=== PATIENT | female | born 1955 | race Caucasian/White ===

== ENCOUNTER → 2016-08-06 | Outpatient (REF) | payer OTHER ==
[~2016-08-06] MED LIST: ALEV220C2 PO; AMBI5TAB PO; ASPI1TAB PO; CENTTAB PO; CLON1TAB PO; DOCU10CA PO; ESTR1TAB3 PO; ESTR3TA PO; FISH1000 PO; GABA-283 PO; HYDR-3713 PO; LACT10SO29 PO; LYSI500C PO; MOBI15TA PO; PRIL20CA9 PO; PROBCAP4 PO; SALON PAS TOP; TAPA5TAB PO; TRAM50TA2 PO; VALT500T PO; VITA100041 PO; VITA10006 PO; VITA100072 PO; ZOCO20TA PO; [UNRECOGNIZED DRUG - OTHER] PO; [UNRECOGNIZED DRUG - REMARK] PO; [UNRECOGNIZED DRUG - REMARK] PO
[2016-08-06 11:50] LABS: BASO % 1.1 % (0.0-1.0); EOS # 0.2 K/mm3 (0.0-0.50); EOS % 6.5 % (0.0-3.0); LARGE UNSTAINED CELL # 0.1 K/mm3 (0.0-0.4); LARGE UNSTAINED CELL % 1.5 % (0.0-4.0); LYMPH # 1.1 K/mm3 (1.5-4.5); LYMPH % 29.6 % (24.0-44.0); MEAN CORPUSCULAR HEMOGLOBIN 30.5 pg (27.0-33.0); MEAN CORPUSCULAR HGB CONC 32.8 g/dl (32.0-36.5); MEAN CORPUSCULAR VOLUME 92.8 fl (80.0-96.0); MONO # 0.2 K/mm3 (0.0-0.8); MONO % 6.4 % (0.0-5.0); NEUTROPHILS # 1.9 K/mm3 (1.8-7.7); PLATELET COUNT, AUTOMATED 203 k/mm3 (150-450); WHITE BLOOD COUNT 3.5 K/mm3 (4.0-10.0)
[2016-08-06 11:52] LABS: ALBUMIN 3.4 GM/DL (3.2-5.2); ALBUMIN/GLOBULIN RATIO 1.31 (1.00-1.93); ALKALINE PHOSPHATASE 52 U/L (45-117); ALT/SGPT 23 U/L (12-78); ANION GAP 9 MEQ/L (8-16); AST/SGOT 20 U/L (15-37); BILIRUBIN,TOTAL 0.4 MG/DL (0.2-1.0); BLOOD UREA NITROGEN 14 MG/DL (7-18); CALCIUM LEVEL 8.8 MG/DL (8.5-10.1); CARBON DIOXIDE LEVEL 31 MEQ/L (21-32); CHLORIDE LEVEL 105 MEQ/L (98-107); CHOLESTEROL LEVEL 176 MG/DL (<200); CREATININE FOR GFR 0.84 MG/DL (0.55-1.02); FREE T4 0.67 NG/DL (0.76-1.46); GLOMERULAR FILTRATION RATE > 60.0 (>51); GLUCOSE, FASTING 75 MG/DL (70-105); POTASSIUM SERUM 4.3 MEQ/L (3.5-5.1); SODIUM LEVEL 145 MEQ/L (136-145); TRIGLYCERIDES LEVEL 49 MG/DL (<150)
[2016-08-06 12:06] LABS: VITAMIN B12 LEVEL 1591 PG/ML (247-911)
[2016-08-07 11:04] LABS: PRETREATED FOLATE FOR RBCFOL 10.9 NG/ML
== END ==
LOC: M SFHCPLAZ 07:58
PROVIDERS: ATTEND Family Medicine
DX: D72.819 Decreased white blood cell count, unspecified (principal); E55.9 Vitamin D deficiency, unspecified; E05.20 Thyrotoxicosis with toxic multinodular goiter without thyrotoxic crisis or storm; E53.8 Deficiency of other specified B group vitamins

== ENCOUNTER → 2016-08-30 | Outpatient (CLI) | payer OTHER ==
--- NOTE | 2016-08-31 03:15 | REP ---
Clinical: Contusion. Technique: AP, lateral, bilateral oblique views of the right foot. Findings: Age-related degenerative changes are appreciated. There is no evidence for acute fracture or dislocation. Very subtle non acute fracture at the base of the fifth metatarsal bone cannot be excluded. No subcutaneous emphysema or radiodense foreign body. Impression: No evidence for acute fracture or dislocation. Very subtle nonacute fracture at the base of the fifth metatarsal bone cannot be excluded and should be correlated with physical examination. Signed by Josue Brooks MD 08/31/2016 03:06 A
== END ==
LOC: M RAD 12:29
PROVIDERS: ATTEND Physician Assistant Medical
DX: R10.12 Left upper quadrant pain (principal)

== ENCOUNTER → 2016-10-15 | Outpatient (REF) | payer OTHER ==
[2016-10-15 12:11] LABS: MEAN CORPUSCULAR HEMOGLOBIN 30.2 pg (27.0-33.0); MEAN CORPUSCULAR HGB CONC 32.4 g/dl (32.0-36.5); MEAN CORPUSCULAR VOLUME 93.2 fl (80.0-96.0); RED CELL DISTRIBUTION WIDTH 13.1 % (11.5-14.5); WHITE BLOOD COUNT 3.8 K/mm3 (4.0-10.0)
[2016-10-15 12:42] LABS: ALBUMIN 3.5 GM/DL (3.2-5.2); ALKALINE PHOSPHATASE 53 U/L (45-117); ALT/SGPT 22 U/L (12-78); ANION GAP 5 MEQ/L (8-16); AST/SGOT 21 U/L (15-37); BILIRUBIN,TOTAL 0.5 MG/DL (0.2-1.0); BLOOD UREA NITROGEN 15 MG/DL (7-18); CALCIUM LEVEL 8.8 MG/DL (8.5-10.1); CARBON DIOXIDE LEVEL 33 MEQ/L (21-32); CHLORIDE LEVEL 106 MEQ/L (98-107); CREATININE FOR GFR 0.74 MG/DL (0.55-1.02); GLOMERULAR FILTRATION RATE > 60.0 (>51); GLUCOSE, FASTING 88 MG/DL (70-105); MAGNESIUM LEVEL 2.1 MG/DL (1.8-2.4); POTASSIUM SERUM 3.8 MEQ/L (3.5-5.1); SODIUM LEVEL 144 MEQ/L (136-145)
[2016-10-15 13:10] LABS: BASOPHILS 2 % (0-4); EOSINOPHILS 13 % (0-5)
[2016-10-15 13:11] LABS: ANISOCYTOSIS 1+
== END ==
LOC: M SFHCPLAZ 07:54
PROVIDERS: ATTEND Family Medicine
DX: D72.819 Decreased white blood cell count, unspecified (principal); E05.20 Thyrotoxicosis with toxic multinodular goiter without thyrotoxic crisis or storm; M05.79 Rheumatoid arthritis with rheumatoid factor of multiple sites without organ or systems involvement

== ENCOUNTER → 2016-11-28 | Outpatient (CLI) | payer OTHER ==
[2016-11-28 12:07] LABS: BASO % 0.6 % (0.0-1.0); EOS # 0.2 K/mm3 (0.0-0.50); EOS % 1.8 % (0.0-3.0); LARGE UNSTAINED CELL # 0.1 K/mm3 (0.0-0.4); LARGE UNSTAINED CELL % 1.1 % (0.0-4.0); LYMPH # 0.8 K/mm3 (1.5-4.5); LYMPH % 9.3 % (24.0-44.0); MEAN CORPUSCULAR HEMOGLOBIN 31.2 pg (27.0-33.0); MEAN CORPUSCULAR HGB CONC 33.6 g/dl (32.0-36.5); MEAN CORPUSCULAR VOLUME 92.8 fl (80.0-96.0); MONO # 0.3 K/mm3 (0.0-0.8); MONO % 3.1 % (0.0-5.0); NEUTROPHILS # 6.8 K/mm3 (1.8-7.7); NEUTROPHILS % 84.1 % (36.0-66.0); PLATELET COUNT, AUTOMATED 199 k/mm3 (150-450); RED CELL DISTRIBUTION WIDTH 12.7 % (11.5-14.5); WHITE BLOOD COUNT 8.1 K/mm3 (4.0-10.0)
--- NOTE | 2016-11-29 03:19 | REP ---
Clinical: Left upper quadrant abdominal pain. Technique: Upright view of the chest with supine and upright views of the abdomen and pelvis. Findings: Moderate chronic-appearing scoliosis noted. Frontal upright view of the chest demonstrates no acute cardiopulmonary process or free air below the diaphragm to suspect pneumoperitoneum. Supine and upright views of the abdomen and pelvis demonstrate nonspecific bowel gas pattern without obstruction or perforation. No organomegaly. Right intrarenal calculus cannot be excluded. Phleboliths noted in the pelvis. Impression: Nonspecific bowel gas pattern. Chronic scoliosis. Possible nephrolithiasis. Signed by Jsoue Brooks MD 11/29/2016 03:10 A
== END ==
LOC: M LAB 10:57
PROVIDERS: ATTEND Physician Assistant Medical
DX: R10.12 Left upper quadrant pain (principal)

== ENCOUNTER → 2017-03-12 | Outpatient (REF) | payer OTHER ==
[~2017-03-12] MED LIST changes: +VICO5TAB16 PO; +VITA-182 PO; -VITA100041 PO
[2017-03-12 12:20] LABS: MEAN CORPUSCULAR HGB CONC 32.7 g/dl (32.0-36.5); MEAN CORPUSCULAR VOLUME 91.6 fl (80.0-96.0); RED CELL DISTRIBUTION WIDTH 12.6 % (11.5-14.5); WHITE BLOOD COUNT 5.4 10^3/uL (4.0-10.0)
[2017-03-12 12:53] LABS: ALBUMIN 3.5 GM/DL (3.2-5.2); ALBUMIN/GLOBULIN RATIO 1.06 (1.00-1.93); ALKALINE PHOSPHATASE 64 U/L (45-117); ALT/SGPT 21 U/L (12-78); ANION GAP 6 MEQ/L (8-16); AST/SGOT 15 U/L (15-37); BILIRUBIN,TOTAL 0.4 MG/DL (0.2-1.0); BLOOD UREA NITROGEN 15 MG/DL (7-18); CALCIUM LEVEL 9.7 MG/DL (8.5-10.1); CARBON DIOXIDE LEVEL 30 MEQ/L (21-32); CHLORIDE LEVEL 104 MEQ/L (98-107); CHOLESTEROL LEVEL 216 MG/DL (<200); CREATININE FOR GFR 0.71 MG/DL (0.55-1.02); FREE T4 0.83 NG/DL (0.76-1.46); GLOMERULAR FILTRATION RATE > 60.0 (>51); GLUCOSE, FASTING 89 MG/DL (70-105); POTASSIUM SERUM 4.2 MEQ/L (3.5-5.1); SODIUM LEVEL 140 MEQ/L (136-145); TOTAL PROTEIN 6.8 GM/DL (6.4-8.2); TRIGLYCERIDES LEVEL 86 MG/DL (<150)
[2017-03-12 12:59] LABS: EOSINOPHILS 5 % (0-5)
== END ==
LOC: M SFHCPLAZ 09:59
PROVIDERS: ATTEND Family Medicine
DX: D72.819 Decreased white blood cell count, unspecified (principal); E78.2 Mixed hyperlipidemia; E66.3 Overweight

== ENCOUNTER → 2017-03-19 | Outpatient (REF) | payer OTHER ==
[2017-03-19 17:46] LABS: FREE T4 0.79 NG/DL (0.76-1.46)
[2017-03-20 09:30] LABS: THYROID PEROXIDASE ANTIBODY < 28.0 U/ML (<60.0)
== END ==
LOC: M SFHCPLAZ 11:33
PROVIDERS: ATTEND Family Medicine
DX: L50.9 Urticaria, unspecified (principal)

== ENCOUNTER → 2017-03-22 | Outpatient (CLI) | payer OTHER ==
--- NOTE | 2017-03-22 10:21 | REP ---
Thyroid sonography: History: Toxic multinodular goiter. Comparison study is from April 01, 2015. Findings: Thyroid isthmus remains thickened at 1.3 cm. Right lobe dimensions are 7.7 x 2.1 x 2.7 cm. The left lobe is also enlarged measuring 5.0 x 1.6 x 2.0 cm. The gland is heterogeneously enlarged with multiple nodules. On the right, there are two complex nodules measuring 1.2 x 0.6 x 1.1 cm and 4.6 x 2.0 x 4.3 cm. There is a right isthmic nodule measuring 1.2 cm in greatest diameter and a left isthmic nodule measuring 1.3 cm in greatest diameter. There is calcification in the left isthmus measuring 0.9 cm. A nodule in the left lobe measures 2.5 x 1.9 x 1.4 cm. The study is felt to be essentially unchanged. Impression: Multinodular goiter. Signed by Pedro Black MD 03/22/2017 03:49 P
== END ==
LOC: M RAD 08:39
PROVIDERS: ATTEND Family Medicine
DX: E04.2 Nontoxic multinodular goiter (principal)

== ENCOUNTER 2017-03-31 03:25 | Emergency (ER) | payer OTHER ==
[~2017-03-31] VITALS: Ht 170.2 cm; Wt 85.5 kg
[~2017-03-31 03:25] MED LIST changes: -VICO5TAB16 PO
[2017-03-31] MEDS ORDERED: VICO5TAB16 PO (03:40)
[2017-03-31 06:09] VITALS: BP 147/81
[2017-03-31] MEDS ORDERED: KETOROLAC 60 MG/2 ML VIAL (J1885) IM ONE (06:15)
--- NOTE | 2017-03-31 11:30 | REP ---
Cervical spine series: Five views. History: Pain. Comparison radiographs April 20, 2014. Findings: Lateral views show that the patient is status post ventral discectomy and fusion across the C3 through C6 level. There is discogenic spurring anteriorly at C2-3 and at C6-7 and C7-T1. There is reversal of the normal cervical lordosis. There is mild facet hypertrophy in the mid cervical spine. Vascular calcification is noted in the left carotid. No acute bony abnormality is seen. Impression: Status post ventral discectomy and fusion from C4-C7. Degenerative disc disease C6-7 and C7-T1 as well as mild discogenic spurring at C2-3. Straightening. Signed by Pedro Black MD 03/31/2017 08:06 A
== END 2017-03-31 06:42 | disposition home or self-care (01) ==
LOC: M ED 03:25
DX: G89.29 Other chronic pain (principal); M54.2 Cervicalgia; M54.6 Pain in thoracic spine; R06.02 Shortness of breath; E03.9 Hypothyroidism, unspecified; K21.9 Gastro-esophageal reflux disease without esophagitis; M19.90 Unspecified osteoarthritis, unspecified site; Z98.1 Arthrodesis status; Z79.899 Other long term (current) drug therapy; Z79.82 Long term (current) use of aspirin; Z88.0 Allergy status to penicillin; Z88.1 Allergy status to other antibiotic agents; F17.210 Nicotine dependence, cigarettes, uncomplicated
CPT/HCPCS: 72040; 96372; 99282; J1885

== ENCOUNTER → 2017-04-06 | Outpatient (CLI) | payer OTHER ==
[~2017-04-06] MED LIST changes: +VICO5TAB16 PO
--- NOTE | 2017-04-06 14:00 | REP ---
May a Shantell left shoulder four views: The acromioclavicular joint is widened. This could be postsurgical, post-traumatic or congenital. There is no acute fracture or dislocation. The glenohumeral articulation is unremarkable. No calcifications or foreign bodies. Impression: The acromioclavicular joint is widened. Otherwise, negative left shoulder. Signed by Paresh Zamudio MD 04/06/2017 01:52 P
--- NOTE | 2017-04-06 14:01 | REP ---
Left forearm two views: There is a tiny density in the soft tissues at the midshaft level, possibly a foreign body. There is no fracture or dislocation. Mineralization joint spaces otherwise are unremarkable. Signed by Paresh Zamudio MD 04/06/2017 01:53 P
== END ==
LOC: M RAD 12:25
PROVIDERS: ATTEND Physician Assistant Medical
DX: M79.602 Pain in left arm (principal)

== ENCOUNTER → 2017-04-09 | Outpatient (CLI) | payer OTHER ==
--- NOTE | 2017-04-09 20:23 | REP ---
LEFT ELBOW, COMPLETE: 04/09/2017. Comparison: Left forearm series. Clinical history: Elbow pain. Findings: Four views show no evidence of joint effusion on the lateral projection. I see no avulsion of the triceps insertion nor abnormal soft-tissue swelling about the olecranon. Radial head and capitellum align normally on all projections. There is no supracondylar fracture. Impression: 1. Negative left elbow series. Signed by Derrick Ramires MD 04/09/2017 08:32 P
--- NOTE | 2017-04-09 20:24 | REP ---
LEFT FOREARM SERIES, COMPLETE: 04/09/2017. Clinical history: Elbow and forearm pain. Findings: Two-view show the radius and ulna without fracture or focal lesion. Soft tissue calcification along the dorsal aspect of the forearm likely a phlebolith. Minor degenerative changes at the wrist noted. Impression: 1. No visible fracture. Signed by Derrick Ramires MD 04/09/2017 08:32 P
== END ==
LOC: M RAD 17:39
PROVIDERS: ATTEND Nurse Practitioner Adult Health
DX: M25.522 Pain in left elbow (principal)

== ENCOUNTER → 2017-06-05 | Outpatient (REF) | payer OTHER ==
[2017-06-05 16:03] LABS: FREE T4 0.59 NG/DL (0.76-1.46)
== END ==
LOC: M SFHCPLAZ 13:33
PROVIDERS: ATTEND Physician Assistant Medical
DX: F41.9 Anxiety disorder, unspecified (principal)

== ENCOUNTER 2017-06-18 10:34 | Outpatient (RCR) | payer OTHER | END 2017-07-17 | LOC: M PT 10:34 | DX: Z51.89 Encounter for other specified aftercare (principal); M48.02 Spinal stenosis, cervical region | CPT/HCPCS: 97010 ==

== ENCOUNTER → 2017-06-18 | Outpatient (REF) | payer OTHER ==
[2017-06-18 10:39] LABS: BASO % 0.9 % (0.0-1.0); EOS # 0.2 10^3/uL (0.0-0.50); EOS % 3.7 % (0.0-3.0); HEMATOCRIT 39.6 % (36.0-47.0); HEMOGLOBIN 12.7 g/dl (12.0-16.0); IMMATURE GRANULOCYTE % 0.2 % (0-0); LYMPH # 1.3 10^3/uL (1.5-4.5); LYMPH % 28.7 % (24.0-44.0); MEAN CORPUSCULAR HEMOGLOBIN 28.7 pg (27.0-33.0); MEAN CORPUSCULAR HGB CONC 32.1 g/dl (32.0-36.5); MEAN CORPUSCULAR VOLUME 89.6 fl (80.0-96.0); MONO # 0.4 10^3/uL (0.0-0.8); MONO % 8.3 % (0.0-5.0); NEUTROPHILS # 2.7 10^3/uL (1.8-7.7); NEUTROPHILS % 58.2 % (36.0-66.0); PLATELET COUNT, AUTOMATED 276 10^3/uL (150-450); RED BLOOD COUNT 4.42 10^6/uL (4.00-5.40); RED CELL DISTRIBUTION WIDTH 13.1 % (11.5-14.5); WHITE BLOOD COUNT 4.6 10^3/uL (4.0-10.0)
[2017-06-18 10:44] LABS: AMORPHOUS SEDIMENT MODERATE (NEGATIVE); APPEARANCE, URINE CLOUDY (CLEAR); BACTERIA, URINE AUTO NEGATIVE (NEGATIVE); BILIRUBIN, URINE AUTO 1+ (NEGATIVE); BLOOD, URINE BLOOD NEGATIVE (NEGATIVE); COLOR, URINE YELLOW (YELLOW); GLUCOSE, URINE (UA) AUTO NEGATIVE (NEGATIVE); KETONE, URINE AUTO NEGATIVE (NEGATIVE); LEUKOCYTE ESTERASE, URINE AUTO NEGATIVE (NEGATIVE); NITRITE, URINE AUTO NEGATIVE (NEGATIVE); PROTEIN, URINE AUTO NEGATIVE (NEGATIVE); RBC, URINE AUTO 1 /HPF (0-3); SPECIFIC GRAVITY URINE AUTO 1.016 (1.002-1.035); SQUAMOUS EPITHELIAL CELL UR AU 0 /HPF (0-6); WBC, URINE AUTO 0 /HPF (0-3)
[2017-06-18 10:57] LABS: PTH INTACT 27.8 PG/ML (14.0-72.0); TOTAL 25(OH) VITAMIN D 38.3 NG/ML (30.0-100.0)
[2017-06-18 11:01] LABS: ESTIMATED AVERAGE GLUCOSE 108 MG/DL (60-110); HEMOGLOBIN A1c 5.4 %
[2017-06-18 11:07] LABS: ALBUMIN 3.3 GM/DL (3.2-5.2); ALKALINE PHOSPHATASE 83 U/L (45-117); ALT/SGPT 17 U/L (12-78); ANION GAP 5 MEQ/L (8-16); AST/SGOT 18 U/L (7-37); BILIRUBIN,TOTAL 0.4 MG/DL (0.2-1.0); BLOOD UREA NITROGEN 17 MG/DL (7-18); CALCIUM LEVEL 9.2 MG/DL (8.5-10.1); CARBON DIOXIDE LEVEL 34 MEQ/L (21-32); CHLORIDE LEVEL 103 MEQ/L (98-107); CREATININE FOR GFR 0.62 MG/DL (0.55-1.02); FREE T4 0.56 NG/DL (0.76-1.46); GLOMERULAR FILTRATION RATE > 60.0 (>51); GLUCOSE, FASTING 85 MG/DL (70-105); POTASSIUM SERUM 4.2 MEQ/L (3.5-5.1); SODIUM LEVEL 142 MEQ/L (136-145); TOTAL PROTEIN 6.3 GM/DL (6.4-8.2)
[2017-06-18 11:09] LABS: CREATININE, URINE 86.4 MG/DL; MALB URINE SIEMENS < 5.0 MG/L; MAU/CREAT RATIO 5.7 MCG/MG (0.0-30.0)
== END ==
LOC: M SFHCPLAZ 09:10
DX: N30.00 Acute cystitis without hematuria (principal); D72.819 Decreased white blood cell count, unspecified; E55.9 Vitamin D deficiency, unspecified; E05.20 Thyrotoxicosis with toxic multinodular goiter without thyrotoxic crisis or storm; R73.01 Impaired fasting glucose

== ENCOUNTER → 2017-08-19 | Outpatient (CLI) | payer OTHER | LOC: M WHC 14:12 | DX: Z12.31 Encounter for screening mammogram for malignant neoplasm of breast (principal); Z78.0 Asymptomatic menopausal state | CPT/HCPCS: 77067 ==

== ENCOUNTER → 2017-10-17 | Outpatient (REF) | payer OTHER | LOC: M SFHCWAGY 17:47 | DX: N94.10 Unspecified dyspareunia (principal); N89.8 Other specified noninflammatory disorders of vagina; R30.0 Dysuria | CPT/HCPCS: 87086 ==

== ENCOUNTER → 2017-10-21 | Outpatient (REF) | payer OTHER ==
[2017-10-21 11:49] LABS: BASO % 1.1 % (0.0-1.0); EOS # 0.3 10^3/uL (0.0-0.50); EOS % 8.2 % (0.0-3.0); HEMATOCRIT 41.4 % (36.0-47.0); HEMOGLOBIN 13.4 g/dl (12.0-15.5); IMMATURE GRANULOCYTE % 0.3 % (0-3.0); LYMPH # 1.5 10^3/uL (1.5-4.5); MEAN CORPUSCULAR HEMOGLOBIN 29.3 pg (27.0-33.0); MEAN CORPUSCULAR HGB CONC 32.4 g/dl (32.0-36.5); MEAN CORPUSCULAR VOLUME 90.6 fl (80.0-96.0); MONO # 0.3 10^3/uL (0.0-0.8); MONO % 8.5 % (0.0-5.0); NEUTROPHILS # 1.5 10^3/uL (1.8-7.7); NEUTROPHILS % 40.9 % (36.0-66.0); PLATELET COUNT, AUTOMATED 246 10^3/uL (150-450); RED BLOOD COUNT 4.57 10^6/uL (4.00-5.40); RED CELL DISTRIBUTION WIDTH 14.5 % (11.5-14.5); WHITE BLOOD COUNT 3.5 10^3/uL (4.0-10.0)
[2017-10-21 12:09] LABS: VITAMIN B12 LEVEL 1214 PG/ML (247-911)
[2017-10-21 12:46] LABS: ALBUMIN 3.7 GM/DL (3.2-5.2); ALBUMIN/GLOBULIN RATIO 1.19 (1.00-1.93); ALKALINE PHOSPHATASE 75 U/L (45-117); ALT/SGPT 23 U/L (12-78); ANION GAP 7 MEQ/L (8-16); AST/SGOT 24 U/L (7-37); BILIRUBIN,TOTAL 0.5 MG/DL (0.2-1.0); BLOOD UREA NITROGEN 17 MG/DL (7-18); C REACTIVE PROTEIN QUANTITATIV < 0.30 MG/DL (0.00-0.30); CALCIUM LEVEL 9.4 MG/DL (8.8-10.2); CARBON DIOXIDE LEVEL 30 MEQ/L (21-32); CHLORIDE LEVEL 105 MEQ/L (98-107); CHOLESTEROL LEVEL 229 MG/DL (<200); CHOLESTEROL RISK RATIO 2.662 (<5); CPK CREATINE PHOSPHOKINASE 185 U/L (26-192); CREATININE FOR GFR 1.02 MG/DL (0.55-1.30); FREE T4 0.58 NG/DL (0.76-1.46); GLOMERULAR FILTRATION RATE 58.8 (>45); GLUCOSE, FASTING 83 MG/DL (70-100); HDL CHOLESTEROL 86 MG/DL (>40); LDL CHOLESTEROL 129.4 MG/DL (<100); NON-HDL-C 143 MG/DL; POTASSIUM SERUM 4.3 MEQ/L (3.5-5.1); SODIUM LEVEL 142 MEQ/L (136-145); TOTAL PROTEIN 6.8 GM/DL (6.4-8.2); TRIGLYCERIDES LEVEL 68 MG/DL (<150)
[2017-10-21 12:59] LABS: ESTIMATED AVERAGE GLUCOSE 108 MG/DL (60-110); HEMOGLOBIN A1c 5.4 %
[2017-10-22 14:19] LABS: INSULIN LEVEL 5.2 uIU/mL (2.6-24.9)
== END ==
LOC: M SFHCPLAZ 08:31
DX: E53.8 Deficiency of other specified B group vitamins (principal); E78.2 Mixed hyperlipidemia; R73.01 Impaired fasting glucose
CPT/HCPCS: 82550

== ENCOUNTER → 2017-10-30 | Outpatient (CLI) | payer OTHER | LOC: M SLEEP HO 09:40 | DX: G47.33 Obstructive sleep apnea (adult) (pediatric) (principal) | CPT/HCPCS: G0399 ==

== ENCOUNTER → 2017-11-04 | Outpatient (CLI) | payer OTHER | LOC: M SMT 10:00 | DX: R05 Cough (principal); Z98.1 Arthrodesis status | CPT/HCPCS: 70360 ==

== ENCOUNTER → 2017-11-12 | Outpatient (REF) | payer OTHER | LOC: M SFHCWAGY 11:28 | DX: Z12.4 Encounter for screening for malignant neoplasm of cervix (principal) ==

== ENCOUNTER → 2017-11-18 | Outpatient (CLI) | payer OTHER ==
[~2017-11-18] MED LIST changes: -ALEV220C2 PO; -AMBI5TAB PO; -ASPI1TAB PO; -CENTTAB PO; -CLON1TAB PO; -DOCU10CA PO; -ESTR1TAB3 PO; -ESTR3TA PO; -FISH1000 PO; -GABA-283 PO; -HYDR-3713 PO; +ISOVUE-370 76% 100ML VIAL (Q9967) As Ordered; -LACT10SO29 PO; -LYSI500C PO; -MOBI15TA PO; -PRIL20CA9 PO; -PROBCAP4 PO; -SALON PAS TOP; -TAPA5TAB PO; -TRAM50TA2 PO; -VALT500T PO; -VICO5TAB16 PO; -VITA-182 PO; -VITA10006 PO; -VITA100072 PO; -ZOCO20TA PO; -[UNRECOGNIZED DRUG - OTHER] PO; -[UNRECOGNIZED DRUG - REMARK] PO; -[UNRECOGNIZED DRUG - REMARK] PO
== END ==
LOC: M RAD 16:38
DX: R05 Cough (principal); R91.8 Other nonspecific abnormal finding of lung field; R60.0 Localized edema
CPT/HCPCS: Q9967

== ENCOUNTER → 2017-12-27 | Outpatient (CLI) | payer OTHER ==
[~2017-12-27] MED LIST changes: +E-Z-GAS II EFFERVESCENT PACKET (SODIUM BICARB./CITRIC ACID/SIMETHICONE) As Ordered; +E-Z-HD 98% w/w 340GM SUSP BTL As Ordered; +E-Z-PAQUE 96% w/w SUSP 176GM BTL As Ordered; -ISOVUE-370 76% 100ML VIAL (Q9967) As Ordered
== END ==
LOC: M RAD 07:32
DX: R13.12 Dysphagia, oropharyngeal phase (principal)
CPT/HCPCS: 74220

== ENCOUNTER → 2018-01-22 | Outpatient (CLI) | payer OTHER | LOC: M RAD 09:59 | DX: R05 Cough (principal); E05.20 Thyrotoxicosis with toxic multinodular goiter without thyrotoxic crisis or storm | CPT/HCPCS: 76536 ==

== ENCOUNTER 2018-02-26 14:41 | Emergency (ER) | payer OTHER ==
[2018-02-26] MEDS: NORCO, ANEXSIA 5/325MG TABLET (HYDROcodone/ACETAMINOPHEN) PO (17:22)
== END 2018-02-26 17:35 | disposition home or self-care (01) ==
LOC: M ED 14:41
DX: S60.212A Contusion of left wrist, initial encounter (principal); S46.911A Strain of unspecified muscle, fascia and tendon at shoulder and upper arm level, right arm, initial encounter; W19.XXXA Unspecified fall, initial encounter; Y92.099 Unspecified place in other non-institutional residence as the place of occurrence of the external cause; Y93.9 Activity, unspecified; Y99.9 Unspecified external cause status; R29.6 Repeated falls; Z98.1 Arthrodesis status; E78.00 Pure hypercholesterolemia, unspecified; R51 Headache; F41.9 Anxiety disorder, unspecified; Z87.891 Personal history of nicotine dependence; Z79.82 Long term (current) use of aspirin; Z79.899 Other long term (current) drug therapy; Z88.0 Allergy status to penicillin; Z88.1 Allergy status to other antibiotic agents; Z88.8 Allergy status to other drugs, medicaments and biological substances
CPT/HCPCS: 73030

== ENCOUNTER → 2018-03-04 | Outpatient (REF) | payer OTHER ==
[2018-03-04 11:15] LABS: BASO % 0.7 % (0.0-1.0); EOS # 0.1 10^3/uL (0.0-0.50); EOS % 2.6 % (0.0-3.0); HEMATOCRIT 40.7 % (36.0-47.0); IMMATURE GRANULOCYTE % 0.2 % (0-3.0); LYMPH # 1.1 10^3/uL (1.5-4.5); LYMPH % 27.2 % (24.0-44.0); MEAN CORPUSCULAR HEMOGLOBIN 28.6 pg (27.0-33.0); MEAN CORPUSCULAR HGB CONC 31.9 g/dl (32.0-36.5); MEAN CORPUSCULAR VOLUME 89.6 fl (80.0-96.0); MONO # 0.4 10^3/uL (0.0-0.8); MONO % 8.4 % (0.0-5.0); NEUTROPHILS # 2.6 10^3/uL (1.8-7.7); NEUTROPHILS % 60.9 % (36.0-66.0); PLATELET COUNT, AUTOMATED 240 10^3/uL (150-450); RED BLOOD COUNT 4.54 10^6/uL (4.00-5.40); RED CELL DISTRIBUTION WIDTH 13.2 % (11.5-14.5); WHITE BLOOD COUNT 4.2 10^3/uL (4.0-10.0)
[2018-03-04 11:42] LABS: ALBUMIN 3.5 GM/DL (3.2-5.2); ALBUMIN/GLOBULIN RATIO 1.13 (1.00-1.93); ALKALINE PHOSPHATASE 64 U/L (45-117); ALT/SGPT 22 U/L (12-78); ANION GAP 6 MEQ/L (8-16); AST/SGOT 15 U/L (7-37); BILIRUBIN,TOTAL 0.4 MG/DL (0.2-1.0); BLOOD UREA NITROGEN 15 MG/DL (7-18); C REACTIVE PROTEIN QUANTITATIV < 0.30 MG/DL (0.00-0.30); CALCIUM LEVEL 9.1 MG/DL (8.8-10.2); CARBON DIOXIDE LEVEL 31 MEQ/L (21-32); CHLORIDE LEVEL 105 MEQ/L (98-107); CHOLESTEROL LEVEL 198 MG/DL (<200); CHOLESTEROL RISK RATIO 2.538 (<5); CPK CREATINE PHOSPHOKINASE 92 U/L (26-192); CREATININE FOR GFR 0.72 MG/DL (0.55-1.30); FREE T4 0.76 NG/DL (0.76-1.46); GLOMERULAR FILTRATION RATE > 60.0 (>45); GLUCOSE, FASTING 84 MG/DL (70-100); HDL CHOLESTEROL 78 MG/DL (>40); LDL CHOLESTEROL 105 MG/DL (<100); NON-HDL-C 120 MG/DL; POTASSIUM SERUM 4.1 MEQ/L (3.5-5.1); PTH INTACT 51.3 PG/ML (18.5-88.0); SODIUM LEVEL 142 MEQ/L (136-145); THYROID STIMULATING HORMONE 0.031 uIU/ML (0.358-3.740); TOTAL 25(OH) VITAMIN D 35.5 NG/ML (30.0-100.0); TOTAL PROTEIN 6.6 GM/DL (6.4-8.2); TRIGLYCERIDES LEVEL 76 MG/DL (<150)
== END ==
LOC: M SFHCPLAZ 10:07
DX: D72.819 Decreased white blood cell count, unspecified (principal); E55.9 Vitamin D deficiency, unspecified

== ENCOUNTER 2018-03-18 10:24 | Day surgery (SDC) | payer OTHER ==
[2018-03-18] MEDS: NS 1,000 ML IV (10:47)
[2018-03-18] MEDS ORDERED: fentaNYL 100 MCG/2 ML INJECTION (J3010) As Ordered (11:24)
[2018-03-18] MEDS ORDERED: PROPOFOL 500 MG/50 ML VIAL As Ordered (11:41)
[2018-03-18] MEDS ORDERED: LIDOCAINE 2% INJ 100 MG/5 ML SDV (FOR ANES.) As Ordered (11:41)
== END 2018-03-18 12:18 | disposition home or self-care (01) ==
LOC: M OPP 10:24
DX: R13.19 Other dysphagia (principal); K22.2 Esophageal obstruction; K44.9 Diaphragmatic hernia without obstruction or gangrene; R01.1 Cardiac murmur, unspecified; E05.90 Thyrotoxicosis, unspecified without thyrotoxic crisis or storm; K59.00 Constipation, unspecified; K21.9 Gastro-esophageal reflux disease without esophagitis; R12 Heartburn; E78.5 Hyperlipidemia, unspecified; R63.4 Abnormal weight loss; R63.0 Anorexia; D64.9 Anemia, unspecified; R05 Cough; M06.9 Rheumatoid arthritis, unspecified; M19.90 Unspecified osteoarthritis, unspecified site; M54.89 Other dorsalgia; M54.2 Cervicalgia; M79.7 Fibromyalgia; M81.0 Age-related osteoporosis without current pathological fracture; Z85.820 Personal history of malignant melanoma of skin; R29.6 Repeated falls; F41.9 Anxiety disorder, unspecified; R51 Headache; G89.29 Other chronic pain; H93.19 Tinnitus, unspecified ear; Z78.0 Asymptomatic menopausal state; J45.909 Unspecified asthma, uncomplicated; G47.30 Sleep apnea, unspecified; Z96.653 Presence of artificial knee joint, bilateral; Z88.0 Allergy status to penicillin; Z88.1 Allergy status to other antibiotic agents; Z88.8 Allergy status to other drugs, medicaments and biological substances; Z79.82 Long term (current) use of aspirin; Z79.899 Other long term (current) drug therapy; Z98.1 Arthrodesis status; Z80.8 Family history of malignant neoplasm of other organs or systems; Z87.891 Personal history of nicotine dependence
CPT/HCPCS: 43239

== ENCOUNTER → 2018-03-20 | Outpatient (CLI) | payer OTHER | LOC: M RAD 11:46 | DX: E05.20 Thyrotoxicosis with toxic multinodular goiter without thyrotoxic crisis or storm (principal) | CPT/HCPCS: 76536 ==

== ENCOUNTER 2018-03-25 11:13 | Emergency (ER) | payer OTHER ==
[2018-03-25] MEDS: KETOROLAC 60 MG/2 ML VIAL (J1885) IM (12:26)
== END 2018-03-25 13:45 | disposition home or self-care (01) ==
LOC: M ED 11:13
DX: J20.9 Acute bronchitis, unspecified (principal); R00.0 Tachycardia, unspecified; R94.31 Abnormal electrocardiogram [ECG] [EKG]; G44.209 Tension-type headache, unspecified, not intractable; L03.011 Cellulitis of right finger; M54.9 Dorsalgia, unspecified; Z87.891 Personal history of nicotine dependence; Z79.82 Long term (current) use of aspirin; Z79.899 Other long term (current) drug therapy; Z88.0 Allergy status to penicillin; Z88.1 Allergy status to other antibiotic agents; Z88.8 Allergy status to other drugs, medicaments and biological substances
CPT/HCPCS: J1885

== ENCOUNTER 2018-03-25 22:47 | Emergency (ER) | payer OTHER ==
[2018-03-26] MEDS: predniSONE 20 MG TAB PO (03:15)
[2018-03-26] MEDS: IPRATROPIUM 0.5MG/ALBUTEROL 2.5MG INH SOL UD 3ML (DUONEB)(J7620) NEB ×3 (03:27→03:59)
== END 2018-03-26 05:37 | disposition home or self-care (01) ==
LOC: M ED 22:47
DX: J45.901 Unspecified asthma with (acute) exacerbation (principal); G47.30 Sleep apnea, unspecified; Z79.82 Long term (current) use of aspirin; Z79.891 Long term (current) use of opiate analgesic; Z79.899 Other long term (current) drug therapy; Z88.0 Allergy status to penicillin; Z88.1 Allergy status to other antibiotic agents; Z88.8 Allergy status to other drugs, medicaments and biological substances
CPT/HCPCS: 71046

== ENCOUNTER 2018-03-31 17:30 | Emergency (ER) | payer OTHER ==
[2018-03-31 18:27] LABS: BASO % 0.1 % (0.0-1.0); HEMATOCRIT 40.2 % (36.0-47.0); IMMATURE GRANULOCYTE % 0.9 % (0-3.0); LYMPH # 0.8 10^3/uL (1.5-4.5); LYMPH % 10.2 % (24.0-44.0); MEAN CORPUSCULAR HEMOGLOBIN 28.4 pg (27.0-33.0); MEAN CORPUSCULAR HGB CONC 32.3 g/dl (32.0-36.5); MONO # 0.4 10^3/uL (0.0-0.8); MONO % 4.5 % (0.0-5.0); NEUTROPHILS # 6.6 10^3/uL (1.8-7.7); NEUTROPHILS % 84.3 % (36.0-66.0); PLATELET COUNT, AUTOMATED 351 10^3/uL (150-450); RED BLOOD COUNT 4.57 10^6/uL (4.00-5.40); RED CELL DISTRIBUTION WIDTH 13.3 % (11.5-14.5); WHITE BLOOD COUNT 7.8 10^3/uL (4.0-10.0)
[2018-03-31 18:45] LABS: INR 0.97
[2018-03-31 19:08] LABS: ALBUMIN 3.6 GM/DL (3.2-5.2); ALBUMIN/GLOBULIN RATIO 1.06 (1.00-1.93); ALKALINE PHOSPHATASE 75 U/L (45-117); ALT/SGPT 38 U/L (12-78); ANION GAP 10 MEQ/L (8-16); AST/SGOT 31 U/L (7-37); BILIRUBIN,DIRECT < 0.1 MG/DL (0.0-0.2); BILIRUBIN,TOTAL 0.1 MG/DL (0.2-1.0); BLOOD UREA NITROGEN 13 MG/DL (7-18); CALCIUM LEVEL 8.9 MG/DL (8.8-10.2); CARBON DIOXIDE LEVEL 25 MEQ/L (21-32); CHLORIDE LEVEL 104 MEQ/L (98-107); CPK CREATINE PHOSPHOKINASE 415 U/L (26-192); CREATININE FOR GFR 0.97 MG/DL (0.55-1.30); GLOMERULAR FILTRATION RATE > 60.0 (>45); GLUCOSE, FASTING 125 MG/DL (70-100); NT-PRO BNP 38 PG/ML (<125); POTASSIUM SERUM 4.7 MEQ/L (3.5-5.1); SODIUM LEVEL 139 MEQ/L (136-145); THYROID STIMULATING HORMONE 0.006 uIU/ML (0.358-3.740); THYROXINE (T4) 8.9 UG/DL (4.5-12.0); TROPONIN I < 0.02 NG/ML (< 0.10)
[2018-03-31] MEDS: ALBUTEROL SULFATE 2.5 MG/0.5 ML INH NEB SOLN NEB (19:37)
[2018-03-31] MEDS ORDERED: ISOVUE-370 76% 100ML VIAL (Q9967) As Ordered (19:46)
[2018-03-31 20:10] LABS: ABG BASE EXCESS -0.5 (-2.0-2.0); ABG HCO3 23.1 MEQ/L (22.0-26.0); ABG O2 SATURATION 96.1 % (95.0-99.0); ABG PARTIAL PRESSURE CO2 34.7 mmHg (35.0-45.0); ABG PARTIAL PRESSURE O2 78.6 mmHg (75.0-100.0); ABG TOTAL CO2 24.2 MEQ/L (23.0-31.0); ABG pH (ARTERIAL) 7.441 UNITS (7.350-7.450)
[2018-03-31] MEDS: NS 500 ML IV (21:22)
[2018-03-31] MEDS: IPRATROPIUM 0.5MG/ALBUTEROL 2.5MG INH SOL UD 3ML (DUONEB)(J7620) NEB (21:26)
[2018-03-31] MEDS: KETOROLAC 30 MG/ML VIAL (J1885) IV (23:39)
== END 2018-04-01 01:12 | disposition home or self-care (01) ==
LOC: M ED 04-01 01:12
DX: E86.0 Dehydration (principal); J42 Unspecified chronic bronchitis; E03.9 Hypothyroidism, unspecified; F41.9 Anxiety disorder, unspecified; E78.5 Hyperlipidemia, unspecified; J43.9 Emphysema, unspecified; G47.33 Obstructive sleep apnea (adult) (pediatric); Z79.82 Long term (current) use of aspirin; Z88.0 Allergy status to penicillin; Z88.1 Allergy status to other antibiotic agents; Z87.891 Personal history of nicotine dependence
CPT/HCPCS: Q9967

== ENCOUNTER → 2018-04-03 | Outpatient (REF) | payer OTHER | LOC: M SFHCPLAZ 13:18 | DX: R05 Cough (principal) | CPT/HCPCS: 87205 ==

== ENCOUNTER → 2018-04-11 | Outpatient (CLI) | payer OTHER | LOC: M RAD 06:52 | DX: R05 Cough (principal); Z98.1 Arthrodesis status; J98.11 Atelectasis; E04.2 Nontoxic multinodular goiter; K80.20 Calculus of gallbladder without cholecystitis without obstruction | CPT/HCPCS: 71250 ==

== ENCOUNTER → 2018-04-11 | Outpatient (REF) | payer OTHER | LOC: M SFHCPLAZ 14:03 | DX: B07.9 Viral wart, unspecified (principal) | CPT/HCPCS: 88305 ==

== ENCOUNTER → 2018-04-14 | Outpatient (REF) | payer OTHER | LOC: M SFHCADAM 15:25 | DX: R05 Cough (principal) | CPT/HCPCS: 87205 ==

== ENCOUNTER → 2018-05-26 | Outpatient (CLI) | payer OTHER | LOC: M SLEEP 19:06 | DX: G47.33 Obstructive sleep apnea (adult) (pediatric) (principal); G47.61 Periodic limb movement disorder | CPT/HCPCS: 95811 ==

== ENCOUNTER → 2018-07-11 | Outpatient (REF) | payer OTHER ==
[~2018-07-11] MED LIST changes: +ALBU83IN INH; +ALEV220C2 PO; +AMBI5TAB PO; +ASPI1TAB PO; +BACT800T5 PO; +CENTTAB PO; +CITA20TA4 PO; +CLON1TAB8 PO; +CYCL10TA PO; +CYCL5TAB; +DOCU100C16; +DOCU10CA PO; -E-Z-GAS II EFFERVESCENT PACKET (SODIUM BICARB./CITRIC ACID/SIMETHICONE) As Ordered; -E-Z-HD 98% w/w 340GM SUSP BTL As Ordered; -E-Z-PAQUE 96% w/w SUSP 176GM BTL As Ordered; +ESTR1TAB3 PO; +ESTR3TA PO; +FISH1000 PO; +FISH1200 PO; +GABA-845 PO; +GABA600T4 PO; +HYDR-3713 PO; +LACT10SO29 PO; +LYSI500C PO; +MIRA3350 PO; +MOBI15TA PO; +OMEP40CA2 PO; +OXYC-517 PO; +PRED20TA PO; +PRED5TA PO; +PRIL20CA9 PO; +PROBCAP4 PO; +SALON PAS TOP; +SIMV20TA2 PO; +SLEE25TA PO; +TAPA5TAB PO; +TRAM50TA2 PO; +VALT500T PO; +VICO5TAB16 PO; +VITA-182 PO; +VITA10006 PO; +VITA100072 PO; +VITA2000; +VITA200016 PO; +ZOCO20TA PO; +[UNRECOGNIZED DRUG - OTHER] PO; +[UNRECOGNIZED DRUG - REMARK] PO; +[UNRECOGNIZED DRUG - REMARK] PO
[2018-07-11 11:52] LABS: BASO % 0.6 % (0.0-1.0); EOS # 0.3 10^3/uL (0.0-0.50); EOS % 4.7 % (0.0-3.0); HEMOGLOBIN 12.9 g/dl (12.0-15.5); LYMPH # 1.4 10^3/uL (1.5-4.5); LYMPH % 26.9 % (24.0-44.0); MEAN CORPUSCULAR HEMOGLOBIN 27.2 pg (27.0-33.0); MEAN CORPUSCULAR HGB CONC 31.5 g/dl (32.0-36.5); MEAN CORPUSCULAR VOLUME 86.3 fl (80.0-96.0); MONO # 0.4 10^3/uL (0.0-0.8); MONO % 7.3 % (0.0-5.0); NEUTROPHILS # 3.2 10^3/uL (1.8-7.7); NEUTROPHILS % 60.3 % (36.0-66.0); PLATELET COUNT, AUTOMATED 262 10^3/uL (150-450); RED BLOOD COUNT 4.75 10^6/uL (4.00-5.40); WHITE BLOOD COUNT 5.4 10^3/uL (4.0-10.0)
[2018-07-11 12:10] LABS: HEMOGLOBIN A1c 5.8 %
[2018-07-11 12:51] LABS: ALBUMIN 3.7 GM/DL (3.2-5.2); ALT/SGPT 23 U/L (12-78); BILIRUBIN,TOTAL 0.4 MG/DL (0.2-1.0); BLOOD UREA NITROGEN 16 MG/DL (7-18); CALCIUM LEVEL 9.1 MG/DL (8.8-10.2); CARBON DIOXIDE LEVEL 30 MEQ/L (21-32); CHLORIDE LEVEL 105 MEQ/L (98-107); CREATININE FOR GFR 0.77 MG/DL (0.55-1.30); FREE T4 0.61 NG/DL (0.76-1.46); GLOMERULAR FILTRATION RATE > 60.0 (>45); GLUCOSE, FASTING 76 MG/DL (70-100); SODIUM LEVEL 142 MEQ/L (136-145); THYROID STIMULATING HORMONE 0.771 uIU/ML (0.358-3.740); TOTAL PROTEIN 6.6 GM/DL (6.4-8.2)
[2018-07-14 07:44] LABS: VITAMIN B12 LEVEL 822 PG/ML (232-1245)
== END ==
LOC: M SFHCPLAZ 07:59
PROVIDERS: ATTEND Family Medicine
DX: E53.8 Deficiency of other specified B group vitamins (principal); R73.01 Impaired fasting glucose; E05.20 Thyrotoxicosis with toxic multinodular goiter without thyrotoxic crisis or storm

== ENCOUNTER → 2018-07-28 | Outpatient (CLI) | payer OTHER | LOC: M RAD 15:24 | PROVIDERS: ATTEND Family Medicine | DX: M47.816 Spondylosis without myelopathy or radiculopathy, lumbar region (principal); Z53.8 Procedure and treatment not carried out for other reasons ==

== ENCOUNTER → 2018-08-05 | Outpatient (CLI) | payer OTHER ==
--- NOTE | 2018-08-06 03:23 | REP ---
Clinical: Spondylosis. Technique: AP, lateral, swimmers views of the thoracic spine. Findings: Mild chronic dextroconvex scoliosis is appreciated along with marginal osteophytosis and minimal endplate sclerosis/disc space narrowing. Kyphosis maintained. No acute fracture / compression injury or subluxation. Findings: Chronic dextroconvex scoliosis and mild multilevel degenerative changes. Electronically Signed by Josue Brooks MD 08/06/2018 03:14 A
--- NOTE | 2018-08-06 03:25 | REP ---
Clinical: Spondylosis. Technique: AP, lateral, bilateral oblique, flexion/extension, and coned-down views of the lumbosacral spine. Findings: Chronic levoconvex scoliosis with asymmetric advanced predominantly right-sided osteophytosis, endplate sclerosis and disc space narrowing. No obvious acute fracture / compression injury or subluxation. Impression: Chronic levoconvex scoliosis and advanced multilevel degenerative changes. Consider MRI for further investigation if the patient remains symptomatic. Electronically Signed by Josue Brooks MD 08/06/2018 03:16 A
== END ==
LOC: M RAD 12:18
PROVIDERS: ATTEND Family Medicine
DX: M47.814 Spondylosis without myelopathy or radiculopathy, thoracic region (principal)

== ENCOUNTER → 2018-09-12 | Outpatient (REF) | payer OTHER ==
[2018-09-12 13:36] LABS: BASO % 0.6 % (0.0-1.0); EOS # 0.2 10^3/uL (0.0-0.50); EOS % 3.8 % (0.0-3.0); HEMATOCRIT 39.9 % (36.0-47.0); HEMOGLOBIN 12.6 g/dl (12.0-15.5); LYMPH # 1.3 10^3/uL (1.5-4.5); LYMPH % 27.3 % (24.0-44.0); MEAN CORPUSCULAR HEMOGLOBIN 27.2 pg (27.0-33.0); MEAN CORPUSCULAR HGB CONC 31.6 g/dl (32.0-36.5); MEAN CORPUSCULAR VOLUME 86.2 fl (80.0-96.0); MONO # 0.5 10^3/uL (0.0-0.8); MONO % 10.6 % (0.0-5.0); NEUTROPHILS # 2.8 10^3/uL (1.8-7.7); NEUTROPHILS % 57.3 % (36.0-66.0); PLATELET COUNT, AUTOMATED 256 10^3/uL (150-450); RED BLOOD COUNT 4.63 10^6/uL (4.00-5.40); WHITE BLOOD COUNT 4.8 10^3/uL (4.0-10.0)
[2018-09-12 13:46] LABS: INR 1.09; PARTIAL THROMBOPLASTIN TIME 33.9 SECONDS (25.4-37.6); PROTHROMBIN TIME 14.2 SECONDS (12.1-14.4)
[2018-09-12 14:21] LABS: ALBUMIN 3.7 GM/DL (3.2-5.2); ALT/SGPT 21 U/L (12-78); BILIRUBIN,TOTAL 0.4 MG/DL (0.2-1.0); BLOOD UREA NITROGEN 18 MG/DL (7-18); CALCIUM LEVEL 9.3 MG/DL (8.8-10.2); CARBON DIOXIDE LEVEL 29 MEQ/L (21-32); CHLORIDE LEVEL 104 MEQ/L (98-107); FREE T4 0.87 NG/DL (0.76-1.46); GLOMERULAR FILTRATION RATE > 60.0 (>45); GLUCOSE, FASTING 89 MG/DL (70-100); POTASSIUM SERUM 4.3 MEQ/L (3.5-5.1); SODIUM LEVEL 141 MEQ/L (136-145); THYROID STIMULATING HORMONE 0.159 uIU/ML (0.358-3.740); TOTAL PROTEIN 6.5 GM/DL (6.4-8.2)
== END ==
LOC: M SFHCPLAZ 11:14
PROVIDERS: ATTEND Family Medicine
DX: M12.819 Other specific arthropathies, not elsewhere classified, unspecified shoulder (principal); R73.01 Impaired fasting glucose

== ENCOUNTER 2018-11-15 14:36 | Emergency (ER) | payer OTHER ==
[~2018-11-15] VITALS: Ht 170.2 cm; Wt 108.4 kg
[2018-11-15 14:36] VITALS: BP 140/86
[~2018-11-15 14:36] MED LIST changes: -ASPI1TAB PO; +ASPI81TA26 PO; -CITA20TA4 PO; +CITA20TA6 PO; -VICO5TAB16 PO; +VICO5TAB17 PO; +VITA100018 PO; -VITA100072 PO
[2018-11-15] MEDS ORDERED: CLIN150C14 PO (14:53)
[2018-11-15] MEDS ORDERED: CLAR10CA3 PO (16:20)
[2018-11-15] MEDS ORDERED: BACT800T5 PO (16:20)
[2018-11-15] MEDS ORDERED: HYDR1CRE30 TOP (16:20)
[2018-11-15] MEDS ORDERED: HYDROCORTISONE 1% CREAM 30 GM TOP ONE (16:30)
[2018-11-15] MEDS ORDERED: LORATADINE 10 MG TAB PO ONE (16:30)
== END 2018-11-15 16:32 | disposition home or self-care (01) ==
LOC: M ED 14:36
DX: S10.86XA Insect bite of other specified part of neck, initial encounter (principal); L08.9 Local infection of the skin and subcutaneous tissue, unspecified; W57.XXXA Bitten or stung by nonvenomous insect and other nonvenomous arthropods, initial encounter; Y92.098 Other place in other non-institutional residence as the place of occurrence of the external cause; R51 Headache; E78.00 Pure hypercholesterolemia, unspecified; J45.909 Unspecified asthma, uncomplicated; G47.30 Sleep apnea, unspecified; M54.9 Dorsalgia, unspecified; M81.0 Age-related osteoporosis without current pathological fracture; E05.90 Thyrotoxicosis, unspecified without thyrotoxic crisis or storm; F41.9 Anxiety disorder, unspecified; Z79.899 Other long term (current) drug therapy; Z79.82 Long term (current) use of aspirin; Z79.2 Long term (current) use of antibiotics; Z88.0 Allergy status to penicillin; Z88.1 Allergy status to other antibiotic agents; Z88.8 Allergy status to other drugs, medicaments and biological substances

== ENCOUNTER → 2018-12-09 | Outpatient (REF) | payer OTHER ==
[~2018-12-09] MED LIST changes: +CLAR10CA3 PO; +CLIN150C14 PO; +HYDR1CRE30 TOP
[2018-12-09 12:25] LABS: BASO % 0.9 % (0.0-1.0); EOS # 0.3 10^3/uL (0.0-0.50); HEMATOCRIT 37.3 % (36.0-47.0); HEMOGLOBIN 11.8 g/dl (12.0-15.5); LYMPH # 1.3 10^3/uL (1.5-4.5); LYMPH % 29.2 % (24.0-44.0); MEAN CORPUSCULAR HEMOGLOBIN 27.6 pg (27.0-33.0); MEAN CORPUSCULAR HGB CONC 31.6 g/dl (32.0-36.5); MEAN CORPUSCULAR VOLUME 87.1 fl (80.0-96.0); MONO # 0.4 10^3/uL (0.0-0.8); MONO % 10.1 % (0.0-5.0); NEUTROPHILS # 2.3 10^3/uL (1.8-7.7); NEUTROPHILS % 53.6 % (36.0-66.0); PLATELET COUNT, AUTOMATED 248 10^3/uL (150-450); RED BLOOD COUNT 4.28 10^6/uL (4.00-5.40); WHITE BLOOD COUNT 4.4 10^3/uL (4.0-10.0)
[2018-12-09 12:32] LABS: INR 1.03; PROTHROMBIN TIME 13.2 SECONDS (11.8-14.0)
[2018-12-09 12:33] LABS: PARTIAL THROMBOPLASTIN TIME 31.7 SECONDS (25.0-38.4)
[2018-12-09 12:49] LABS: ALBUMIN 3.5 GM/DL (3.2-5.2); ALT/SGPT 20 U/L (12-78); BILIRUBIN,TOTAL 0.3 MG/DL (0.2-1.0); BLOOD UREA NITROGEN 16 MG/DL (7-18); CARBON DIOXIDE LEVEL 31 MEQ/L (21-32); CHLORIDE LEVEL 106 MEQ/L (98-107); CREATININE FOR GFR 0.78 MG/DL (0.55-1.30); FREE T4 0.83 NG/DL (0.76-1.46); GLOMERULAR FILTRATION RATE > 60.0 (>45); GLUCOSE, FASTING 87 MG/DL (70-100); POTASSIUM SERUM 3.9 MEQ/L (3.5-5.1); PTH INTACT 48.8 PG/ML (18.5-88.0); SODIUM LEVEL 141 MEQ/L (136-145); TOTAL 25(OH) VITAMIN D 28.5 NG/ML (30.0-100.0); TOTAL PROTEIN 6.4 GM/DL (6.4-8.2)
== END ==
LOC: M SFHCPLAZ 09:58
PROVIDERS: ATTEND Family Medicine
DX: E05.20 Thyrotoxicosis with toxic multinodular goiter without thyrotoxic crisis or storm (principal); E55.9 Vitamin D deficiency, unspecified

== ENCOUNTER → 2019-01-19 | Outpatient (REF) | payer OTHER | LOC: M SFHCPLAZ 15:47 | PROVIDERS: ATTEND Family Medicine | DX: D23.30 Other benign neoplasm of skin of unspecified part of face (principal) ==

== ENCOUNTER → 2019-03-16 | Outpatient (CLI) | payer OTHER ==
[~2019-03-16] MED LIST changes: +ISOVUE-370 76% 100ML VIAL (Q9967) As Ordered ONE
--- NOTE | 2019-03-17 07:41 | REP ---
CT pulmonary angiogram: With IV contrast. History: Shortness of breath. Comparison studies: Comparison CT angiography March 31, 2018. Contrast dose: 75 mL of Isovue [address] technique: Helical scanning is acquired and overlapping 1.5 mm and contiguous 3 mm axial images are reformatted. In addition, maximum intensity projection and multiplanar re-formation images are generated in sagittal and coronal imaging projections. CT pulmonary angiographic findings: There is good opacification of the pulmonary arterial tree. There is no CT evidence to suggest pulmonary embolus. Thoracic aorta enhances homogeneously. It is normal in coarse and caliber. There is some thoracic aortic tortuosity. Maximal intensity projection images show no vessel cutoff or filling defect in the pulmonary arterial tree. There is some discoid atelectasis in the right lower lobe above the elevated right hemidiaphragm. There are small hepatic cysts noted. A peripherally calcified gallstone is seen in the gallbladder. No adrenal lesion is observed on either side. There is no evidence of hilar or mediastinal mass or adenopathy. No pleural or pericardial effusion is seen. Incidental note is made of multinodular enlargement of the thyroid gland unchanged from comparison study. The right lower lobe parenchymal atelectasis and the hepatic cysts are unchanged. No pulmonary nodule or mass lesion is observed. No bony destructive lesion is seen. The patient is status post right shoulder replacement and cervical spine fusion. Impression: 1. No CT evidence of pulmonary embolus. 2. Elevated right hemidiaphragm and discoid atelectasis again noted right base. 3. Stable hepatic cysts. 4. Stable multinodular goiter. 5. Status post cervical spine fusion and right shoulder arthroplasty. 6. Cholelithiasis. Electronically Signed by Pedro Black MD 03/17/2019 09:36 A
== END ==
LOC: M RAD 15:36
PROVIDERS: ATTEND Nurse Practitioner Family
DX: R06.02 Shortness of breath (principal); K76.89 Other specified diseases of liver; E04.2 Nontoxic multinodular goiter; Z98.1 Arthrodesis status; Z96.611 Presence of right artificial shoulder joint; K80.20 Calculus of gallbladder without cholecystitis without obstruction; J98.11 Atelectasis
CPT/HCPCS: 71275; Q9967

== ENCOUNTER → 2019-03-16 | Outpatient (REF) | payer OTHER ==
[~2019-03-16] MED LIST changes: -ISOVUE-370 76% 100ML VIAL (Q9967) As Ordered ONE; -OMEP40CA2 PO; +OMEP40CA97 PO; -SIMV20TA2 PO; +SIMV20TA22 PO
== END ==
LOC: M SFHCPLAZ 12:05
PROVIDERS: ATTEND Nurse Practitioner Family
DX: R06.02 Shortness of breath (principal)

== ENCOUNTER → 2019-03-16 | Outpatient (CLI) | payer OTHER ==
[~2019-03-16] MED LIST changes: +OMEP40CA2 PO; -OMEP40CA97 PO; +SIMV20TA2 PO; -SIMV20TA22 PO
[2019-03-16 11:42] LABS: BASO % 0.9 % (0.0-1.0); EOS # 0.3 10^3/uL (0.0-0.5); EOS % 6.1 % (0.0-3.0); HEMATOCRIT 38.2 % (36.0-47.0); HEMOGLOBIN 11.7 g/dl (12.0-15.5); LYMPH # 1.6 10^3/uL (1.5-5.0); LYMPH % 35.9 % (24.0-44.0); MEAN CORPUSCULAR HEMOGLOBIN 26.2 pg (27.0-33.0); MEAN CORPUSCULAR HGB CONC 30.6 g/dl (32.0-36.5); MEAN CORPUSCULAR VOLUME 85.7 fl (80.0-96.0); MONO # 0.4 10^3/uL (0.0-0.8); MONO % 8.3 % (0.0-5.0); NEUTROPHILS # 2.2 10^3/uL (1.5-8.5); NEUTROPHILS % 48.6 % (36.0-66.0); PLATELET COUNT, AUTOMATED 260 10^3/uL (150-450); RED BLOOD COUNT 4.46 10^6/uL (4.00-5.40); WHITE BLOOD COUNT 4.5 10^3/uL (4.0-10.0)
--- NOTE | 2019-03-16 17:21 | REP ---
Chest x-ray: Two views. History: Short of breath. Comparison chest x-ray: March 31, 2018. Findings: The patient is status post cervical spine fusion hardware placement and prosthetic right shoulder joint. There is a dextroconvex curve in the thoracic spine unchanged. The lungs are well inflated and clear. Pleural angles are sharp. Heart size is normal. The thoracic aorta somewhat tortuous as before. Pulmonary vasculature is not increased. Impression: No acute disease. Electronically Signed by Pedro Black MD 03/17/2019 09:33 A
== END ==
LOC: M LAB 11:11
PROVIDERS: ATTEND Nurse Practitioner Family
DX: R06.02 Shortness of breath (principal)

== ENCOUNTER → 2019-03-23 | Outpatient (CLI) | payer OTHER ==
--- NOTE | 2019-03-23 09:44 | REP ---
Thyroid ultrasound: The patient has known toxic multinodular goiter. Comparison is 03/20/2018. The thyroid right lobe measures seven point 7.8 x 4.5 x 2.6 cm and is enlarged. The thyroid left lobe measures 5.4-0.3 x 2.2 cm and is enlarged. The isthmus measures 8.8 mm thickness and is enlarged. The lower pole of the thyroid right lobe there is a large solid nodule measuring 4.1 x 2.4 x 4.5 cm. Previously this measured 4.4 x 2.6 x 4.7 cm. The thyroid right lobe upper pole there is a 1.4 centimeter nodule in the mid pole. There is a 1.1 cm nodule. The previously measured 1.7 cm and 2.0 cm. In the thyroid left lobe mid pole medially. There is a 2.2 x 1.1 x 1.5 cm nodule. This previously measured 2.3 x 1.6 x 1.5 cm. In the left lobe at the mid pole. There is a 0.9 cm nodule laterally and there is a 1.4 cm nodule in the lower pole. Previously there was a 1.0 cm nodule at the mid pole and a second 1.0 nodule at the mid pole. On the previous study there were two nodules in the isthmus, one measuring 1.5 cm 1.4 cm. These are not identified today. Impression: Diffusely enlarged thyroid with multiple nodules as described. Electronically Signed by Paresh Zamudio MD 03/23/2019 09:36 A
== END ==
LOC: M RAD 07:19
PROVIDERS: ATTEND Family Medicine
DX: E04.9 Nontoxic goiter, unspecified (principal)

== ENCOUNTER → 2019-04-02 | Outpatient (CLI) | payer OTHER ==
[~2019-04-02] MED LIST changes: -OMEP40CA2 PO; +OMEP40CA97 PO
[2019-04-02 19:09] LABS: BASO # 0.1 10^3/uL (0.0-0.2); BASO % 1.2 % (0.0-1.0); EOS # 0.2 10^3/uL (0.0-0.5); EOS % 4.8 % (0.0-3.0); HEMATOCRIT 39.6 % (36.0-47.0); HEMOGLOBIN 12.2 g/dl (12.0-15.5); LYMPH # 1.2 10^3/uL (1.5-5.0); LYMPH % 28.3 % (24.0-44.0); MEAN CORPUSCULAR HEMOGLOBIN 26.7 pg (27.0-33.0); MEAN CORPUSCULAR HGB CONC 30.8 g/dl (32.0-36.5); MEAN CORPUSCULAR VOLUME 86.7 fl (80.0-96.0); MONO # 0.3 10^3/uL (0.0-0.8); MONO % 7.8 % (0.0-5.0); NEUTROPHILS # 2.4 10^3/uL (1.5-8.5); NEUTROPHILS % 57.7 % (36.0-66.0); PLATELET COUNT, AUTOMATED 270 10^3/uL (150-450); RED BLOOD COUNT 4.57 10^6/uL (4.00-5.40); WHITE BLOOD COUNT 4.2 10^3/uL (4.0-10.0)
[2019-04-02 19:18] LABS: INR 1.12; PROTHROMBIN TIME 14.1 SECONDS (11.8-14.0)
[2019-04-02 19:19] LABS: PARTIAL THROMBOPLASTIN TIME 33.4 SECONDS (25.0-38.4)
[2019-04-02 19:35] LABS: ALBUMIN 3.8 GM/DL (3.2-5.2); ALT/SGPT 23 U/L (12-78); BILIRUBIN,TOTAL 0.4 MG/DL (0.2-1.0); BLOOD UREA NITROGEN 12 MG/DL (7-18); CALCIUM LEVEL 9.5 MG/DL (8.8-10.2); CARBON DIOXIDE LEVEL 33 MEQ/L (21-32); CHLORIDE LEVEL 104 MEQ/L (98-107); CREATININE FOR GFR 0.73 MG/DL (0.55-1.30); GLOMERULAR FILTRATION RATE > 60.0 (>45); GLUCOSE, FASTING 84 MG/DL (70-100); POTASSIUM SERUM 4.1 MEQ/L (3.5-5.1); SODIUM LEVEL 140 MEQ/L (136-145)
== END ==
LOC: M LAB 16:45
PROVIDERS: ATTEND Family Medicine
DX: G47.33 Obstructive sleep apnea (adult) (pediatric) (principal)

== ENCOUNTER → 2019-05-18 | Outpatient (CLI) | payer OTHER ==
[~2019-05-18] MED LIST changes: -SIMV20TA2 PO; +SIMV20TA22 PO
--- NOTE | 2019-05-19 07:57 | REP ---
Clinical: Pelvic pain. Technique: Transabdominal pelvic ultrasound. Findings: Normal anteverted uterus measures 6.3 x 2.5 x 4.1 cm. Endometrial complex measures 5 mm thickness and no obvious uterine or endometrial abnormalities are identified. The bilateral ovaries are normal in appearance. Right ovary measures 2.8 x 1.6 x 1.3 cm. Left ovary measures 2.7 x 1.3 x 1.9 cm. No ascites or adnexal mass. Impression: Relatively normal transabdominal pelvic ultrasound. Electronically Signed by Josue Brooks MD 05/19/2019 07:49 A
== END ==
LOC: M RAD 16:39
PROVIDERS: ATTEND Nurse Practitioner Family
DX: R10.2 Pelvic and perineal pain (principal)

== ENCOUNTER → 2019-05-28 | Outpatient (CLI) | payer OTHER ==
[2019-05-28 13:38] LABS: BLOOD UREA NITROGEN 13 MG/DL (7-18); CALCIUM LEVEL 9.1 MG/DL (8.8-10.2); CARBON DIOXIDE LEVEL 30 MEQ/L (21-32); CHLORIDE LEVEL 106 MEQ/L (98-107); CREATININE FOR GFR 0.76 MG/DL (0.55-1.30); GLOMERULAR FILTRATION RATE > 60.0 (>45); GLUCOSE, FASTING 86 MG/DL (70-100); POTASSIUM SERUM 4.2 MEQ/L (3.5-5.1); SODIUM LEVEL 142 MEQ/L (136-145)
[2019-05-28 13:39] LABS: BASO % 0.8 % (0.0-1.0); EOS # 0.1 10^3/uL (0.0-0.5); EOS % 3.4 % (0.0-3.0); HEMATOCRIT 39.9 % (36.0-47.0); LYMPH # 1.1 10^3/uL (1.5-5.0); LYMPH % 29.7 % (24.0-44.0); MEAN CORPUSCULAR HEMOGLOBIN 25.5 pg (27.0-33.0); MEAN CORPUSCULAR HGB CONC 30.1 g/dl (32.0-36.5); MEAN CORPUSCULAR VOLUME 84.9 fl (80.0-96.0); MONO # 0.3 10^3/uL (0.0-0.8); NEUTROPHILS % 56.8 % (36.0-66.0); PLATELET COUNT, AUTOMATED 292 10^3/uL (150-450); WHITE BLOOD COUNT 3.5 10^3/uL (4.0-10.0)
[2019-05-28 13:47] LABS: ALBUMIN 3.6 GM/DL (3.2-5.2); ALT/SGPT 22 U/L (12-78); BILIRUBIN,TOTAL 0.4 MG/DL (0.2-1.0); BLOOD UREA NITROGEN 12 MG/DL (7-18); CALCIUM LEVEL 8.9 MG/DL (8.8-10.2); CARBON DIOXIDE LEVEL 31 MEQ/L (21-32); CHLORIDE LEVEL 106 MEQ/L (98-107); CREATININE FOR GFR 0.72 MG/DL (0.55-1.30); FREE T4 0.87 NG/DL (0.76-1.46); GLOMERULAR FILTRATION RATE > 60.0 (>45); GLUCOSE, FASTING 82 MG/DL (70-100); POTASSIUM SERUM 4.3 MEQ/L (3.5-5.1); SODIUM LEVEL 141 MEQ/L (136-145); THYROID STIMULATING HORMONE 0.026 uIU/ML (0.358-3.740); TOTAL PROTEIN 6.7 GM/DL (6.4-8.2)
[2019-05-28 13:48] LABS: VITAMIN B12 LEVEL 747 PG/ML (247-911)
[2019-05-28 14:18] LABS: HEMOGLOBIN A1c 5.9 %
== END ==
LOC: M PLALAB 11:17
PROVIDERS: ATTEND Family Medicine
DX: R73.01 Impaired fasting glucose (principal); E05.20 Thyrotoxicosis with toxic multinodular goiter without thyrotoxic crisis or storm; E53.8 Deficiency of other specified B group vitamins; R06.02 Shortness of breath

== ENCOUNTER → 2019-05-29 | Outpatient (CLI) | payer OTHER ==
--- NOTE | 2019-05-29 09:40 | REP ---
Duplex extremity venous ultrasound: Right lower extremity. History: Thrombophlebitis of the superficial veins of the right lower extremity. Findings: The deep veins are anechoic and fully compressible from the groin to the popliteal fossa in the right lower extremity. Color flow imaging is homogeneous. Spectral Doppler interrogation demonstrates intact respiratory variation in flow and normal manual augmentation of flow. There is no evidence of deep vein thrombosis. Impression: Negative right lower extremity duplex venous ultrasound. No evidence of deep vein thrombosis. Electronically Signed by Pedro Black MD 05/29/2019 09:32 A
== END ==
LOC: M RAD 08:34
PROVIDERS: ATTEND Family Medicine
DX: I80.01 Phlebitis and thrombophlebitis of superficial vessels of right lower extremity (principal)

== ENCOUNTER → 2019-08-04 | Outpatient (CLI) | payer OTHER ==
--- NOTE | 2019-08-04 17:40 | REP ---
Bilateral lower extremity duplex venous ultrasound: Reflux exam. History: Venous insufficiency bilateral lower extremities. Findings: The deep veins are anechoic and fully compressible on two-dimensional scanning from the groin to the popliteal fossa in each lower extremity. Color flow and spectral Doppler interrogation are performed and show no evidence of deep vein thrombosis. Reflux findings: In the right lower extremity, there is 0.8-second duration reflux in the greater saphenous vein at mid thigh where the vein measures 4.7 mm in AP dimension. Reflux lasting 8.9 seconds in duration is seen in a 5 mm greater saphenous vein at the knee level. No other deep or superficial system reflux is observed on the right. The greater saphenous vein measures 7.8 mm proximally at the saphenofemoral junction. The lesser saphenous vein measures 1.7 mm. In the left lower extremity, there is no evidence of reflux in the deep or superficial system. Greater saphenous vein diameters are 7 mm, 4.1 mm, and 4.4 mm respectively at the proximal, mid thigh, and knee level. Lesser saphenous vein measures 2.2 mm. Impression: Minimal reflux in the greater saphenous vein on the right and mid and distal level with the bed tipped. No other reflux noted. No evidence of DVT. Electronically Signed by Pedro Black MD 08/05/2019 07:46 A
== END ==
LOC: M RAD 11:18
PROVIDERS: ATTEND Family Medicine
DX: I87.2 Venous insufficiency (chronic) (peripheral) (principal)

== ENCOUNTER 2019-08-11 17:36 | Emergency (ER) | payer OTHER ==
[~2019-08-11] VITALS: Ht 170.2 cm; Wt 112.0 kg
[2019-08-11] MEDS ORDERED: HYDR-643 PO (19:50)
[2019-08-11 21:18] LABS: BASO # 0.1 10^3/uL (0.0-0.2); EOS # 0.2 10^3/uL (0.0-0.5); EOS % 3.3 % (0.0-3.0); HEMATOCRIT 40.9 % (36.0-47.0); HEMOGLOBIN 12.8 g/dl (12.0-15.5); LYMPH # 1.6 10^3/uL (1.5-5.0); LYMPH % 25.8 % (24.0-44.0); MEAN CORPUSCULAR HEMOGLOBIN 25.8 pg (27.0-33.0); MEAN CORPUSCULAR HGB CONC 31.3 g/dl (32.0-36.5); MEAN CORPUSCULAR VOLUME 82.5 fl (80.0-96.0); MONO # 0.4 10^3/uL (0.0-0.8); MONO % 6.4 % (0.0-5.0); NEUTROPHILS # 3.8 10^3/uL (1.5-8.5); NEUTROPHILS % 63.3 % (36.0-66.0); PLATELET COUNT, AUTOMATED 299 10^3/uL (150-450); RED BLOOD COUNT 4.96 10^6/uL (4.00-5.40); WHITE BLOOD COUNT 6.1 10^3/uL (4.0-10.0)
[2019-08-11 21:48] LABS: CK-MB VALUE MASS 5.8 NG/ML (<3.6); CPK CREATINE PHOSPHOKINASE 356 U/L (26-192); MB/CK RELATIVE INDEX 1.63 (< OR =4); NT-PRO BNP 29 PG/ML (<125); TROPONIN I < 0.02 NG/ML (< 0.10)
--- NOTE | 2019-08-11 22:12 | REPVR ---
PROCEDURE INFORMATION: Exam: US Duplex Left Lower Extremity Veins, Limited Exam date and time: 08/11/19 (9:25pm) Age: 64 years old Clinical indication: Left ankle pain and swelling TECHNIQUE: Imaging protocol: Real-time Duplex ultrasound of the Left Lower Extremity with 2-D esparza scale, color Doppler flow and spectral waveform analysis with image documentation. Limited exam focused on the left lower extremity veins. COMPARISON: US Duplex, Ext Lower Veins, bilat of 08/04/19 FINDINGS: Left deep veins: Unremarkable. The common femoral, femoral, proximal profunda femoral and popliteal veins are patent without thrombus. Normal Doppler waveforms. Normal compressibility and/or augmentation response. Left superficial veins: Unremarkable. Saphenofemoral junction is patent without thrombus. Soft tissues: Unremarkable. IMPRESSION: No acute findings. No evidence of deep vein thrombosis. Electronically signed by: Domenica Power On 08/11/2019 22:12:17 PM
--- NOTE | 2019-08-11 22:28 | REPVR ---
PROCEDURE INFORMATION: Exam: US Pelvis Limited, Transabdominal Exam date and time: 08/11/19 (9:35pm) Age: 64 years old Clinical indication: Pelvic pain. Suprapubic and LLQ pain. TECHNIQUE: Imaging protocol: Real-time transabdominal pelvic ultrasound with image documentation. Limited examination. Patient refused a complete pelvic sonogram. COMPARISON: US PELVIS of 05/18/19 FINDINGS: No abnormal fluid collection. Indeterminate ovoid soft tissue mass (3.0 x 1.4 x 1.8 cm size) in the LLQ area. IMPRESSION: No acute findings. No abnormal fluid collections. Indeterminate ovoid soft tissue mass (3.0 x 1.4 x 1.8 cm size) in the LLQ area -- perhaps a prominent lymph node, eg. A CT scan can be obtained for further evaluation, as felt warranted. Electronically signed by: Domenica Power On 08/11/2019 22:27:43 PM
--- NOTE | 2019-08-12 01:27 | REPVR ---
PROCEDURE INFORMATION: Exam: US Pelvis Complete, Transabdominal and transvaginal Exam date and time: 08/12/2019 12:41 AM Age: 64 years old Clinical indication: Pelvic pain; Additional info: Suprapubic pain TECHNIQUE: Imaging protocol: Real-time transabdominal pelvic ultrasound with image documentation. Complete exam. COMPARISON: Pelvis, limited US 08/11/2019 9:33 PM FINDINGS: Uterus/cervix: Uterus is normal measuring 4.4 x 1.9 x 3.5 cm. Endometrial stripe is normal measuring 3 mm. Right adnexa: Not seen. Left adnexa: Ovary is normal measuring 1.6 x 1.4 x 1.0 cm. No mass. Normal blood flow. Free fluid: None. Bladder: Normal measuring 3.7 x 5.1 x 7.7 cm. IMPRESSION: Right ovary is not seen on transvaginal and transabdominal ultrasound. Uterus and left ovary are unremarkable. No free fluid. Electronically signed by: Gail Fernandez On 08/12/2019 01:27:03 AM
[2019-08-12 01:36] VITALS: BP 139/79
--- NOTE | 2019-08-12 08:10 | REP ---
PA and lateral chest: Comparison is 03/16/2019. The lung polk are clear. The cardiac size is normal. The dario, mediastinum, and skeletal structures are unremarkable except for a cervical spine stabilization rods and stabilization plate as well as right shoulder arthroplasty. These findings are unchanged. Impression: Negative PA and lateral chest. No interval change. Electronically Signed by Paresh Zamudio MD 08/12/2019 08:01 A
--- NOTE | 2019-08-12 08:14 | ECGEPIP ---
[facility] - ED Test Date: 2019-08-11 Pat Name: LO CARROLL Department: Room: - Gender: Female [employer]: LETICIA : [id number] Requested By: MELINDA Sandra PA-C Order Number: [id number] Reading MD: Yeison St Measurements Intervals [place] Rate: 94 P: 42 TX: 178 QRS: 23 QRSD: 91 T: 45 QT: 359 QTc: 451 Interpretive Statements SINUS RHYTHM BASELINE ARTIFACT AFFECTS INTERPRETATION SIMILAR TO 03/31/18 Electronically Signed on 08-12-2019 8:14:[address]
== END 2019-08-12 01:40 | disposition home or self-care (01) ==
LOC: M ED 17:36
DX: R10.2 Pelvic and perineal pain (principal); M79.672 Pain in left foot; R22.42 Localized swelling, mass and lump, left lower limb; R06.02 Shortness of breath; E05.90 Thyrotoxicosis, unspecified without thyrotoxic crisis or storm; Z79.899 Other long term (current) drug therapy; Z79.82 Long term (current) use of aspirin; Z88.0 Allergy status to penicillin; Z88.1 Allergy status to other antibiotic agents; Z88.5 Allergy status to narcotic agent

== ENCOUNTER → 2019-08-28 | Outpatient (CLI) | payer OTHER ==
[~2019-08-28] MED LIST changes: +HYDR-643 PO
--- NOTE | 2019-08-28 17:11 | REP ---
CT of the abdomen pelvis without IV or bowel contrast: The patient states neuropathic pain. . The patient related to the cath lab radiological technologist that her pain is predominantly in the pelvis. The visualized lower lung polk demonstrate discoid atelectasis in the right lower lobe is unremarkable. The unenhanced hepatic parenchyma demonstrates several small round hypodense lesions compatible with hepatic cysts. The patient had an hepatic cyst. On the prior study. Additionally, on the prior study and the patient had a small hepatic hemangiomas. These are isointense with liver on the current study without IV contrast except that I believe one hemangioma appears as a subtle hypodensity anteriorly in the liver on image 27. The remainder of the hepatic parenchyma is unremarkable for a none enhanced study. There is a gallbladder calculus with rim calcification in the gallbladder fundus. This was also present previously and measures 17 mm and has not significantly changed in size. There is no gallbladder wall thickening or pericholecystic fluid. The pancreas and spleen are normal size and unremarkable. The adrenals are unremarkable. The unenhanced kidneys are unremarkable. There is no pararenal stranding. The abdominal aorta is unremarkable. There is no retroperitoneal or periaortic adenopathy or mass. There is no bowel distension or wall thickening. The bowel is otherwise unremarkable. The mesentery is unremarkable. Pelvis: There is an appendicolith in the distal tip of the appendix, however, the appendix is not distended and there is no appendiceal inflammation or abscess. The uterus and adnexa are unremarkable except for phleboliths. The bladder is unremarkable. There is no pelvic adenopathy or ascites. The pelvic bowel loops are unremarkable. There is lumbar scoliosis convex left. There is advanced degenerative disc disease in the lumbar spine at L to through S1. There is facet osteoarthritis throughout the lumbar spine. I suspect there is focal spinal stenosis at L2-3. This may be partially from the scoliosis and from the facet hypertrophy from the osteoarthritis. MRI follow-up might be worthwhile for further evaluation. Impression: Essentially negative CT study of the abdomen pelvis except for hepatic cysts. The patient also has known hepatic hemangiomas identified on a prior study with IV contrast. There is an appendicolith at the appendix tip, the appendix is otherwise unremarkable. There is lumbar scoliosis and multilevel advanced degenerative disc disease facet osteoarthritis in the lumbar spine. I suspect there is focal spinal stenosis at L2-3 that may be a consequence of the scoliosis and facet hypertrophy. Depending on symptomatology MRI follow-up might be worthwhile for further evaluation. Electronically Signed by Paresh Zamudio MD 08/28/2019 05:02 P
== END ==
LOC: M RAD 14:46
PROVIDERS: ATTEND Physician Assistant Medical
DX: M41.86 Other forms of scoliosis, lumbar region (principal); M51.36 Other intervertebral disc degeneration, lumbar region; M79.2 Neuralgia and neuritis, unspecified

== ENCOUNTER → 2019-09-14 | Outpatient (CLI) | payer OTHER ==
--- NOTE | 2019-09-14 15:04 | REP ---
MRI LEFT FOOT: MRI left foot performed utilizing sagittal, coronal, and axial imaging sequences. There is arthritic change at the talocalcaneal joint with moderate subcortical marrow edema and cystic change on both sides of the joint. There is dorsal navicular spurring. There is degenerative change at the joint between the navicular and medial cuneiform bone with mild subchondral marrow edema on both sides of that joint. There is also mild arthritic change at the calcaneal cuboid joint with mild subchondral marrow edema on both sides of the joint. Tendons and ligaments at the ankle appear intact. The flexor and extensor tendons of the foot appear intact without significant tenosynovitis. There is a moderate degree of diffuse soft tissue edema in the dorsum of the foot. No significant joint effusion is seen. No ganglion cyst is seen. Plantar fascia is unremarkable. Plantar tendon is intact. IMPRESSION: Moderate arthritic changes at the talocalcaneal joint as discussed above. Mild arthritic changes at the joint between the navicular and medial cuneiform and also at the calcaneal cuboid joint. Moderate dorsal soft tissue edema. Electronically Signed by Paresh Stephenson MD 09/14/2019 03:21 P
== END ==
LOC: M RAD 12:34
PROVIDERS: ATTEND Physician Assistant
DX: M13.872 Other specified arthritis, left ankle and foot (principal)

== ENCOUNTER → 2019-09-21 | Outpatient (REF) | payer OTHER ==
[2019-09-21 17:52] LABS: BASO % 0.8 % (0.0-1.0); EOS # 0.2 10^3/uL (0.0-0.5); EOS % 4.5 % (0.0-3.0); HEMOGLOBIN 12.2 g/dl (12.0-15.5); LYMPH # 0.8 10^3/uL (1.5-5.0); LYMPH % 20.7 % (24.0-44.0); MEAN CORPUSCULAR HEMOGLOBIN 26.4 pg (27.0-33.0); MEAN CORPUSCULAR HGB CONC 31.3 g/dl (32.0-36.5); MEAN CORPUSCULAR VOLUME 84.4 fl (80.0-96.0); MONO # 0.3 10^3/uL (0.0-0.8); MONO % 7.7 % (0.0-5.0); NEUTROPHILS # 2.5 10^3/uL (1.5-8.5); PLATELET COUNT, AUTOMATED 267 10^3/uL (150-450); RED BLOOD COUNT 4.62 10^6/uL (4.00-5.40); WHITE BLOOD COUNT 3.8 10^3/uL (4.0-10.0)
[2019-09-21 18:00] LABS: APPEARANCE, URINE CLEAR (CLEAR); BACTERIA, URINE AUTO NEGATIVE (NEGATIVE); BILIRUBIN, URINE AUTO NEGATIVE (NEGATIVE); BLOOD, URINE BLOOD NEGATIVE (NEGATIVE); COLOR, URINE YELLOW (YELLOW); GLUCOSE, URINE (UA) AUTO NEGATIVE (NEGATIVE); KETONE, URINE AUTO NEGATIVE (NEGATIVE); LEUKOCYTE ESTERASE, URINE AUTO NEGATIVE (NEGATIVE); MUCUS, URINE SMALL (NEGATIVE); NITRITE, URINE AUTO NEGATIVE (NEGATIVE); PROTEIN, URINE AUTO NEGATIVE (NEGATIVE); RBC, URINE AUTO 0 /HPF (0-3); SPECIFIC GRAVITY URINE AUTO 1.014 (1.002-1.035); SQUAMOUS EPITHELIAL CELL UR AU 0 /HPF (0-6); UROBILINOGEN, URINE AUTO 0.2 mg/dL (0.0-2.0); WBC, URINE AUTO 0 /HPF (0-3)
[2019-09-21 18:11] LABS: HEMOGLOBIN A1c 6.2 %
[2019-09-21 18:31] LABS: CREATININE, URINE 72.8 MG/DL; MALB URINE SIEMENS < 5.0 MG/L; MAU/CREAT RATIO 6.8 MCG/MG (0.0-30.0)
[2019-09-21 18:32] LABS: ALBUMIN 3.6 GM/DL (3.2-5.2); ALT/SGPT 19 U/L (12-78); BILIRUBIN,TOTAL 0.4 MG/DL (0.2-1.0); BLOOD UREA NITROGEN 12 MG/DL (7-18); CALCIUM LEVEL 9.1 MG/DL (8.8-10.2); CARBON DIOXIDE LEVEL 29 MEQ/L (21-32); CHLORIDE LEVEL 106 MEQ/L (98-107); CREATININE FOR GFR 0.75 MG/DL (0.55-1.30); FREE T4 0.77 NG/DL (0.76-1.46); GLOMERULAR FILTRATION RATE > 60.0 (>45); GLUCOSE, FASTING 72 MG/DL (70-100); POTASSIUM SERUM 3.9 MEQ/L (3.5-5.1); SODIUM LEVEL 139 MEQ/L (136-145); THYROID STIMULATING HORMONE 0.036 uIU/ML (0.358-3.740); TOTAL PROTEIN 6.6 GM/DL (6.4-8.2)
== END ==
LOC: M SFHCPLAZ 13:46
PROVIDERS: ATTEND Physician Assistant Medical
DX: E78.2 Mixed hyperlipidemia (principal); E05.20 Thyrotoxicosis with toxic multinodular goiter without thyrotoxic crisis or storm; R73.01 Impaired fasting glucose

== ENCOUNTER 2019-10-06 16:58 | Emergency (ER) | payer OTHER ==
[~2019-10-06] VITALS: Ht 170.2 cm; Wt 110.2 kg
[~2019-10-06 16:58] MED LIST changes: +CYCL-707 PO; -CYCL10TA PO
[2019-10-06] MEDS ORDERED: METH1TAB40 (17:05)
[2019-10-06] MEDS ORDERED: METH25TAB (17:05)
[2019-10-06] MEDS ORDERED: GI COCKTAIL 50ML BTL(HYOSCYAMINE/MAALOX/LIDOCAINE VISCOUS)(1:3:1) PO ONE (17:30)
--- NOTE | 2019-10-06 17:57 | REP ---
TWO-VIEW CHEST: REASON: Abdominal pain. COMPARISON: Multiple, the latest 08/11/2019. FINDINGS: The superior mediastinal structures are midline. The cardiac silhouette is unremarkable in size, shape, and position. The diaphragmatic surfaces of the lungs are regular, and the costophrenic angles are clear. The pulmonary polk are clear. The imaged osseous structures are intact. IMPRESSION: There is no acute cardiopulmonary disease. No significant change from the prior exam. Electronically Signed by Geremias Corrigan DO 10/06/2019 06:20 P
[2019-10-06 18:05] LABS: BASO # 0.1 10^3/uL (0.0-0.2); BASO % 1.1 % (0.0-1.0); EOS # 0.3 10^3/uL (0.0-0.5); EOS % 5.7 % (0.0-3.0); HEMATOCRIT 41.4 % (36.0-47.0); LYMPH # 1.1 10^3/uL (1.5-5.0); LYMPH % 24.2 % (24.0-44.0); MEAN CORPUSCULAR HEMOGLOBIN 26.3 pg (27.0-33.0); MEAN CORPUSCULAR HGB CONC 31.4 g/dl (32.0-36.5); MEAN CORPUSCULAR VOLUME 83.8 fl (80.0-96.0); MONO # 0.4 10^3/uL (0.0-0.8); MONO % 8.3 % (0.0-5.0); NEUTROPHILS # 2.9 10^3/uL (1.5-8.5); NEUTROPHILS % 60.5 % (36.0-66.0); PLATELET COUNT, AUTOMATED 285 10^3/uL (150-450); RED BLOOD COUNT 4.94 10^6/uL (4.00-5.40); WHITE BLOOD COUNT 4.7 10^3/uL (4.0-10.0)
[2019-10-06 18:18] LABS: INR 1.13; PARTIAL THROMBOPLASTIN TIME 32.5 SECONDS (25.0-38.4); PROTHROMBIN TIME 14.2 SECONDS (11.8-14.0)
[2019-10-06 18:28] LABS: ALBUMIN 3.7 GM/DL (3.2-5.2); ALT/SGPT 19 U/L (12-78); BILIRUBIN,DIRECT 0.1 MG/DL (0.0-0.2); BILIRUBIN,TOTAL 0.3 MG/DL (0.2-1.0); CK-MB VALUE MASS 2.9 NG/ML (<3.6); CPK CREATINE PHOSPHOKINASE 139 U/L (26-192); LIPASE 168 U/L (73-393); MB/CK RELATIVE INDEX 2.09 (< OR =4); TOTAL PROTEIN 7.1 GM/DL (6.4-8.2); TROPONIN I < 0.02 NG/ML (< 0.10)
[2019-10-06] MEDS ORDERED: ISOVUE-370 76% 100ML VIAL As Ordered ONE (19:58)
--- NOTE | 2019-10-06 20:24 | REPVR ---
PROCEDURE INFORMATION: Exam: CT Angiography Chest With Contrast Exam date and time: 10/06/2019 8:09 PM Age: 64 years old Clinical indication: Chest pain; Additional info: Upper abd/chest/back pain TECHNIQUE: Imaging protocol: Computed tomographic angiography of the chest with intravenous contrast. 3D rendering: MIP and/or 3D reconstructed images were created by the technologist. Radiation optimization: All CT scans at this facility use at least one of these dose optimization techniques: automated exposure control; mA and/or kV adjustment per patient size (includes targeted exams where dose is matched to clinical indication); or iterative reconstruction. Contrast material: ISO 370; Contrast volume: 100 ml; Contrast route: IV; COMPARISON: CT ANGIO CHEST 03/16/2019 3:54 PM FINDINGS: Pulmonary arteries: Normal. No pulmonary emboli. Aorta: Unremarkable. No aortic aneurysm. No aortic dissection. Lungs: Compressive atelectasis at the right lung base. Noncalcified subpleural pulmonary parenchymal nodule measures 4.5 mm located in the posterior superior segment of the left lower lobe. Finding likely postinflammatory. Pleural space: Unremarkable. No pneumothorax. No pleural effusion. Heart: There is mild atherosclerotic calcification of the coronary arteries. Diaphragm: Elevated right hemidiaphragm secondary to a large hemidiaphragmatic eventration. Lymph nodes: Unremarkable. No enlarged lymph nodes. Bones/joints: Status post right shoulder arthroplasty. Status post posterior interbody fusion lower cervical spine. The spine demonstrates mild degenerative changes. Dextroscoliosis. Soft tissues: Unremarkable. IMPRESSION: 1. Noncalcified subpleural pulmonary parenchymal nodule measures 4.5 mm located in the posterior superior segment of the left lower lobe. Finding likely postinflammatory. For patients at low risk (minimal or absent history of smoking and of other known risk factors), no routine follow-up is indicated. For patients at high risk (history of smoking or of other known risk factors), consider optional CT at 12 months. (Lexi et al., Fleischner Society, 2017) 2. No acute findings. Electronically signed by: Dayo Matute On 10/06/2019 20:24:04 PM
--- NOTE | 2019-10-06 20:29 | REPVR ---
PROCEDURE INFORMATION: Exam: CT Abdomen And Pelvis With Contrast Exam date and time: 10/06/2019 8:09 PM Age: 64 years old Clinical indication: Abdominal pain; Additional info: Upper abd/chest/back pain TECHNIQUE: Imaging protocol: Computed tomography of the abdomen and pelvis with intravenous contrast. Radiation optimization: All CT scans at this facility use at least one of these dose optimization techniques: automated exposure control; mA and/or kV adjustment per patient size (includes targeted exams where dose is matched to clinical indication); or iterative reconstruction. Contrast material: ISO 370; Contrast volume: 100 ml; Contrast route: IV; COMPARISON: CT ABD PELVIS W/O CONTRAST 08/28/2019 3:16 PM FINDINGS: Liver: There is a diffuse decrease in hepatic parenchymal density, consistent with steatosis. Scattered cysts in the liver measure up to 1.6 cm in the posterior right lobe. Vascular malformation demonstrated in the anterior hepatic lobe. Gallbladder and bile ducts: There are gallstones present. No evidence of cholecystitis demonstrated. Pancreas: Normal. No ductal dilation. Spleen: Normal. No splenomegaly. Adrenals: Normal. No mass. Kidneys and ureters: Normal. No hydronephrosis. Stomach and bowel: There is increased feces throughout the colon consistent with constipation. Appendix: No evidence of appendicitis. Intraperitoneal space: Unremarkable. No free air. No significant fluid collection. Vasculature: Unremarkable. No abdominal aortic aneurysm. Lymph nodes: Unremarkable. No enlarged lymph nodes. Bladder: Unremarkable as visualized. Reproductive: Unremarkable as visualized. Bones/joints: Moderate degenerative spondylosis.There are multilevel spinal stenoses from the lower thoracic spine through the lumbar spine disc levels most severe at L2-L3, L3-L4, and L4-L5. Soft tissues: Unremarkable. Other findings: Levoscoliosis. IMPRESSION: 1. Moderate degenerative spondylosis.There are multilevel spinal stenoses from the lower thoracic spine through the lumbar spine disc levels most severe at L2-L3, L3-L4, and L4-L5. 2. There is a diffuse decrease in hepatic parenchymal density, consistent with steatosis. 3. There are gallstones present. No evidence of cholecystitis demonstrated. 4. There is increased feces throughout the colon consistent with constipation. Electronically signed by: Dayo Matute On 10/06/2019 20:29:23 PM
[2019-10-06 21:00] VITALS: BP 140/95
--- NOTE | 2019-10-07 03:47 | ECGEPIP ---
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
--- NOTE | 2019-10-07 09:31 | ED PDOC ---
Post-Departure Follow-Up dr chi faxed formal report of ct chest/abd/p for fu Caesar Wilburn MD Oct 07, 2019 09:31
== END 2019-10-06 21:12 | disposition home or self-care (01) ==
LOC: M ED 16:58
DX: K21.9 Gastro-esophageal reflux disease without esophagitis (principal); G89.29 Other chronic pain; M54.5 Low back pain; R91.1 Solitary pulmonary nodule; R00.0 Tachycardia, unspecified; M47.816 Spondylosis without myelopathy or radiculopathy, lumbar region; K80.20 Calculus of gallbladder without cholecystitis without obstruction; K59.00 Constipation, unspecified; E78.5 Hyperlipidemia, unspecified; J45.909 Unspecified asthma, uncomplicated; G47.33 Obstructive sleep apnea (adult) (pediatric); E05.90 Thyrotoxicosis, unspecified without thyrotoxic crisis or storm; F41.9 Anxiety disorder, unspecified; Z88.0 Allergy status to penicillin; Z88.5 Allergy status to narcotic agent; Z88.8 Allergy status to other drugs, medicaments and biological substances; Z79.51 Long term (current) use of inhaled steroids; Z79.899 Other long term (current) drug therapy
CPT/HCPCS: 36415; 71046; 71275; 74177; 80047; 80076; 81001; 82550; 82553; 83690; 85025; 85610; 85730; 93005; 99284; Q9967

== ENCOUNTER → 2019-11-09 | Outpatient (CLI) | payer OTHER ==
[~2019-11-09] MED LIST changes: +METH1TAB40; +METH25TAB
[2019-11-09 11:18] LABS: BASO % 0.6 % (0.0-1.0); EOS # 0.2 10^3/uL (0.0-0.5); HEMATOCRIT 40.8 % (36.0-47.0); HEMOGLOBIN 12.9 g/dl (12.0-15.5); LYMPH # 1.2 10^3/uL (1.5-5.0); LYMPH % 24.8 % (24.0-44.0); MEAN CORPUSCULAR HGB CONC 31.6 g/dl (32.0-36.5); MEAN CORPUSCULAR VOLUME 85.4 fl (80.0-96.0); MONO # 0.5 10^3/uL (0.0-0.8); MONO % 9.6 % (0.0-5.0); NEUTROPHILS # 2.9 10^3/uL (1.5-8.5); NEUTROPHILS % 59.8 % (36.0-66.0); PLATELET COUNT, AUTOMATED 272 10^3/uL (150-450); RED BLOOD COUNT 4.78 10^6/uL (4.00-5.40); WHITE BLOOD COUNT 4.8 10^3/uL (4.0-10.0)
[2019-11-09 11:33] LABS: APPEARANCE, URINE CLEAR (CLEAR); BACTERIA, URINE AUTO 1+ (NEGATIVE); BILIRUBIN, URINE AUTO NEGATIVE (NEGATIVE); BLOOD, URINE BLOOD NEGATIVE (NEGATIVE); COLOR, URINE YELLOW (YELLOW); GLUCOSE, URINE (UA) AUTO NEGATIVE (NEGATIVE); KETONE, URINE AUTO NEGATIVE (NEGATIVE); LEUKOCYTE ESTERASE, URINE AUTO 3+ (NEGATIVE); MUCUS, URINE SMALL (NEGATIVE); NITRITE, URINE AUTO NEGATIVE (NEGATIVE); PROTEIN, URINE AUTO NEGATIVE (NEGATIVE); RBC, URINE AUTO 2 /HPF (0-3); SPECIFIC GRAVITY URINE AUTO 1.024 (1.002-1.035); SQUAMOUS EPITHELIAL CELL UR AU 8 /HPF (0-6); TRANSITIONAL EPITHELIAL AUTO 1 /HPF; UROBILINOGEN, URINE AUTO 0.2 mg/dL (0.0-2.0); WBC, URINE AUTO 34 /HPF (0-3)
[2019-11-09 11:56] LABS: ALBUMIN 3.6 GM/DL (3.2-5.2); ALT/SGPT 25 U/L (12-78); BILIRUBIN,TOTAL 0.4 MG/DL (0.2-1.0); BLOOD UREA NITROGEN 21 MG/DL (7-18); CALCIUM LEVEL 9.1 MG/DL (8.8-10.2); CARBON DIOXIDE LEVEL 30 MEQ/L (21-32); CHLORIDE LEVEL 105 MEQ/L (98-107); CREATININE FOR GFR 0.84 MG/DL (0.55-1.30); FREE T4 0.96 NG/DL (0.76-1.46); GLOMERULAR FILTRATION RATE > 60.0 (>45); GLUCOSE, FASTING 85 MG/DL (70-100); POTASSIUM SERUM 4.1 MEQ/L (3.5-5.1); SODIUM LEVEL 143 MEQ/L (136-145); THYROID STIMULATING HORMONE 0.019 uIU/ML (0.358-3.740); TOTAL PROTEIN 6.7 GM/DL (6.4-8.2)
[2019-11-09 11:56] LABS: MALB URINE SIEMENS 17.5 MG/L; MAU/CREAT RATIO 8.5 MCG/MG (0.0-30.0)
[2019-11-09 13:16] LABS: HEMOGLOBIN A1c 6.3 %
== END ==
LOC: M LAB 10:40
PROVIDERS: ATTEND Family Medicine
DX: E78.2 Mixed hyperlipidemia (principal); E05.20 Thyrotoxicosis with toxic multinodular goiter without thyrotoxic crisis or storm; R73.01 Impaired fasting glucose

== ENCOUNTER 2019-12-25 11:51 | Emergency (ER) | payer OTHER ==
[~2019-12-25] VITALS: Ht 170.2 cm; Wt 104.4 kg
[~2019-12-25 11:51] MED LIST changes: -LACT10SO29 PO; +LACT20EL PO; -METH1TAB40; +METH1TAB40 PO
[2019-12-25] MEDS ORDERED: IBUP-1022 PO (12:03)
--- NOTE | 2019-12-25 13:52 | REP ---
RIGHT SHOULDER THREE VIEWS: Three views of the right shoulder are performed. No acute fracture or dislocation is seen. There is a metallic prosthesis of the right shoulder which appears to be in good position. There is spurring of the distal end of the clavicle. There is a metallic mara along the cervical spine with metallic screws, full extent is not visualized. IMPRESSION: No acute fracture or dislocation. Electronically Signed by Paresh Stephenson MD 12/27/2019 11:14 P
--- NOTE | 2019-12-25 13:53 | REP ---
RIGHT HIP, TWO VIEWS: There is no evidence of an acute fracture, dislocation or intrinsic bone disease. IMPRESSION: No fracture or dislocation. Electronically Signed by Paresh Stephenson MD 12/27/2019 11:18 P
[2019-12-25 14:59] VITALS: BP 131/76
[2019-12-25] MEDS ORDERED: KETOROLAC 60MG 2ML VIAL IM ONE (15:00)
== END 2019-12-25 15:01 | disposition home or self-care (01) ==
LOC: M ED 11:51
DX: S70.01XA Contusion of right hip, initial encounter (principal); S46.911A Strain of unspecified muscle, fascia and tendon at shoulder and upper arm level, right arm, initial encounter; W19.XXXA Unspecified fall, initial encounter; X50.9XXA Other and unspecified overexertion or strenuous movements or postures, initial encounter; Z79.51 Long term (current) use of inhaled steroids; Z79.82 Long term (current) use of aspirin; Z79.899 Other long term (current) drug therapy; Z88.0 Allergy status to penicillin; Z88.1 Allergy status to other antibiotic agents; Z88.6 Allergy status to analgesic agent; Z88.8 Allergy status to other drugs, medicaments and biological substances
CPT/HCPCS: 73030; 73502; 96372; 99283; J1885

== ENCOUNTER → 2020-01-15 | Emergency (ER) | payer OTHER ==
[~2020-01-15] MED LIST changes: +BACTRIM 160MG/800MG DS TAB As Ordered ONE; +BACTRIM 160MG/800MG DS TAB ONE; +IBUP-1022 PO
== END | disposition home or self-care (01) ==
LOC: M ED 15:39
DX: L03.115 Cellulitis of right lower limb (principal); Z48.00 Encounter for change or removal of nonsurgical wound dressing; I89.0 Lymphedema, not elsewhere classified; J45.909 Unspecified asthma, uncomplicated; I48.91 Unspecified atrial fibrillation; Z88.1 Allergy status to other antibiotic agents

== ENCOUNTER → 2020-02-03 | Outpatient (CLI) | payer OTHER ==
[~2020-02-03] MED LIST changes: -BACTRIM 160MG/800MG DS TAB As Ordered ONE; -BACTRIM 160MG/800MG DS TAB ONE
[2020-02-03 19:31] LABS: ALBUMIN 3.5 GM/DL (3.2-5.2); ALT/SGPT 27 U/L (12-78); BILIRUBIN,TOTAL 0.4 MG/DL (0.2-1.0); BLOOD UREA NITROGEN 13 MG/DL (7-18); CALCIUM LEVEL 9.4 MG/DL (8.8-10.2); CARBON DIOXIDE LEVEL 34 MEQ/L (21-32); CHLORIDE LEVEL 105 MEQ/L (98-107); CREATININE FOR GFR 0.76 MG/DL (0.55-1.30); GLOMERULAR FILTRATION RATE > 60.0 (>45); GLUCOSE, FASTING 71 MG/DL (70-100); NT-PRO BNP 12 PG/ML (<125); POTASSIUM SERUM 4.4 MEQ/L (3.5-5.1); SODIUM LEVEL 142 MEQ/L (136-145); TOTAL PROTEIN 6.8 GM/DL (6.4-8.2)
== END ==
LOC: M PLALAB 14:21
PROVIDERS: ATTEND Family Medicine
DX: R60.9 Edema, unspecified (principal)

== ENCOUNTER → 2020-02-17 | Outpatient (REF) | payer OTHER ==
[2020-02-17 14:29] LABS: BASO % 0.8 % (0.0-1.0); EOS # 0.2 10^3/uL (0.0-0.5); EOS % 3.5 % (0.0-3.0); HEMATOCRIT 39.9 % (36.0-47.0); HEMOGLOBIN 12.3 g/dl (12.0-15.5); LYMPH # 1.3 10^3/uL (1.5-5.0); LYMPH % 26.1 % (24.0-44.0); MEAN CORPUSCULAR HGB CONC 30.8 g/dl (32.0-36.5); MEAN CORPUSCULAR VOLUME 87.5 fl (80.0-96.0); MONO # 0.4 10^3/uL (0.0-0.8); NEUTROPHILS % 61.4 % (36.0-66.0); PLATELET COUNT, AUTOMATED 282 10^3/uL (150-450); RED BLOOD COUNT 4.56 10^6/uL (4.00-5.40); WHITE BLOOD COUNT 4.9 10^3/uL (4.0-10.0)
[2020-02-17 15:19] LABS: ALBUMIN 3.7 GM/DL (3.2-5.2); ALT/SGPT 23 U/L (12-78); BILIRUBIN,TOTAL 0.4 MG/DL (0.2-1.0); BLOOD UREA NITROGEN 15 MG/DL (7-18); CALCIUM LEVEL 9.5 MG/DL (8.8-10.2); CARBON DIOXIDE LEVEL 29 MEQ/L (21-32); CHLORIDE LEVEL 104 MEQ/L (98-107); CHOLESTEROL LEVEL 266 MG/DL (<200); CHOLESTEROL RISK RATIO 3.594 (<5); CREATININE FOR GFR 0.76 MG/DL (0.55-1.30); FREE T4 0.56 NG/DL (0.76-1.46); GLOMERULAR FILTRATION RATE > 60.0 (>45); GLUCOSE, FASTING 78 MG/DL (70-100); HDL CHOLESTEROL 74 MG/DL (>40); LDL CHOLESTEROL 171 MG/DL (<100); NON-HDL-C 192 MG/DL; POTASSIUM SERUM 4.2 MEQ/L (3.5-5.1); SODIUM LEVEL 138 MEQ/L (136-145); THYROID STIMULATING HORMONE 0.299 uIU/ML (0.358-3.740); TOTAL PROTEIN 7.1 GM/DL (6.4-8.2); TRIGLYCERIDES LEVEL 103 MG/DL (<150); VITAMIN B12 LEVEL 903 PG/ML (247-911)
[2020-02-17 15:59] LABS: HEMOGLOBIN A1c 5.7 %
== END ==
LOC: M LAB REF 12:30
PROVIDERS: ATTEND Family Medicine
DX: R73.01 Impaired fasting glucose (principal); E78.2 Mixed hyperlipidemia; R53.83 Other fatigue

== ENCOUNTER 2020-06-14 13:31 | Emergency (ER) | payer OTHER ==
[2020-06-14] MEDS ORDERED: DERMABOND TOPICAL SKIN ADHESIVE TOP ONE (13:45)
--- NOTE | 2020-06-14 14:13 | REP ---
INDICATION: fall injury; left posterior chest wall pain COMPARISON: 10/06/2019 TECHNIQUE: Portable AP view of the chest FINDINGS: The mediastinum and cardiac silhouette are stable and within normal limits for portable technique. Linear platelike fibroatelectatic changes in the right lower lung zone represent a new finding. No further consolidation, effusion, or pneumothorax. IMPRESSION: Linear platelike fibroatelectatic changes in the right lower lung zone <Electronically signed by Josue Brooks > 06/14/20 [id number]
--- NOTE | 2020-06-14 14:15 | REP ---
INDICATION: right wrist pain; s/p fall injury COMPARISON: None. TECHNIQUE: AP, lateral, bilateral oblique views right wrist. FINDINGS: Prior fixation for distal radial metaphyseal fracture noted. Generalized age-related osteopenia and degenerative changes noted. No acute wrist fracture or dislocation identified. IMPRESSION: No acute fracture or dislocation. <Electronically signed by Josue Brooks > 06/14/20 [id number]
--- NOTE | 2020-06-14 14:26 | REP ---
INDICATION: fall injury; face/neck pain. COMPARISON: Comparison head CT study March 25, 2018.. TECHNIQUE: Helical scanning is acquired. 5 mm axial images were reformatted. Coronal MPR images were generated. FINDINGS: Bone window settings demonstrate an intact bony calvarium. There is no evidence of skull fracture or incidental bony calvarial lesion. The visualized paranasal sinuses appear clear. No intraorbital abnormality is seen. On soft tissue window setting images; the lateral, third, and fourth ventricles are normal in size and position. Stephenson-white differentiation pattern is normal above and below the tentorium. There are is no evidence of intracranial hemorrhage. No mass, edema, infarction, or midline shift is seen. No extra-axial fluid collection is appreciated. Preliminary digital saddle and side wire stitcher radiograph demonstrates extensive fusion hardware in the cervical spine. IMPRESSION: Negative noncontrast head CT. <Electronically signed by Hany Black > 06/14/20 [id number]
--- NOTE | 2020-06-14 14:31 | REP ---
INDICATION: fall injury; face/neck pain. COMPARISON: None. TECHNIQUE: Helical scanning is acquired and overlapping 2 mm high resolution axial images were generated and reviewed at bone and soft tissue window settings. Coronal and sagittal multiplanar re-formations images are generated. FINDINGS: There is no evidence of cervical spine element fracture. No skull base fracture is seen. Cervical vertebral body heights are preserved. Alignment is normal. Facet joints are normally aligned bilaterally at each cervical level on multiplanar re-formations images. There is no evidence of intraspinal or paraspinal hematoma. No extra vertebral abnormality is seen. The patient is status post ventral discectomy and fusion plating across the C3 through C6 disc levels. There is posterior element screw mara fusion fixation bilaterally C3 through T2. There is straightening of the normal cervical lordosis. The surgical changes are new when compared with the prior study of December 22, 2013. There is no evidence of acute cervical spine element fracture. There is nodular goiter with several calcific nodules in the thyroid gland unchanged from the comparison study 2013. The lung apices are clear. IMPRESSION: Extensive ventral and dorsal fusion fixation throughout the cervical spine, the C2 through T2. Straightening. No traumatic abnormality noted.. <Electronically signed by Hany Black > 06/14/20 [id number]
--- NOTE | 2020-06-14 15:00 | REP ---
INDICATION: fall injury; face/neck pain. COMPARISON: NONE. TECHNIQUE: Helical scanning is acquired and 2 mm axial images re-formatted. Coronal MPR images are generated and reviewed. FINDINGS: Bony orbital margins are intact. The frontal, ethmoidal, sphenoidal, and maxillary sinuses are clear. No mandibular fracture or maxillary fracture is seen. Zygomatic arches are intact. There is some spray artifact from dental amalgam and cervical spine fusion hardware. No intraorbital hematoma is seen. Visualized intracranial structures are unremarkable. The nasal bone is intact. Inferior maxillary spine appears intact. IMPRESSION: No maxillofacial fracture seen. No mandibular fracture noted. Status post cervical spine fusion hardware. <Electronically signed by Hany Black > 06/14/20 [id number]
[2020-06-14] MEDS ORDERED: PERCOCET 5MG/325MG TAB PO ONE (15:30)
[2020-06-14 16:05] VITALS: BP 187/98
== END 2020-06-14 16:23 | disposition home or self-care (01) ==
LOC: M ED 13:31
DX: S01.81XA Laceration without foreign body of other part of head, initial encounter (principal); S60.211A Contusion of right wrist, initial encounter; S20.229A Contusion of unspecified back wall of thorax, initial encounter; W19.XXXA Unspecified fall, initial encounter; Y92.018 Other place in single-family (private) house as the place of occurrence of the external cause; Z79.899 Other long term (current) drug therapy; Z79.82 Long term (current) use of aspirin; Z88.0 Allergy status to penicillin; Z88.1 Allergy status to other antibiotic agents; Z88.5 Allergy status to narcotic agent; Z88.8 Allergy status to other drugs, medicaments and biological substances

== ENCOUNTER → 2020-06-20 | Outpatient (CLI) | payer OTHER ==
--- NOTE | 2020-06-20 13:47 | REP ---
INDICATION: CHRONIC VENOUS INSUFFICIENCY COMPARISON: 08/04/2019. TECHNIQUE: Real time compression and duplex Doppler interrogation of the bilateral lower extremity deep venous system is performed. FINDINGS: Bilaterally, the common femoral, superficial femoral and popliteal veins are fully compressible with transducer pressure and demonstrate normal spontaneous and phasic flow, without evidence of deep venous thrombosis. Evaluation for venous reflux is performed. In the right common femoral vein there is minimal reflux with a duration of 0.8 seconds in the standing position. Otherwise no reflux is seen in any portion of the deep system, nor in the right greater saphenous or lesser saphenous veins. Diameter of the greater saphenous vein at the saphenofemoral junction is 7 mm, at the midthigh 5 mm and at the knee 6 mm. Lesser saphenous vein measures 3 mm. Evaluation for venous reflux on the left demonstrates no evidence of reflux in the deep or superficial systems. Left greater saphenous vein measures 8 mm at the saphenofemoral junction and 4 mm in the mid thigh and at the knee. Lesser saphenous vein measures 4 mm. IMPRESSION: No evidence of deep venous thrombosis of the bilateral lower extremity femoral popliteal venous system. Minimal reflux in the right common femoral vein. No reflux bilaterally in the greater saphenous or lesser saphenous veins. <Electronically signed by Paresh Stephenson > 06/20/20 [id number]
== END ==
LOC: M RAD 12:12
PROVIDERS: ATTEND Nurse Practitioner Family
DX: I89.0 Lymphedema, not elsewhere classified (principal); I87.2 Venous insufficiency (chronic) (peripheral)

== ENCOUNTER 2020-07-22 17:06 | Emergency (ER) | payer OTHER ==
[~2020-07-22] VITALS: Ht 170.2 cm; Wt 109.1 kg
[~2020-07-22 17:06] MED LIST changes: -CLIN150C14 PO; +CLIN150C15 PO
[2020-07-22] MEDS ORDERED: KETOROLAC TROMETHAMINE 10 MG TAB PO ONE (20:00)
[2020-07-22 21:21] VITALS: BP 158/98
[2020-07-22] MEDS ORDERED: LIDOCAINE 5% (LIDODERM) PATCH TD ONE (21:30)
[2020-07-23] MEDS ORDERED: **NOTE PATIENT COMMENT** MISC XX SCH (21:00)
== END 2020-07-22 21:35 | disposition home or self-care (01) ==
LOC: M ED 17:06
DX: G89.29 Other chronic pain (principal); M25.551 Pain in right hip; I10 Essential (primary) hypertension; E78.5 Hyperlipidemia, unspecified; B02.9 Zoster without complications; E05.90 Thyrotoxicosis, unspecified without thyrotoxic crisis or storm; Z78.0 Asymptomatic menopausal state; Z79.899 Other long term (current) drug therapy; Z79.82 Long term (current) use of aspirin; Z88.0 Allergy status to penicillin; Z88.1 Allergy status to other antibiotic agents; Z88.5 Allergy status to narcotic agent; Z88.8 Allergy status to other drugs, medicaments and biological substances

== ENCOUNTER → 2020-09-06 | Outpatient (CLI) | payer OTHER ==
[~2020-09-06] MED LIST changes: +METH-1164 PO; -METH1TAB40 PO
[2020-09-06 11:00] LABS: BASO % 0.8 % (0.0-1.0); EOS # 0.2 10^3/uL (0.0-0.5); HEMATOCRIT 40.8 % (36.0-47.0); LYMPH # 1.3 10^3/uL (1.5-5.0); LYMPH % 25.7 % (24.0-44.0); MEAN CORPUSCULAR HEMOGLOBIN 27.8 pg (27.0-33.0); MEAN CORPUSCULAR HGB CONC 31.9 g/dl (32.0-36.5); MEAN CORPUSCULAR VOLUME 87.4 fl (80.0-96.0); MONO # 0.5 10^3/uL (0.0-0.8); MONO % 9.1 % (2.0-8.0); NEUTROPHILS # 2.9 10^3/uL (1.5-8.5); NEUTROPHILS % 59.6 % (36.0-66.0); PLATELET COUNT, AUTOMATED 266 10^3/uL (150-450); RED BLOOD COUNT 4.67 10^6/uL (4.00-5.40); WHITE BLOOD COUNT 4.9 10^3/uL (4.0-10.0)
[2020-09-06 11:38] LABS: ALBUMIN 3.7 GM/DL (3.2-5.2); ALT/SGPT 23 U/L (12-78); BILIRUBIN,TOTAL 0.3 MG/DL (0.2-1.0); BLOOD UREA NITROGEN 20 MG/DL (7-18); C REACTIVE PROTEIN QUANTITATIV 0.36 MG/DL (0.00-0.30); CALCIUM LEVEL 9.4 MG/DL (8.8-10.2); CARBON DIOXIDE LEVEL 29 MEQ/L (21-32); CHLORIDE LEVEL 106 MEQ/L (98-107); CHOLESTEROL LEVEL 229 MG/DL (<200); CHOLESTEROL RISK RATIO 3.136 (<5); CPK CREATINE PHOSPHOKINASE 98 U/L (26-192); CREATININE FOR GFR 0.68 MG/DL (0.55-1.30); FERRITIN 18 NG/ML (8-252); FREE T4 0.81 NG/DL (0.76-1.46); GLOMERULAR FILTRATION RATE > 60.0 (>45); GLUCOSE, FASTING 92 MG/DL (70-100); HDL CHOLESTEROL 73 MG/DL (>40); IRON (FE) 53 UG/DL (50-170); LDL CHOLESTEROL 137 MG/DL (<100); NON-HDL-C 156 MG/DL; PERCENT SATURATION 13.1 % (13.2-45.0); POTASSIUM SERUM 4.3 MEQ/L (3.5-5.1); SODIUM LEVEL 139 MEQ/L (136-145); THYROID STIMULATING HORMONE < 0.005 uIU/ML (0.358-3.740); TOTAL IRON BINDING CAPACITY 404 UG/DL (250-450); TOTAL PROTEIN 6.8 GM/DL (6.4-8.2); TRIGLYCERIDES LEVEL 96 MG/DL (<150)
[2020-09-06 11:45] LABS: ERYTHROCYTE SEDIMENTATION RATE 23 mm/hr (0-30)
== END ==
LOC: M LAB 09:32
PROVIDERS: ATTEND Family Medicine
DX: M05.79 Rheumatoid arthritis with rheumatoid factor of multiple sites without organ or systems involvement (principal); E53.8 Deficiency of other specified B group vitamins; R73.01 Impaired fasting glucose; E78.2 Mixed hyperlipidemia; E05.20 Thyrotoxicosis with toxic multinodular goiter without thyrotoxic crisis or storm

== ENCOUNTER → 2020-09-06 | Outpatient (CLI) | payer OTHER ==
[2020-09-06 11:55] LABS: BLOOD UREA NITROGEN 18 MG/DL (7-18); CALCIUM LEVEL 9.3 MG/DL (8.8-10.2); CARBON DIOXIDE LEVEL 28 MEQ/L (21-32); CHLORIDE LEVEL 104 MEQ/L (98-107); CHOLESTEROL LEVEL 219 MG/DL (<200); CHOLESTEROL RISK RATIO 3.173 (<5); CREATININE FOR GFR 0.67 MG/DL (0.55-1.30); FREE T4 0.81 NG/DL (0.76-1.46); GLOMERULAR FILTRATION RATE > 60.0 (>45); GLUCOSE, FASTING 88 MG/DL (70-100); HDL CHOLESTEROL 69 MG/DL (>40); LDL CHOLESTEROL 130 MG/DL (<100); MAGNESIUM LEVEL 2.2 MG/DL (1.8-2.4); NON-HDL-C 150 MG/DL; NT-PRO BNP 10 PG/ML (<125); POTASSIUM SERUM 4.4 MEQ/L (3.5-5.1); SODIUM LEVEL 139 MEQ/L (136-145); THYROID STIMULATING HORMONE < 0.005 uIU/ML (0.358-3.740); TRIGLYCERIDES LEVEL 98 MG/DL (<150)
== END ==
LOC: M LAB 09:36
PROVIDERS: ATTEND Physician Assistant
DX: E78.5 Hyperlipidemia, unspecified (principal); R06.02 Shortness of breath; R00.2 Palpitations

== ENCOUNTER → 2020-10-14 | Outpatient (RCR) | payer OTHER | LOC: M PT 10-03 08:39 | PROVIDERS: ATTEND Family Medicine | DX: I89.0 Lymphedema, not elsewhere classified (principal) ==

== ENCOUNTER → 2020-10-21 | Outpatient (CLI) | payer OTHER | LOC: M LABSMTC 12:39 | PROVIDERS: ATTEND Family Medicine | DX: Z11.52 Encounter for screening for COVID-19 (principal) ==

== ENCOUNTER → 2020-10-28 | Outpatient (REF) | payer OTHER ==
[~2020-10-28] MED LIST changes: +GABA-283 PO; -GABA-845 PO
[2020-10-28 13:55] LABS: BASO % 0.6 % (0.0-1.0); EOS # 0.1 10^3/uL (0.0-0.5); EOS % 1.6 % (0.0-3.0); HEMATOCRIT 42.1 % (36.0-47.0); HEMOGLOBIN 12.9 g/dl (12.0-15.5); LYMPH # 1.2 10^3/uL (1.5-5.0); LYMPH % 24.2 % (24.0-44.0); MEAN CORPUSCULAR HEMOGLOBIN 27.3 pg (27.0-33.0); MEAN CORPUSCULAR HGB CONC 30.6 g/dl (32.0-36.5); MONO # 0.4 10^3/uL (0.0-0.8); MONO % 8.3 % (2.0-8.0); NEUTROPHILS # 3.3 10^3/uL (1.5-8.5); NEUTROPHILS % 65.1 % (36.0-66.0); PLATELET COUNT, AUTOMATED 243 10^3/uL (150-450); RED BLOOD COUNT 4.73 10^6/uL (4.00-5.40); WHITE BLOOD COUNT 5.1 10^3/uL (4.0-10.0)
[2020-10-28 14:12] LABS: ALBUMIN 3.7 GM/DL (3.2-5.2); ALT/SGPT 26 U/L (12-78); BILIRUBIN,TOTAL 0.3 MG/DL (0.2-1.0); BLOOD UREA NITROGEN 17 MG/DL (7-18); CALCIUM LEVEL 9.6 MG/DL (8.8-10.2); CARBON DIOXIDE LEVEL 32 MEQ/L (21-32); CHLORIDE LEVEL 107 MEQ/L (98-107); CREATININE FOR GFR 0.64 MG/DL (0.55-1.30); FERRITIN 16 NG/ML (8-252); FREE T4 0.89 NG/DL (0.76-1.46); GLOMERULAR FILTRATION RATE > 60.0 (>45); GLUCOSE, FASTING 95 MG/DL (70-100); IRON (FE) 55 UG/DL (50-170); POTASSIUM SERUM 4.2 MEQ/L (3.5-5.1); SODIUM LEVEL 142 MEQ/L (136-145); THYROID STIMULATING HORMONE < 0.005 uIU/ML (0.358-3.740); TOTAL PROTEIN 6.7 GM/DL (6.4-8.2); TROPONIN I < 0.02 NG/ML (< 0.10)
[2020-10-28 14:16] LABS: VITAMIN B12 LEVEL 1251 PG/ML (247-911)
== END ==
LOC: M SFHCPLAZ 09:56
PROVIDERS: ATTEND Physician Assistant
DX: R53.83 Other fatigue (principal); E55.9 Vitamin D deficiency, unspecified; E53.8 Deficiency of other specified B group vitamins; R51.9 Headache, unspecified

== ENCOUNTER → 2020-11-04 | Outpatient (CLI) | payer OTHER ==
[2020-11-04 11:26] LABS: FOLLICLE STIMULATING HORMONE 58.8 mIU/mL; LUTEINIZING HORMONE 32.9 mIU/mL; THYROGLOBULIN ANTIBODY < 15.0 U/ML (<60.0); THYROID PEROXIDASE ANTIBODY < 28.0 U/ML (<60.0); TOTAL T3 165.8 NG/DL (60.0-181.0)
[2020-11-06 23:07] LABS: HUMAN GROWTH HORMONE 0.1 ng/mL (0.0-10.0)
== END ==
LOC: M LAB 09:41
PROVIDERS: ATTEND Nurse Practitioner Family
DX: E05.20 Thyrotoxicosis with toxic multinodular goiter without thyrotoxic crisis or storm (principal)

== ENCOUNTER 2020-11-11 13:30 | Outpatient (RCR) | payer OTHER | END 2020-11-14 | LOC: M PT 13:30 | PROVIDERS: ATTEND Family Medicine | DX: I89.0 Lymphedema, not elsewhere classified (principal) ==

== ENCOUNTER → 2020-11-11 | Outpatient (REF) | payer OTHER | LOC: M LAB REF 13:42 | PROVIDERS: ATTEND Physician Assistant | DX: D48.5 Neoplasm of uncertain behavior of skin (principal) ==

== ENCOUNTER → 2020-11-11 | Outpatient (CLI) | payer OTHER ==
[2020-11-11 12:38] LABS: BLOOD UREA NITROGEN 14 MG/DL (7-18); CREATININE FOR GFR 0.64 MG/DL (0.55-1.30); GLOMERULAR FILTRATION RATE > 60.0 (>45)
== END ==
LOC: M LAB 10:54
PROVIDERS: ATTEND Ophthalmology
DX: H53.40 Unspecified visual field defects (principal)

== ENCOUNTER → 2020-11-17 | Outpatient (CLI) | payer OTHER ==
[~2020-11-17] MED LIST changes: +DOCU100C16 PO; +LORA-674 PO; +NORT25CA2 PO
--- NOTE | 2020-11-17 17:14 | REPVR ---
PROCEDURE INFORMATION: Exam: MR Head Without and With Contrast Exam date and time: 11/17/2020 4:49 PM Age: 65 years old Clinical indication: Visual disturbance; Additional info: Visual field defect TECHNIQUE: Imaging protocol: MR of the head without and with intravenous contrast. Contrast material: PROHANCE; Contrast volume: 20 ml; Contrast route: INTRAVENOUS (IV); COMPARISON: MRI-Brain W/O FOLL BY WITH 04/18/2017 6:31 PM FINDINGS: Brain: The diffusion sequence is technically limited, with areas of artifact. No definitive restricted diffusion acute territorial type infarct is visualized. There are scattered foci of FLAIR hyperintensity within the cerebral white matter. There is no mass effect or restricted diffusion associated with these foci. In a patient this age, this likely represents chronic small vessel ischemic disease. There is a stable focus of magnetic susceptibility hemosiderin involving the posterior left temporal lobe medially. Cavernous malformation and amyloid angiopathy are within the differential. No abnormally enhancing intracranial mass is visualized. No cerebral edema. Cerebral ventricles: No ventriculomegaly. Bones/joints: Hyperostosis frontalis interna. Paranasal sinuses: Minimal mucosal thickening of a few ethmoid air cells. Mastoid air cells: No mastoid effusion. Orbital cavity: Normal morphology of the optic globes. Soft tissues: Unremarkable, as visualized. IMPRESSION: 1. The diffusion sequence is technically limited, without definitive acute territorial type infarct. 2. Mild cerebral white matter disease. In a patient this age, this likely represents chronic small vessel ischemic disease. 3. There is a stable focus of magnetic susceptibility hemosiderin involving the posterior left temporal lobe medially. Cavernous malformation and amyloid angiopathy are within the differential. 4. Additional findings described above. Electronically signed by: Sergio Ramos On 11/17/2020 17:13:52 PM
== END ==
LOC: M PLARAD 14:45
PROVIDERS: ATTEND Ophthalmology
DX: H53.40 Unspecified visual field defects (principal)

== ENCOUNTER 2020-11-19 15:06 | Emergency (ER) | payer OTHER ==
[~2020-11-19] VITALS: Ht 170.2 cm; Wt 104.7 kg
[~2020-11-19 15:06] MED LIST changes: -DOCU100C16 PO; -LORA-674 PO; -NORT25CA2 PO
[2020-11-19] MEDS ORDERED: CYCL-707 PO (15:20)
[2020-11-19] MEDS ORDERED: NORT25CA2 PO (15:20)
[2020-11-19] MEDS ORDERED: DOCU100C16 PO (15:20)
[2020-11-19] MEDS ORDERED: LORA-674 PO (15:20)
[2020-11-19 17:32] LABS: BASO % 0.4 % (0.0-1.0); EOS # 0.2 10^3/uL (0.0-0.5); EOS % 3.2 % (0.0-3.0); HEMATOCRIT 42.8 % (36.0-47.0); HEMOGLOBIN 13.8 g/dl (12.0-15.5); LYMPH # 1.6 10^3/uL (1.5-5.0); LYMPH % 30.2 % (24.0-44.0); MEAN CORPUSCULAR HEMOGLOBIN 28.5 pg (27.0-33.0); MEAN CORPUSCULAR HGB CONC 32.2 g/dl (32.0-36.5); MEAN CORPUSCULAR VOLUME 88.2 fl (80.0-96.0); MONO # 0.4 10^3/uL (0.0-0.8); MONO % 7.4 % (2.0-8.0); NEUTROPHILS # 3.1 10^3/uL (1.5-8.5); NEUTROPHILS % 58.6 % (36.0-66.0); PLATELET COUNT, AUTOMATED 249 10^3/uL (150-450); RED BLOOD COUNT 4.85 10^6/uL (4.00-5.40); WHITE BLOOD COUNT 5.3 10^3/uL (4.0-10.0)
[2020-11-19 17:43] LABS: INR 1.01; PROTHROMBIN TIME 13.5 SECONDS (12.5-14.3)
[2020-11-19 17:44] LABS: PARTIAL THROMBOPLASTIN TIME 30.2 SECONDS (24.2-38.5)
[2020-11-19] MEDS ORDERED: ACETAMINOPHEN 325 MG TAB PO ONE (17:45)
--- NOTE | 2020-11-19 17:56 | REP ---
INDICATION: pain s/p replacement COMPARISON: 12/25/2019 TECHNIQUE: Internal rotation, external rotation, and Y view. FINDINGS: Right shoulder replacement appears to be in stable position. There is a broad-based osteophyte forming along the inferior margin of the acromion which represents a relatively new finding as compared to prior examination suggesting progressive degenerative change. Remainder of the examination is stable. IMPRESSION: Large broad-based inferior osteophyte forming along the acromion process <Electronically signed by Josue Brooks > 11/19/20 [id number]
--- NOTE | 2020-11-19 18:00 | REP ---
INDICATION: pain, swelling, bruising r/o dvt COMPARISON: None. TECHNIQUE: Stephenson scale and color Doppler evaluation right upper extremity using linear high frequency transducer. FINDINGS: Ultrasound examination of the right upper extremity including jugular, axillary, subclavian, brachial, basilic, and cephalic veins are patent and without deep venous thrombosis. Contralateral left subclavian vein is patent. IMPRESSION: No evidence for deep venous thrombosis right upper extremity. <Electronically signed by Josue Brooks > 11/19/20 [id number]
[2020-11-19 18:01] LABS: BLOOD UREA NITROGEN 16 MG/DL (7-18); CALCIUM LEVEL 9.7 MG/DL (8.8-10.2); CARBON DIOXIDE LEVEL 31 MEQ/L (21-32); CHLORIDE LEVEL 105 MEQ/L (98-107); CREATININE FOR GFR 0.63 MG/DL (0.55-1.30); GLOMERULAR FILTRATION RATE > 60.0 (>45); GLUCOSE, FASTING 95 MG/DL (70-100); POTASSIUM SERUM 4.2 MEQ/L (3.5-5.1); SODIUM LEVEL 140 MEQ/L (136-145)
[2020-11-19 19:53] VITALS: BP 141/86
== END 2020-11-19 19:54 | disposition home or self-care (01) ==
LOC: M ED 15:06
DX: R58 Hemorrhage, not elsewhere classified (principal); M19.011 Primary osteoarthritis, right shoulder; J45.909 Unspecified asthma, uncomplicated; C85.90 Non-Hodgkin lymphoma, unspecified, unspecified site; E03.9 Hypothyroidism, unspecified; E78.5 Hyperlipidemia, unspecified; G47.33 Obstructive sleep apnea (adult) (pediatric); Z79.899 Other long term (current) drug therapy; Z79.82 Long term (current) use of aspirin; Z88.0 Allergy status to penicillin; Z88.1 Allergy status to other antibiotic agents; Z88.5 Allergy status to narcotic agent; Z88.8 Allergy status to other drugs, medicaments and biological substances

== ENCOUNTER 2020-12-09 13:16 | Outpatient (RCR) | payer OTHER ==
[~2020-12-09 13:16] MED LIST changes: +DOCU100C16 PO; +LORA-674 PO; +NORT25CA2 PO; +OMEP40CA4 PO; -OMEP40CA97 PO
== END 2020-12-14 ==
LOC: M PT 13:16
PROVIDERS: ATTEND Physician Assistant
DX: I89.0 Lymphedema, not elsewhere classified (principal)

== ENCOUNTER 2020-12-15 12:00 | Outpatient (RCR) | payer OTHER | END 2021-01-14 | LOC: M PT 12:00 | PROVIDERS: ATTEND Physician Assistant | DX: I89.0 Lymphedema, not elsewhere classified (principal) ==

== ENCOUNTER 2020-12-25 15:35 | Emergency (ER) | payer OTHER ==
[~2020-12-25] VITALS: Ht 170.2 cm; Wt 102.7 kg
[~2020-12-25 15:35] MED LIST changes: -CLIN150C15 PO; +CLIN150C17 PO
[2020-12-25] MEDS ORDERED: ACETAMINOPHEN 500 MG TAB PO ONE (17:10)
[2020-12-25] MEDS ORDERED: BOOSTRIX/ADACEL VACCINE (DIPHTH/PERTUSS/ACELL/TETANUS) 0.5ML SYR IM ONE (17:10)
[2020-12-25] MEDS ORDERED: LIDOCAINE 1% MDV 20ML VIAL INFIL ONE (17:10)
[2020-12-25 19:41] VITALS: BP 144/84
== END 2020-12-25 19:44 | disposition home or self-care (01) ==
LOC: M ED 15:35
DX: S61.214A Laceration without foreign body of right ring finger without damage to nail, initial encounter (principal); W26.8XXA Contact with other sharp object(s), not elsewhere classified, initial encounter; Y92.018 Other place in single-family (private) house as the place of occurrence of the external cause; J45.909 Unspecified asthma, uncomplicated; E05.90 Thyrotoxicosis, unspecified without thyrotoxic crisis or storm; F41.9 Anxiety disorder, unspecified; E78.5 Hyperlipidemia, unspecified; M81.0 Age-related osteoporosis without current pathological fracture; G47.30 Sleep apnea, unspecified; G89.29 Other chronic pain; M54.9 Dorsalgia, unspecified; Z79.899 Other long term (current) drug therapy; Z79.82 Long term (current) use of aspirin; Z88.0 Allergy status to penicillin; Z88.1 Allergy status to other antibiotic agents; Z88.5 Allergy status to narcotic agent; Z88.8 Allergy status to other drugs, medicaments and biological substances

== ENCOUNTER → 2021-02-09 | Outpatient (REF) | payer OTHER | LOC: M SFHCWAGY 19:06 | PROVIDERS: ATTEND Advanced Practice Midwife | DX: Z12.4 Encounter for screening for malignant neoplasm of cervix (principal); N95.8 Other specified menopausal and perimenopausal disorders ==

== ENCOUNTER → 2021-02-09 | Outpatient (CLI) | payer OTHER ==
--- NOTE | 2021-02-09 14:43 | REPMRS ---
Patient History The patient states she has not had a clinical breast exam in over a year. Family history of ovarian cancer under age 50 in sister, prostate cancer at age 50 or over in brother. Benign US guided breast biopsy of the left breast, March 28, 2016. Benign excisional biopsy of the left breast. Benign excisional biopsy of the right breast. Took estrogen for 3 years. Patient states no breast complaints today. Patient has signed MRS History Sheet. Digital Woman Screen Mammo: February 09, 2021 - Exam #: [id number] Bilateral CC and MLO view(s) were taken. Technologist: Maddy Garcia, Technologist Prior study comparison: January 06, 2019, bilateral digital woman screen mammo performed at [facility]. August 19, 2017, digital woman screen mammo performed at [facility]. February 27, 2016, digital woman screen mammo performed at [facility]. FINDINGS: The breast tissue is almost entirely fat. The Volpara volumetric breast density category is: A. There is a needle biopsy marker clip noted in the left breast. There has been no change in the appearance of the mammogram from the prior studies. There is no interval development of dominant mass, architectural distortion, or grouped microcalcification typical of malignancy. 3-D tomosynthesis shows no additional findings. Assessment: BI-RADS/ACR category 2 mammogram. Benign Findings. Recommendation Routine screening mammogram of both breasts in 1 year (for women over age 40). This patient's [facility] Lifetime Breast Cancer RIsk is estimated at 5.2 %. This mammogram was interpreted with the aid of an FDA-approved computer-aided dectection system. Electronically Signed By: Hany Black MD 02/09/21 [id number]
== END ==
LOC: M WHC 13:04
PROVIDERS: ATTEND Family Medicine
DX: Z12.31 Encounter for screening mammogram for malignant neoplasm of breast (principal); Z80.41 Family history of malignant neoplasm of ovary; Z86.018 Personal history of other benign neoplasm; Z92.23 Personal history of estrogen therapy

== ENCOUNTER → 2021-03-24 | Outpatient (CLI) | payer OTHER ==
[2021-03-24 13:26] LABS: BLOOD UREA NITROGEN 13 MG/DL (7-18); CALCIUM LEVEL 9.3 MG/DL (8.8-10.2); CARBON DIOXIDE LEVEL 31 MEQ/L (21-32); CHLORIDE LEVEL 105 MEQ/L (98-107); CREATININE FOR GFR 0.77 MG/DL (0.55-1.30); GLOMERULAR FILTRATION RATE > 60.0 (>45); GLUCOSE, FASTING 97 MG/DL (70-100); POTASSIUM SERUM 3.7 MEQ/L (3.5-5.1); SODIUM LEVEL 139 MEQ/L (136-145)
== END ==
LOC: M LAB 11:31
PROVIDERS: ATTEND Psychiatry & Neurology Neurology
DX: H47.292 Other optic atrophy, left eye (principal)

== ENCOUNTER 2021-06-12 18:25 | Emergency (ER) | payer OTHER ==
[~2021-06-12] VITALS: Ht 170.2 cm; Wt 113.6 kg
[2021-06-12] MEDS ORDERED: PENT400T22 (18:41)
[2021-06-12] MEDS ORDERED: ROPI0.5T3 (18:41)
[2021-06-12 19:37] LABS: RSV AMPLIFICATION NEGATIVE (NEGATIVE)
[2021-06-12] MEDS ORDERED: ALBUTEROL 90 MCG/ACT 8GM HFA INHALER INH ONE (20:40)
[2021-06-12] MEDS ORDERED: ACETAMINOPHEN 325 MG TAB PO ONE (20:45)
[2021-06-12] MEDS ORDERED: NS 500 ML IV ONE (20:45)
--- NOTE | 2021-06-12 22:09 | REPVR ---
PROCEDURE INFORMATION: Exam: XR Chest Exam date and time: 06/12/2021 8:49 PM Age: 65 years old Clinical indication: Shortness of breath; Additional info: SOB, +covid TECHNIQUE: Imaging protocol: XR of the chest. Views: 1 view. COMPARISON: CR Chest, 1 view 06/14/2020 2:03 PM FINDINGS: Lungs: Degree of lung inflation is normal. No evidence of pulmonary edema. No focal consolidation or parenchymal lung mass. Pleural spaces: No pleural effusion or pneumothorax. Heart/Mediastinum: Cardiac silhouette appears normal. No adenopathy or hilar mass. Bones/joints: Osseous structures show no concerning abnormality. Cervical spine fixation hardware is present. Reverse shoulder arthroplasty hardware is present IMPRESSION: No acute or focal cardiopulmonary process. Electronically signed by: Tiago Traore On 06/12/2021 22:09:34 PM
[2021-06-12 22:27] LABS: BASO % 0.6 % (0.0-1.0); EOS # 0.1 10^3/uL (0.0-0.5); EOS % 2.7 % (0.0-3.0); HEMATOCRIT 39.7 % (36.0-47.0); HEMOGLOBIN 12.8 g/dl (12.0-15.5); LYMPH # 0.9 10^3/uL (1.5-5.0); LYMPH % 17.5 % (24.0-44.0); MEAN CORPUSCULAR HEMOGLOBIN 27.8 pg (27.0-33.0); MEAN CORPUSCULAR HGB CONC 32.2 g/dl (32.0-36.5); MEAN CORPUSCULAR VOLUME 86.3 fl (80.0-96.0); MONO # 0.6 10^3/uL (0.0-0.8); MONO % 11.3 % (2.0-8.0); NEUTROPHILS # 3.3 10^3/uL (1.5-8.5); NEUTROPHILS % 67.7 % (36.0-66.0); PLATELET COUNT, AUTOMATED 217 10^3/uL (150-450); WHITE BLOOD COUNT 4.9 10^3/uL (4.0-10.0)
[2021-06-12 22:41] LABS: D-DIMER QUANT 884.53 ng/ml (<500)
[2021-06-12 23:01] LABS: ALBUMIN 3.6 GM/DL (3.2-5.2); ALT/SGPT 41 U/L (12-78); BILIRUBIN,TOTAL 0.3 MG/DL (0.2-1.0); BLOOD UREA NITROGEN 16 MG/DL (7-18); C REACTIVE PROTEIN QUANTITATIV 1.08 MG/DL (0.00-0.30); CALCIUM LEVEL 9.2 MG/DL (8.8-10.2); CARBON DIOXIDE LEVEL 27 MEQ/L (21-32); CHLORIDE LEVEL 107 MEQ/L (98-107); CREATININE FOR GFR 0.71 MG/DL (0.55-1.30); FERRITIN 22 NG/ML (8-252); GLOMERULAR FILTRATION RATE > 60.0 (>45); GLUCOSE, FASTING 102 MG/DL (70-100); LDH LACTATE DEHYDROGENASE 256 U/L (84-246); POTASSIUM SERUM 3.7 MEQ/L (3.5-5.1); SODIUM LEVEL 139 MEQ/L (136-145); TOTAL PROTEIN 6.6 GM/DL (6.4-8.2)
[2021-06-12] MEDS ORDERED: ISOVUE-370 76% 100ML VIAL As Ordered ONE (23:04)
--- NOTE | 2021-06-12 23:43 | REPVR ---
PROCEDURE INFORMATION: Exam: CTA Chest With Contrast Exam date and time: 06/12/2021 10:47 PM Age: 65 years old Clinical indication: Shortness of breath; Additional info: Covid, SOB, tachycardia R/O pe TECHNIQUE: Imaging protocol: Computed tomographic angiography of the chest with contrast. 3D rendering (Not supervised by radiologist): MIP and/or 3D reconstructed images were created by the technologist. Radiation optimization: All CT scans at this facility use at least one of these dose optimization techniques: automated exposure control; mA and/or kV adjustment per patient size (includes targeted exams where dose is matched to clinical indication); or iterative reconstruction. Contrast material: ISO; Contrast volume: 75 ml; Contrast route: INTRAVENOUS (IV); COMPARISON: CT ANGIO CHEST 10/06/2019 8:01 PM FINDINGS: Pulmonary arteries: Central pulmonary arteries show no intraluminal defect suggestive of clot. Pulmonary vascular/interstitial pattern does not suggest active pulmonary edema. Aorta: No thoracic aortic aneurysm or dissection. Thyroid: Thyroid gland is enlarged and multi-nodular. Lungs: Atelectatic change is present in the right lung base. No suspicious lung mass or air space process. No central endobronchial lesion. Pleural spaces: No pleural effusion or pneumothorax. Heart: Peripheral pulmonary artery evaluation limited by cardiac and respiratory motion artifact. No overt cardiac enlargement or abnormal volume of pericardial fluid. Mediastinal space: Residual thymic tissue is present in the anterior mediastinum. Lymph nodes: No enlarged mediastinal lymph nodes. Bones/joints: Multi-level, age-related thoracic degenerative disc disease is present. Cervical and thoracic spine fixation hardware is present and bilateral reverse glenohumeral arthroplasty hardware is present IMPRESSION: 1. No evidence of acute, central pulmonary embolus. Peripheral pulmonary arterial evaluation is limited by cardiac and respiratory motion artifact. 2. Dependent right basilar atelectasis. No evidence of pneumonia or pulmonary edema. 3. Enlarged multinodular thyroid gland with similar appearance compared to the prior CT from October 06, 2019 Electronically signed by: Tiago Traore On 06/12/2021 23:43:00 PM
[2021-06-13 00:12] VITALS: BP 132/69
[2021-06-13] MEDS ORDERED: BENZ200C70 PO (00:19)
[2021-06-13] MEDS ORDERED: LEVA45AE INH (00:19)
--- NOTE | 2021-06-13 08:25 | ED PDOC ---
Post-Departure Follow-Up radiology report faxed to john chi Sarah MD Jun 13, 2021 08:25
--- NOTE | 2021-06-13 09:57 | ECGEPIP ---
[facility] - ED Test Date: 2021-06-12 Pat Name: LO CARROLL Department: Room: - Gender: Female Rv Repair Technician: Felisa : 1955 Requested By: JIMI BRADLEY PA-C. Order Number: [id number] Reading MD: Yeison St Measurements Intervals [place] Rate: 124 P: 50 DC: 160 QRS: 30 QRSD: 78 T: 52 QT: 306 QTc: 439 Interpretive Statements Sinus tachycardia POSSIBLE LEFT ATRIAL ENLARGEMENT BASELINE ARTIFACT AFFECTS INTERPRETATION SIMILAR TO 10/06/19 Electronically Signed on 06-13-2021 9:57:[address]
== END 2021-06-13 01:04 | disposition home or self-care (01) ==
LOC: M ED 18:25
DX: R05.9 Cough, unspecified (principal); U07.1 COVID-19; R00.0 Tachycardia, unspecified; E05.20 Thyrotoxicosis with toxic multinodular goiter without thyrotoxic crisis or storm; J45.909 Unspecified asthma, uncomplicated; M81.0 Age-related osteoporosis without current pathological fracture; E78.5 Hyperlipidemia, unspecified; Z88.0 Allergy status to penicillin; Z88.1 Allergy status to other antibiotic agents; Z88.5 Allergy status to narcotic agent; Z88.8 Allergy status to other drugs, medicaments and biological substances
CPT/HCPCS: 71045; 71275; 80053; 82728; 83605; 83615; 83735; 85025; 85379; 85384; 86140; 87631; 93005; 94640; 96360; 96361; 99284; Q9967

== ENCOUNTER 2021-06-14 12:47 | Outpatient (CLI) | payer OTHER ==
--- NOTE | 2021-06-13 01:20 | IPNPDOC ---
Text Note Date of Service The patient was seen on 06/13/21. Alon Solitario Jun 13, 2021 01:19
--- NOTE | 2021-06-13 03:47 | CR.PDOC ---
General Date of Consultation: Jun 13, 2021 Attending Physician: Alon Solitario Consultation REASON FOR CONSULTATION: Counseling for monoclonal antibody infusion for COVID-19. HISTORY OF PRESENT ILLNESS: Patient was seen in the emergency department after she was referred by the ER physician for antibody infusion for counseling of and consent for SARS [id number] immunoglobulin infusion (monoclonal antibody infusion) as outpa tient. Patient was earlier seen in the emergency department by the ER provider on 06/12/2021. She tested positive for SARS COV 2 on PCR test on specimen drawn on 06/12/2021 All aspects of monoclonal antibodies were discussed with patient. After discussing benefits, risks and alternatives, written consent was obtained. All questions were answered. Out patient monoclonal antibody infusion therapy orders were entered. Allergies Coded Allergies: cephalexin (Verified Allergy, Severe, wheezing, 11/15/18) erythromycin base (Verified Allergy, Severe, anaphYlxis, 08/11/19) tetracycline (Verified Allergy, Severe, anaphYlaxis, 08/11/19) Quinolones (Verified Allergy, Mild, rash, 11/15/18) codeine (Verified Adverse Reaction, Intermediate, "SUPER SICK", HALLUCINATIONS, 08/11/19) Penicillins (Verified Adverse Reaction, Mild, yeast infection, 11/15/18) diphenhydramine (Verified Adverse Reaction, Unknown, 08/11/19) Home Medications Scheduled Aspirin (Aspirin EC) 81 Mg Tab, 81 MG PO QAM, (Reported) Cholecalciferol (Vitamin D3) (Vitamin D3) 2,000 Unit Cap, 2,000 UNIT PO DAILY, (Reported) Citalopram Hydrobromide (Citalopram HBr) 20 Mg Tab, 40 MG PO DAILY, (Reported) Cyanocobalamin (Vitamin B-12) (Vitamin B-12) 1,000 Mcg Tab, 1,000 MCG PO DAILY, (Reported) Docusate Sodium (Docusate Sodium) 100 Mg Capsule, 100 MG PO TID, (Reported) Doxylamine Succinate (Sleep Aid) 25 Mg Tab, 50 MG PO QHS, (Reported) Gabapentin (Gabapentin) 400 Mg Cap, 300 MG PO BID, (Reported) Hydroxyzine HCl (Hydroxyzine HCl) 10 Mg Tablet, 1 MG PO BID, (Reported) Loratadine (Loratadine) 10 Mg Tablet, 10 MG PO DAILY for allergy symptoms for 30 Days, #30 (Reported) Methimazole (Tapazole) 5 Mg Tab, 5 MG PO QAM, (Reported) Methocarbamol (Methocarbamol) 500 Mg Tablet, 1 TAB PO BID, (Reported) Nortriptyline HCl (Nortriptyline HCl) 25 Mg Capsule, 25 MG PO DAILY, (Reported) Omeprazole (Omeprazole) 40 Mg Cap, PO BID, (Reported) Simvastatin (Simvastatin) 20 Mg Tab, PO DAILY, (Reported) Valacyclovir HCl (Valtrex) 500 Mg Tab, 500 MG PO QAM, (Reported) Scheduled PRN Albuterol Sulf (Albuterol Sulfate) 2.5 Mg/3 Ml Nebu, 2.5 MG INH PRN PRN for SOB/COUGH, (Reported) Benzonatate (Benzonatate) 200 Mg Capsule, 200 MG PO TID PRN for COUGH, #30 Levalbuterol Tartrate (Levalbuterol Tartrate Hfa) 15 Gm Hfa.aer.ad, 2 PUFF INH Q4-6HP PRN for WHEEZING for 30 Days, #15 Miscellaneous Medications Pentoxifylline (Pentoxifylline) 400 Mg Tablet.er, (Reported) Ropinirole HCl (Ropinirole HCl) 0.5 Mg Tablet, (Reported) Assessment/Plan COVID-19 All aspects of monoclonal antibodies were discussed with patient. After discussing benefits, risks and alternatives, written consent was obtained. All questions were answered. Out patient monoclonal antibody infusion therapy orders were entered. CC TO: CC TO: Primary Care Provider: PCP,Unknown Referring Provider: Alon Solitario Jun 13, 2021 03:47
[~2021-06-14] VITALS: Ht 170.2 cm; Wt 108.9 kg
[~2021-06-14 12:47] MED LIST changes: +ACETAMINOPHEN TAB 650MG DOSE (2X325MG) PO ONE; +ALBUTEROL 90 MCG/ACT 8GM HFA INHALER INH PRN; +ALBUTEROL SULFATE 2.5 MG/0.5 ML INH NEB SOLN INH PRN; +BAMLANIVIMAB 700 MG, ETESEVIMAB 1,400 MG in NS 250 ML IV ONE; +BENZ200C70 PO; +CASIRIVIMAB/IMDEVIMAB 1,200 MG in NS 250 ML IV ONE; +EPINEPHrine INJ 1 MG/ML 1ML AMP IM PRN; +LEVA45AE INH; +NS 1,000 ML IV SCH; +PENT400T22; +ROPI0.5T3; +diphenhydrAMINE 50MG/ML VIAL (J1200) IV PRN; +methylPREDNISolone 125MG 2ML VIAL IV PRN
[2021-06-14 14:02] VITALS: BP 113/69
[2021-06-14 14:32] VITALS: BP 119/71
[2021-06-14 15:02] VITALS: BP 112/71
[2021-06-14 16:02] VITALS: BP 123/74
== END 2021-06-14 16:02 | disposition home or self-care (01) ==
LOC: M OPCLI4PR 12:47
PROVIDERS: ATTEND Physician Assistant Medical
DX: U07.1 COVID-19 (principal); Z88.0 Allergy status to penicillin; Z88.1 Allergy status to other antibiotic agents; Z88.8 Allergy status to other drugs, medicaments and biological substances

== ENCOUNTER → 2021-07-27 | Outpatient (CLI) | payer OTHER ==
[~2021-07-27] MED LIST changes: -ACETAMINOPHEN TAB 650MG DOSE (2X325MG) PO ONE; -ALBUTEROL 90 MCG/ACT 8GM HFA INHALER INH PRN; -ALBUTEROL SULFATE 2.5 MG/0.5 ML INH NEB SOLN INH PRN; -BAMLANIVIMAB 700 MG, ETESEVIMAB 1,400 MG in NS 250 ML IV ONE; -CASIRIVIMAB/IMDEVIMAB 1,200 MG in NS 250 ML IV ONE; -EPINEPHrine INJ 1 MG/ML 1ML AMP IM PRN; -NS 1,000 ML IV SCH; -diphenhydrAMINE 50MG/ML VIAL (J1200) IV PRN; -methylPREDNISolone 125MG 2ML VIAL IV PRN
[2021-07-27 13:13] LABS: HEMATOCRIT 41.9 % (36.0-47.0); HEMOGLOBIN 13.1 g/dl (12.0-15.5); MEAN CORPUSCULAR HEMOGLOBIN 27.6 pg (27.0-33.0); MEAN CORPUSCULAR HGB CONC 31.3 g/dl (32.0-36.5); MEAN CORPUSCULAR VOLUME 88.2 fl (80.0-96.0); PLATELET COUNT, AUTOMATED 274 10^3/uL (150-450); RED BLOOD COUNT 4.75 10^6/uL (4.00-5.40); WHITE BLOOD COUNT 4.4 10^3/uL (4.0-10.0)
[2021-07-27 13:37] LABS: ALBUMIN 3.4 GM/DL (3.2-5.2); ALT/SGPT 30 U/L (12-78); BILIRUBIN,TOTAL 0.4 MG/DL (0.2-1.0); BLOOD UREA NITROGEN 13 MG/DL (7-18); CALCIUM LEVEL 9.6 MG/DL (8.8-10.2); CARBON DIOXIDE LEVEL 31 MEQ/L (21-32); CHLORIDE LEVEL 107 MEQ/L (98-107); CREATININE FOR GFR 0.72 MG/DL (0.55-1.30); GLOMERULAR FILTRATION RATE > 60.0 (>45); GLUCOSE, FASTING 90 MG/DL (70-100); NT-PRO BNP 18 PG/ML (<125); POTASSIUM SERUM 3.9 MEQ/L (3.5-5.1); SODIUM LEVEL 140 MEQ/L (136-145)
== END ==
LOC: M CARPUL 11:56
PROVIDERS: ATTEND Physician Assistant
DX: R00.0 Tachycardia, unspecified (principal); I35.0 Nonrheumatic aortic (valve) stenosis; R06.02 Shortness of breath; Z86.16 Personal history of COVID-19

== ENCOUNTER → 2021-08-02 | Outpatient (CLI) | payer OTHER | LOC: M RAD 11:19 | PROVIDERS: ATTEND Physician Assistant | DX: R60.0 Localized edema (principal) ==

== ENCOUNTER 2021-08-17 14:20 | Outpatient (RCR) | payer OTHER | END 2021-09-14 | LOC: M PT 14:20 | PROVIDERS: ATTEND Physician Assistant | DX: I89.0 Lymphedema, not elsewhere classified (principal) ==

== ENCOUNTER → 2021-09-22 | Outpatient (REF) | payer OTHER ==
[~2021-09-22] MED LIST changes: +CYCL5TAB PO; +GABA-282 PO; +ROSU20TA5; +XIID5DRO
== END ==
LOC: M SFHCDERM 18:43
PROVIDERS: ATTEND Dermatology
DX: L90.5 Scar conditions and fibrosis of skin (principal)

== ENCOUNTER 2021-10-10 00:41 | Emergency (ER) | payer OTHER ==
[~2021-10-10] VITALS: Ht 170.2 cm; Wt 112.6 kg
[2021-10-10] MEDS ORDERED: REST0.05 OD (00:58)
[2021-10-10] MEDS ORDERED: NORCO, ANEXSIA 5/325MG TABLET (HYDROcodone/ACETAMINOPHEN) PO ONE (04:30)
[2021-10-10] MEDS ORDERED: LIDOCAINE 2% MDV 20ML VIAL SC ONE (04:30)
[2021-10-10] MEDS ORDERED: BOOSTRIX/ADACEL VACCINE (DIPHTH/PERTUSS/ACELL/TETANUS) 0.5ML SYR IM ONE (04:55)
[2021-10-10] MEDS ORDERED: AUGMENTIN 875 MG TAB PO ONE (05:30)
[2021-10-10] MEDS ORDERED: AMOX875T2 PO (06:03)
[2021-10-10] MEDS ORDERED: HYDR-4571 PO (06:03)
[2021-10-10 06:45] VITALS: BP 133/86
== END 2021-10-10 06:47 | disposition home or self-care (01) ==
LOC: M ED 00:41
DX: S51.811A Laceration without foreign body of right forearm, initial encounter (principal); W54.0XXA Bitten by dog, initial encounter; Y92.018 Other place in single-family (private) house as the place of occurrence of the external cause; Z88.0 Allergy status to penicillin; Z88.1 Allergy status to other antibiotic agents; Z88.5 Allergy status to narcotic agent; Z88.8 Allergy status to other drugs, medicaments and biological substances; Z79.899 Other long term (current) drug therapy; Z79.82 Long term (current) use of aspirin

== ENCOUNTER 2021-10-13 09:39 | Emergency (ER) | payer OTHER ==
[~2021-10-13] VITALS: Ht 170.2 cm; Wt 113.1 kg
[~2021-10-13 09:39] MED LIST changes: +AMOX875T2 PO; +HYDR-4571 PO; +REST0.05 OD
[2021-10-13] MEDS ORDERED: BACITRACIN OINTMENT 30GM TUBE TOP ONE (13:30)
[2021-10-13] MEDS ORDERED: BACIOIN5 OP (15:00)
[2021-10-13] MEDS ORDERED: BENZ200C70 PO (15:04)
[2021-10-13 15:17] VITALS: BP 153/90
== END 2021-10-13 15:20 | disposition home or self-care (01) ==
LOC: M ED 09:39
DX: J06.9 Acute upper respiratory infection, unspecified (principal)

== ENCOUNTER 2021-10-17 16:11 | Emergency (ER) | payer OTHER ==
[~2021-10-17] VITALS: Ht 170.2 cm; Wt 112.3 kg
[2021-10-17] MEDS ORDERED: AMPICILLIN SOD/SULBACTAM SOD 3 GM in D5W MINI-BAG PLUS 100 ML IV ONE (20:25)
[2021-10-17 22:13] VITALS: BP 136/89
== END 2021-10-17 22:17 | disposition home or self-care (01) ==
LOC: M ED 16:11
DX: Z48.02 Encounter for removal of sutures (principal); S59.911D Unspecified injury of right forearm, subsequent encounter; W54.0XXD Bitten by dog, subsequent encounter; Y92.89 Other specified places as the place of occurrence of the external cause; Z79.2 Long term (current) use of antibiotics; Z79.899 Other long term (current) drug therapy; Z79.82 Long term (current) use of aspirin
CPT/HCPCS: 76882; 96365; 99284; J0295

== ENCOUNTER → 2021-10-17 | Outpatient (CLI) | payer OTHER ==
[~2021-10-17] MED LIST changes: +BACIOIN5 OP
[2021-10-17 11:07] LABS: BASO % 0.9 % (0.0-1.0); EOS # 0.2 10^3/uL (0.0-0.5); HEMATOCRIT 42.1 % (36.0-47.0); HEMOGLOBIN 13.6 g/dl (12.0-15.5); LYMPH # 1.4 10^3/uL (1.5-5.0); LYMPH % 32.6 % (24.0-44.0); MEAN CORPUSCULAR HEMOGLOBIN 27.8 pg (27.0-33.0); MEAN CORPUSCULAR HGB CONC 32.3 g/dl (32.0-36.5); MEAN CORPUSCULAR VOLUME 86.1 fl (80.0-96.0); MONO # 0.4 10^3/uL (0.0-0.8); MONO % 8.5 % (2.0-8.0); NEUTROPHILS # 2.3 10^3/uL (1.5-8.5); NEUTROPHILS % 53.8 % (36.0-66.0); PLATELET COUNT, AUTOMATED 249 10^3/uL (150-450); RED BLOOD COUNT 4.89 10^6/uL (4.00-5.40); WHITE BLOOD COUNT 4.2 10^3/uL (4.0-10.0)
[2021-10-17 11:28] LABS: ERYTHROCYTE SEDIMENTATION RATE 22 mm/hr (0-30)
[2021-10-17 11:31] LABS: ALBUMIN 3.6 GM/DL (3.2-5.2); ALT/SGPT 28 U/L (12-78); BILIRUBIN,TOTAL 0.3 MG/DL (0.2-1.0); BLOOD UREA NITROGEN 16 MG/DL (7-18); CALCIUM LEVEL 9.7 MG/DL (8.8-10.2); CARBON DIOXIDE LEVEL 31 MEQ/L (21-32); CHLORIDE LEVEL 105 MEQ/L (98-107); CREATININE FOR GFR 0.76 MG/DL (0.55-1.30); GLOMERULAR FILTRATION RATE > 60.0 (>45); GLUCOSE, FASTING 96 MG/DL (70-100); POTASSIUM SERUM 3.9 MEQ/L (3.5-5.1); SODIUM LEVEL 139 MEQ/L (136-145); TOTAL PROTEIN 6.6 GM/DL (6.4-8.2)
== END ==
LOC: M LAB 10:23
PROVIDERS: ATTEND Family Medicine
DX: L03.90 Cellulitis, unspecified (principal); W54.0XXA Bitten by dog, initial encounter; Y92.9 Unspecified place or not applicable; Y93.9 Activity, unspecified; Y99.9 Unspecified external cause status

== ENCOUNTER → 2021-10-18 | Outpatient (REF) | payer OTHER | LOC: M LAB REF 19:45 | PROVIDERS: ATTEND Physician Assistant | DX: J06.9 Acute upper respiratory infection, unspecified (principal) ==

== ENCOUNTER → 2021-10-19 | Outpatient (CLI) | payer OTHER | LOC: M RAD 12:24 | PROVIDERS: ATTEND Physician Assistant | DX: R05.9 Cough, unspecified (principal); R06.02 Shortness of breath ==

== ENCOUNTER → 2021-11-16 | Outpatient (CLI) | payer OTHER ==
[~2021-11-16] MED LIST changes: +ALBU2.5V10 INH; -ALBU83IN INH
== END ==
LOC: M RAD 10:16
PROVIDERS: ATTEND Family Medicine
DX: E05.20 Thyrotoxicosis with toxic multinodular goiter without thyrotoxic crisis or storm (principal)

== ENCOUNTER 2022-02-12 15:45 | Outpatient (RCR) | payer OTHER ==
[~2022-02-12 15:45] MED LIST changes: +SIMV-253 PO; -ZOCO20TA PO
== END 2022-02-14 ==
LOC: M PT 15:45
PROVIDERS: ATTEND Physician Assistant
DX: I89.0 Lymphedema, not elsewhere classified (principal)

== ENCOUNTER → 2022-03-08 | Outpatient (CLI) | payer OTHER ==
[2022-03-08 17:09] LABS: BASO % 0.6 % (0.0-1.0); EOS # 0.1 10^3/uL (0.0-0.5); EOS % 2.3 % (0.0-3.0); HEMATOCRIT 43.9 % (36.0-47.0); HEMOGLOBIN 13.8 g/dl (12.0-15.5); LYMPH # 1.4 10^3/uL (1.5-5.0); LYMPH % 29.3 % (24.0-44.0); MEAN CORPUSCULAR HEMOGLOBIN 27.4 pg (27.0-33.0); MEAN CORPUSCULAR HGB CONC 31.4 g/dl (32.0-36.5); MEAN CORPUSCULAR VOLUME 87.1 fl (80.0-96.0); MONO # 0.4 10^3/uL (0.0-0.8); MONO % 8.2 % (2.0-8.0); NEUTROPHILS # 2.8 10^3/uL (1.5-8.5); NEUTROPHILS % 59.4 % (36.0-66.0); PLATELET COUNT, AUTOMATED 256 10^3/uL (150-450); RED BLOOD COUNT 5.04 10^6/uL (4.00-5.40); WHITE BLOOD COUNT 4.8 10^3/uL (4.0-10.0)
[2022-03-08 17:48] LABS: ALBUMIN 3.8 GM/DL (3.2-5.2); ALT/SGPT 28 U/L (12-78); BILIRUBIN,TOTAL 0.4 MG/DL (0.2-1.0); BLOOD UREA NITROGEN 16 MG/DL (7-18); CALCIUM LEVEL 9.4 MG/DL (8.8-10.2); CARBON DIOXIDE LEVEL 30 MEQ/L (21-32); CHLORIDE LEVEL 105 MEQ/L (98-107); CREATININE FOR GFR 0.76 MG/DL (0.55-1.30); FERRITIN 20 NG/ML (8-252); FREE T4 1.13 NG/DL (0.76-1.46); GLOMERULAR FILTRATION RATE > 60.0 (>45); GLUCOSE, FASTING 94 MG/DL (70-100); NT-PRO BNP 23 PG/ML (<125); POTASSIUM SERUM 3.9 MEQ/L (3.5-5.1); SODIUM LEVEL 138 MEQ/L (136-145); THYROID STIMULATING HORMONE < 0.005 uIU/ML (0.358-3.740); TOTAL PROTEIN 7.2 GM/DL (6.4-8.2)
[2022-03-08 18:22] LABS: TOTAL 25(OH) VITAMIN D 33.4 NG/ML (30.0-100.0)
[2022-03-08 18:23] LABS: PTH INTACT 55.7 PG/ML (18.5-88.0)
== END ==
LOC: M PLALAB 15:22
PROVIDERS: ATTEND Family Medicine
DX: R05.9 Cough, unspecified (principal); E55.9 Vitamin D deficiency, unspecified; E61.1 Iron deficiency; E05.20 Thyrotoxicosis with toxic multinodular goiter without thyrotoxic crisis or storm

== ENCOUNTER 2022-03-14 12:15 | Outpatient (RCR) | payer OTHER | END 2022-03-16 | LOC: M PT 12:15 | PROVIDERS: ATTEND Physician Assistant | DX: I89.0 Lymphedema, not elsewhere classified (principal) ==

== ENCOUNTER 2022-04-03 09:47 | Outpatient (RCR) | payer OTHER | END 2022-04-16 23:59 | disposition home or self-care (01) | LOC: M PT 09:47 | PROVIDERS: ATTEND Physician Assistant | DX: I89.0 Lymphedema, not elsewhere classified (principal) ==

== ENCOUNTER 2022-04-17 15:00 | Outpatient (RCR) | payer OTHER | END 2022-05-16 | LOC: M PT 15:00 | PROVIDERS: ATTEND Physician Assistant | DX: I89.0 Lymphedema, not elsewhere classified (principal) ==

== ENCOUNTER → 2022-05-21 | Outpatient (CLI) | payer OTHER ==
[2022-05-21 18:13] LABS: BASO % 0.2 % (0.0-1.0); HEMATOCRIT 43.5 % (36.0-47.0); HEMOGLOBIN 13.3 g/dl (12.0-15.5); LYMPH # 0.6 10^3/uL (1.5-5.0); MEAN CORPUSCULAR HEMOGLOBIN 26.9 pg (27.0-33.0); MEAN CORPUSCULAR HGB CONC 30.6 g/dl (32.0-36.5); MEAN CORPUSCULAR VOLUME 87.9 fl (80.0-96.0); MONO # 0.2 10^3/uL (0.0-0.8); MONO % 3.9 % (2.0-8.0); NEUTROPHILS # 4.5 10^3/uL (1.5-8.5); NEUTROPHILS % 83.3 % (36.0-66.0); PLATELET COUNT, AUTOMATED 267 10^3/uL (150-450); RED BLOOD COUNT 4.95 10^6/uL (4.00-5.40); WHITE BLOOD COUNT 5.3 10^3/uL (4.0-10.0)
[2022-05-21 18:45] LABS: ERYTHROCYTE SEDIMENTATION RATE 13 mm/hr (0-30)
== END ==
LOC: M PLAIMG 16:02
PROVIDERS: ATTEND Physician Assistant Medical
DX: R05.9 Cough, unspecified (principal)

== ENCOUNTER → 2022-05-29 | Outpatient (CLI) | payer OTHER ==
[2022-05-29 14:08] LABS: BASO % 0.1 % (0.0-1.0); HEMATOCRIT 43.1 % (36.0-47.0); LYMPH # 0.9 10^3/uL (1.5-5.0); LYMPH % 12.8 % (24.0-44.0); MEAN CORPUSCULAR HEMOGLOBIN 26.2 pg (27.0-33.0); MEAN CORPUSCULAR HGB CONC 30.2 g/dl (32.0-36.5); MEAN CORPUSCULAR VOLUME 86.7 fl (80.0-96.0); MONO # 0.5 10^3/uL (0.0-0.8); MONO % 6.6 % (2.0-8.0); NEUTROPHILS # 5.8 10^3/uL (1.5-8.5); NEUTROPHILS % 79.9 % (36.0-66.0); PLATELET COUNT, AUTOMATED 279 10^3/uL (150-450); RED BLOOD COUNT 4.97 10^6/uL (4.00-5.40); WHITE BLOOD COUNT 7.3 10^3/uL (4.0-10.0)
[2022-05-29 14:40] LABS: C REACTIVE PROTEIN QUANTITATIV < 0.40 MG/DL (<1.0)
[2022-05-29 14:41] LABS: FREE T4 1.74 NG/DL (0.89-1.76)
[2022-05-29 14:42] LABS: ERYTHROCYTE SEDIMENTATION RATE 12 mm/hr (0-30); THYROID STIMULATING HORMONE 0.008 uIU/ML (0.55-4.78)
== END ==
LOC: M PLALAB 11:30
PROVIDERS: ATTEND Physician Assistant Medical
DX: J01.10 Acute frontal sinusitis, unspecified (principal); E05.20 Thyrotoxicosis with toxic multinodular goiter without thyrotoxic crisis or storm

== ENCOUNTER → 2022-06-05 | Outpatient (CLI) | payer OTHER | LOC: M PLAIMG 09:58 | PROVIDERS: ATTEND Physician Assistant Medical | DX: M25.551 Pain in right hip (principal) ==

== ENCOUNTER → 2022-06-21 | Outpatient (CLI) | payer OTHER ==
[~2022-06-21] MED LIST changes: +METHACHOLINE KIT INH ONE
== END ==
LOC: M CARPUL 09:39
PROVIDERS: ATTEND Nurse Practitioner Adult Health
DX: Z53.9 Procedure and treatment not carried out, unspecified reason (principal)

== ENCOUNTER → 2022-07-17 | Outpatient (CLI) | payer OTHER | LOC: M CARPUL 12:49 | PROVIDERS: ATTEND Nurse Practitioner Adult Health | DX: R05.9 Cough, unspecified (principal); Z53.9 Procedure and treatment not carried out, unspecified reason ==

== ENCOUNTER → 2022-07-31 | Outpatient (CLI) | payer MEDICARE, OTHER | LOC: M CARPUL 08:05 | PROVIDERS: ATTEND Nurse Practitioner Adult Health | DX: R05.9 Cough, unspecified (principal) | CPT/HCPCS: 94070; 95070; J7674 ==

== ENCOUNTER → 2022-08-02 | Outpatient (REF) | payer MEDICARE, OTHER ==
[~2022-08-02] MED LIST changes: -METHACHOLINE KIT INH ONE
== END ==
LOC: M SFHCWAGY 17:33
PROVIDERS: ATTEND Nurse Practitioner Family
DX: Z12.4 Encounter for screening for malignant neoplasm of cervix (principal); N95.2 Postmenopausal atrophic vaginitis
CPT/HCPCS: 87624; G0123

== ENCOUNTER → 2022-08-13 | Outpatient (CLI) | payer MEDICARE, OTHER | LOC: M WHC 13:58 | PROVIDERS: ATTEND Nurse Practitioner Family | DX: Z12.31 Encounter for screening mammogram for malignant neoplasm of breast (principal) ==

== ENCOUNTER → 2022-08-27 | Outpatient (CLI) | payer MEDICARE, OTHER ==
[2022-08-27 16:12] LABS: BASO % 0.6 % (0.0-1.0); EOS # 0.2 10^3/uL (0.0-0.5); EOS % 4.4 % (0.0-3.0); LYMPH # 1.4 10^3/uL (1.5-5.0); LYMPH % 26.4 % (24.0-44.0); MEAN CORPUSCULAR HEMOGLOBIN 27.7 pg (27.0-33.0); MEAN CORPUSCULAR VOLUME 89.6 fl (80.0-96.0); MONO # 0.4 10^3/uL (0.0-0.8); NEUTROPHILS # 3.3 10^3/uL (1.5-8.5); NEUTROPHILS % 61.4 % (36.0-66.0); PLATELET COUNT, AUTOMATED 227 10^3/uL (150-450); RED BLOOD COUNT 4.69 10^6/uL (4.00-5.40); WHITE BLOOD COUNT 5.4 10^3/uL (4.0-10.0)
[2022-08-27 16:50] LABS: ALBUMIN 3.6 G/DL (3.2-5.2); ALKALINE PHOSPHATASE 82 U/L (46-116); ALT/SGPT 17 U/L (7.0-40); AST/SGOT 23 U/L (<34); BILIRUBIN,TOTAL 0.6 MG/DL (0.3-1.2); BLOOD UREA NITROGEN 21 MG/DL (9-23); CALCIUM LEVEL 9.4 MG/DL (8.3-10.6); CARBON DIOXIDE LEVEL 29 MMOL/L (20-31); CHLORIDE LEVEL 105 MMOL/L (98-107); CHOLESTEROL LEVEL 163 MG/DL (<200); CHOLESTEROL RISK RATIO 2.45 (<5); CREATININE FOR GFR 0.75 MG/DL (0.55-1.30); FERRITIN 16.4 NG/ML (7.3-270.7); FREE T4 0.66 NG/DL (0.89-1.76); GLOMERULAR FILTRATION RATE > 60.0 (>45); GLUCOSE, FASTING 86 MG/DL (74-106); HDL CHOLESTEROL 66.5 MG/DL (>40); LDL CHOLESTEROL 74.1 MG/DL (<100); NON-HDL-C 96.5 MG/DL; POTASSIUM SERUM 4.5 MMOL/L (3.5-5.1); PTH INTACT 50.2 PG/ML (18.5-88.0); SODIUM LEVEL 138 MMOL/L (136-145); THYROID STIMULATING HORMONE 0.113 uIU/ML (0.55-4.78); TOTAL 25(OH) VITAMIN D 34.5 NG/ML (20.0-100.0); TOTAL PROTEIN 6.2 G/DL (5.7-8.2); TRIGLYCERIDES LEVEL 112 MG/DL (<150)
[2022-08-27 17:05] LABS: HEMOGLOBIN A1c 5.8 % (4.0-6.0)
== END ==
LOC: M PLALAB 12:57
PROVIDERS: ATTEND Family Medicine
DX: E61.1 Iron deficiency (principal); E55.9 Vitamin D deficiency, unspecified; R73.01 Impaired fasting glucose; E05.20 Thyrotoxicosis with toxic multinodular goiter without thyrotoxic crisis or storm; Z79.899 Other long term (current) drug therapy

== ENCOUNTER → 2022-08-29 | Outpatient (CLI) | payer MEDICARE, OTHER | LOC: M PLAIMG 12:38 | PROVIDERS: ATTEND Family Medicine | DX: M21.41 Flat foot [pes planus] (acquired), right foot (principal) ==

== ENCOUNTER → 2022-09-03 | Outpatient (CLI) | payer MEDICARE, OTHER ==
[2022-09-03 16:02] LABS: FREE T4 0.65 NG/DL (0.89-1.76)
[2022-09-03 16:03] LABS: THYROID STIMULATING HORMONE 0.211 uIU/ML (0.55-4.78)
== END ==
LOC: M PLALAB 14:16
PROVIDERS: ATTEND Family Medicine
DX: E05.20 Thyrotoxicosis with toxic multinodular goiter without thyrotoxic crisis or storm (principal)

== ENCOUNTER → 2022-09-06 | Outpatient (CLI) | payer MEDICARE, OTHER | LOC: M PLAIMG 12:53 | PROVIDERS: ATTEND Family Medicine | DX: M79.672 Pain in left foot (principal) ==

== ENCOUNTER 2022-09-11 09:01 | Outpatient (RCR) | payer MEDICARE, OTHER | END 2022-09-14 | LOC: M PT 09:01 | PROVIDERS: ATTEND Physician Assistant | DX: I89.0 Lymphedema, not elsewhere classified (principal) ==

== ENCOUNTER 2022-10-01 09:17 | Outpatient (RCR) | payer MEDICARE, OTHER | END 2022-10-14 | LOC: M PT 09:17 | PROVIDERS: ATTEND Physician Assistant | DX: I89.0 Lymphedema, not elsewhere classified (principal) ==

== ENCOUNTER → 2022-11-02 | Outpatient (CLI) | payer MEDICARE, OTHER | LOC: M PLARAD 09:41 | PROVIDERS: ATTEND Nurse Practitioner Family | DX: M46.1 Sacroiliitis, not elsewhere classified (principal); M43.06 Spondylolysis, lumbar region ==

== ENCOUNTER → 2022-12-19 | Outpatient (REF) | payer MEDICARE, OTHER ==
[~2022-12-19] MED LIST changes: -ROSU20TA5; +ROSU20TA61
== END ==
LOC: M SFHCPLAZ 14:57
PROVIDERS: ATTEND Physician Assistant
DX: R09.89 Other specified symptoms and signs involving the circulatory and respiratory systems (principal)

== ENCOUNTER → 2023-02-14 | Outpatient (CLI) | payer MEDICARE, OTHER ==
[~2023-02-14] MED LIST changes: -GABA-283 PO; +GABA-284 PO; +ISOVUE-370 76% 100ML VIAL As Ordered ONE; -ROPI0.5T3; +ROPI0.5T33
[2023-02-14 11:07] LABS: HEMATOCRIT 44.8 % (36.0-47.0); HEMOGLOBIN 14.3 g/dl (12.0-15.5); MEAN CORPUSCULAR HEMOGLOBIN 27.7 pg (27.0-33.0); MEAN CORPUSCULAR HGB CONC 31.9 g/dl (32.0-36.5); MEAN CORPUSCULAR VOLUME 86.8 fl (80.0-96.0); PLATELET COUNT, AUTOMATED 286 10^3/uL (150-450); RED BLOOD COUNT 5.16 10^6/uL (4.00-5.40); WHITE BLOOD COUNT 7.7 10^3/uL (4.0-10.0)
[2023-02-14 11:33] LABS: ALBUMIN 4.1 G/DL (3.2-5.2); ALKALINE PHOSPHATASE 99 U/L (46-116); ALT/SGPT 22 U/L (7.0-40); AST/SGOT 18 U/L (<34); BILIRUBIN,TOTAL 0.4 MG/DL (0.3-1.2); BLOOD UREA NITROGEN 15 MG/DL (9-23); CALCIUM LEVEL 10.2 MG/DL (8.3-10.6); CARBON DIOXIDE LEVEL 27 MMOL/L (20-31); CHLORIDE LEVEL 108 MMOL/L (98-107); CREATININE FOR GFR 0.66 MG/DL (0.55-1.30); GLOMERULAR FILTRATION RATE > 60.0 (>45); GLUCOSE, FASTING 113 MG/DL (74-106); SODIUM LEVEL 143 MMOL/L (136-145); TOTAL PROTEIN 7.2 G/DL (5.7-8.2)
== END ==
LOC: M RAD 10:25
PROVIDERS: ATTEND Nurse Practitioner Adult Health
DX: J98.11 Atelectasis (principal); R91.1 Solitary pulmonary nodule; K76.0 Fatty (change of) liver, not elsewhere classified; K80.20 Calculus of gallbladder without cholecystitis without obstruction; R06.02 Shortness of breath
CPT/HCPCS: 36415; 71275; 80053; 83880; 85027; 85379; Q9967

== ENCOUNTER → 2023-02-22 | Outpatient (CLI) | payer MEDICARE ==
[~2023-02-22] MED LIST changes: -ISOVUE-370 76% 100ML VIAL As Ordered ONE; +LORA-1041 PO; -LORA-674 PO
== END ==
LOC: M WHC 13:56
PROVIDERS: ATTEND Family Medicine
DX: Z00.00 Encounter for general adult medical examination without abnormal findings (principal); I89.0 Lymphedema, not elsewhere classified; R60.0 Localized edema; K80.20 Calculus of gallbladder without cholecystitis without obstruction; L98.6 Other infiltrative disorders of the skin and subcutaneous tissue; E05.20 Thyrotoxicosis with toxic multinodular goiter without thyrotoxic crisis or storm; M21.41 Flat foot [pes planus] (acquired), right foot; J45.30 Mild persistent asthma, uncomplicated; I25.10 Atherosclerotic heart disease of native coronary artery without angina pectoris; I11.0 Hypertensive heart disease with heart failure; K59.00 Constipation, unspecified; F51.04 Psychophysiologic insomnia; I50.32 Chronic diastolic (congestive) heart failure; R05.9 Cough, unspecified; E61.1 Iron deficiency; G89.4 Chronic pain syndrome; A60.00 Herpesviral infection of urogenital system, unspecified; E78.2 Mixed hyperlipidemia; G47.33 Obstructive sleep apnea (adult) (pediatric); M50.30 Other cervical disc degeneration, unspecified cervical region; R73.01 Impaired fasting glucose; M47.816 Spondylosis without myelopathy or radiculopathy, lumbar region; R00.2 Palpitations; I87.2 Venous insufficiency (chronic) (peripheral); G25.81 Restless legs syndrome; F32.9 Major depressive disorder, single episode, unspecified; J30.89 Other allergic rhinitis; M12.819 Other specific arthropathies, not elsewhere classified, unspecified shoulder; R13.19 Other dysphagia; E53.8 Deficiency of other specified B group vitamins; M05.79 Rheumatoid arthritis with rheumatoid factor of multiple sites without organ or systems involvement; E66.3 Overweight; E55.9 Vitamin D deficiency, unspecified; D72.819 Decreased white blood cell count, unspecified; K21.9 Gastro-esophageal reflux disease without esophagitis; Z85.820 Personal history of malignant melanoma of skin; Z12.39 Encounter for other screening for malignant neoplasm of breast; Z88.1 Allergy status to other antibiotic agents
CPT/HCPCS: 93970; G0463

== ENCOUNTER → 2023-02-22 | Outpatient (REF) | payer MEDICARE | LOC: M SFHCPLAZ 13:27 | PROVIDERS: ATTEND Family Medicine | DX: E05.20 Thyrotoxicosis with toxic multinodular goiter without thyrotoxic crisis or storm (principal); K21.9 Gastro-esophageal reflux disease without esophagitis; E61.1 Iron deficiency; E55.9 Vitamin D deficiency, unspecified ==

== ENCOUNTER → 2023-02-23 | Outpatient (CLI) | payer MEDICARE ==
[2023-02-23 12:10] LABS: BASO % 0.8 % (0.0-1.0); EOS # 0.3 10^3/uL (0.0-0.5); EOS % 6.3 % (0.0-3.0); HEMATOCRIT 43.1 % (36.0-47.0); HEMOGLOBIN 13.7 g/dl (12.0-15.5); LYMPH # 1.1 10^3/uL (1.5-5.0); LYMPH % 22.5 % (24.0-44.0); MEAN CORPUSCULAR HEMOGLOBIN 27.8 pg (27.0-33.0); MEAN CORPUSCULAR HGB CONC 31.8 g/dl (32.0-36.5); MEAN CORPUSCULAR VOLUME 87.6 fl (80.0-96.0); MONO # 0.5 10^3/uL (0.0-0.8); MONO % 9.8 % (2.0-8.0); NEUTROPHILS # 2.9 10^3/uL (1.5-8.5); NEUTROPHILS % 60.2 % (36.0-66.0); PLATELET COUNT, AUTOMATED 223 10^3/uL (150-450); RED BLOOD COUNT 4.92 10^6/uL (4.00-5.40); WHITE BLOOD COUNT 4.9 10^3/uL (4.0-10.0)
[2023-02-23 12:34] LABS: PTH INTACT 51.6 PG/ML (18.5-88.0)
[2023-02-23 12:38] LABS: THYROID STIMULATING HORMONE 1.057 uIU/ML (0.55-4.78)
[2023-02-23 12:39] LABS: FREE T4 0.74 NG/DL (0.89-1.76)
== END ==
LOC: M LAB 11:32
PROVIDERS: ATTEND Family Medicine
DX: E05.20 Thyrotoxicosis with toxic multinodular goiter without thyrotoxic crisis or storm (principal); E61.1 Iron deficiency; E55.9 Vitamin D deficiency, unspecified; K21.9 Gastro-esophageal reflux disease without esophagitis; Z79.899 Other long term (current) drug therapy

== ENCOUNTER 2023-03-28 14:08 | Outpatient (RCR) | payer MEDICARE | END 2023-04-16 | LOC: M PT 14:08 | PROVIDERS: ATTEND Physician Assistant | DX: I89.0 Lymphedema, not elsewhere classified (principal) ==

== ENCOUNTER → 2023-04-09 | Outpatient (CLI) | payer MEDICARE, MEDICAID ==
[~2023-04-09] MED LIST changes: +E-Z-GAS II EFFERVESCENT PACKET (SODIUM BICARB./CITRIC ACID/SIMETHICONE) As Ordered ONE; +E-Z-HD 98% w/w 340GM SUSP BTL As Ordered ONE; +E-Z-PAQUE 96% w/w SUSP 176GM BTL As Ordered ONE
== END ==
LOC: M RAD 08:44
PROVIDERS: ATTEND Family Medicine
DX: K21.9 Gastro-esophageal reflux disease without esophagitis (principal)

== ENCOUNTER → 2023-05-01 | Outpatient (CLI) | payer MEDICARE, MEDICAID ==
[~2023-05-01] MED LIST changes: -E-Z-GAS II EFFERVESCENT PACKET (SODIUM BICARB./CITRIC ACID/SIMETHICONE) As Ordered ONE; -E-Z-HD 98% w/w 340GM SUSP BTL As Ordered ONE; -E-Z-PAQUE 96% w/w SUSP 176GM BTL As Ordered ONE
[2023-05-01 14:25] LABS: BLOOD UREA NITROGEN 17 MG/DL (9-23); CREATININE FOR GFR 0.79 MG/DL (0.55-1.30); GLOMERULAR FILTRATION RATE > 60.0 (>45)
== END ==
LOC: M LAB 12:53
PROVIDERS: ATTEND Pain Medicine Interventional Pain Medicine
DX: M96.1 Postlaminectomy syndrome, not elsewhere classified (principal)

== ENCOUNTER → 2023-05-23 | Outpatient (CLI) | payer MEDICARE, MEDICAID ==
[~2023-05-23] MED LIST changes: +PROHANCE 279.3MG/ML 15ML VIAL ONE; +PROHANCE 279.3MG/ML 5ML VIAL ONE
== END ==
LOC: M PLAIMG 09:56
PROVIDERS: ATTEND Pain Medicine Interventional Pain Medicine
DX: M96.1 Postlaminectomy syndrome, not elsewhere classified (principal); M54.16 Radiculopathy, lumbar region; M48.061 Spinal stenosis, lumbar region without neurogenic claudication
CPT/HCPCS: 72148; 72156; A9576

== ENCOUNTER → 2023-05-30 | Outpatient (REF) | payer MEDICARE ==
[~2023-05-30] MED LIST changes: -PROHANCE 279.3MG/ML 15ML VIAL ONE; -PROHANCE 279.3MG/ML 5ML VIAL ONE
== END ==
LOC: M SFHCPLAZ 16:32
PROVIDERS: ATTEND Family Medicine
DX: E61.1 Iron deficiency (principal); R73.01 Impaired fasting glucose; M05.79 Rheumatoid arthritis with rheumatoid factor of multiple sites without organ or systems involvement; E05.20 Thyrotoxicosis with toxic multinodular goiter without thyrotoxic crisis or storm

== ENCOUNTER → 2023-06-12 | Outpatient (CLI) | payer MEDICARE ==
[2023-06-12 14:54] LABS: EOS # 0.1 10^3/uL (0.0-0.5); EOS % 3.3 % (0.0-3.0); HEMATOCRIT 44.3 % (36.0-47.0); HEMOGLOBIN 13.9 g/dl (12.0-15.5); LYMPH # 1.2 10^3/uL (1.5-5.0); LYMPH % 29.3 % (24.0-44.0); MEAN CORPUSCULAR HEMOGLOBIN 27.4 pg (27.0-33.0); MEAN CORPUSCULAR HGB CONC 31.4 g/dl (32.0-36.5); MEAN CORPUSCULAR VOLUME 87.2 fl (80.0-96.0); MONO # 0.3 10^3/uL (0.0-0.8); MONO % 6.4 % (2.0-8.0); NEUTROPHILS # 2.4 10^3/uL (1.5-8.5); NEUTROPHILS % 59.7 % (36.0-66.0); PLATELET COUNT, AUTOMATED 255 10^3/uL (150-450); RED BLOOD COUNT 5.08 10^6/uL (4.00-5.40); WHITE BLOOD COUNT 3.9 10^3/uL (4.0-10.0)
[2023-06-12 15:05] LABS: ERYTHROCYTE SEDIMENTATION RATE 33 mm/hr (0-30)
[2023-06-12 15:14] LABS: C REACTIVE PROTEIN QUANTITATIV < 0.40 MG/DL (<1.0)
[2023-06-12 15:17] LABS: FERRITIN 12.8 NG/ML (7.3-270.7); FREE T4 0.84 NG/DL (0.89-1.76); THYROID STIMULATING HORMONE 0.379 uIU/ML (0.55-4.78)
[2023-06-12 15:31] LABS: HEMOGLOBIN A1c 5.7 % (4.0-6.0)
== END ==
LOC: M LAB 13:54
PROVIDERS: ATTEND Family Medicine
DX: E61.1 Iron deficiency (principal); R73.01 Impaired fasting glucose; M05.79 Rheumatoid arthritis with rheumatoid factor of multiple sites without organ or systems involvement; E05.20 Thyrotoxicosis with toxic multinodular goiter without thyrotoxic crisis or storm

== ENCOUNTER → 2023-06-14 | Outpatient (CLI) | payer MEDICARE | LOC: M WHC 11:49 | PROVIDERS: ATTEND Family Medicine | DX: N39.41 Urge incontinence (principal) ==

== ENCOUNTER → 2023-08-09 | Outpatient (CLI) | payer MEDICARE, MEDICAID ==
[2023-08-09 17:40] LABS: THYROID STIMULATING HORMONE 1.231 uIU/ML (0.55-4.78)
[2023-08-09 17:42] LABS: ALBUMIN 3.3 G/DL (3.2-5.2); ALKALINE PHOSPHATASE 79 U/L (46-116); ALT/SGPT 24 U/L (7.0-40); AST/SGOT 21 U/L (<34); BILIRUBIN,TOTAL 0.3 MG/DL (0.3-1.2); BLOOD UREA NITROGEN 16 MG/DL (9-23); CALCIUM LEVEL 9.1 MG/DL (8.3-10.6); CARBON DIOXIDE LEVEL 28 MMOL/L (20-31); CHLORIDE LEVEL 110 MMOL/L (98-107); CREATININE FOR GFR 0.82 MG/DL (0.55-1.30); FERRITIN 14.8 NG/ML (7.3-270.7); GLOMERULAR FILTRATION RATE > 60.0 (>45); GLUCOSE, FASTING 101 MG/DL (74-106); IRON (FE) 45 UG/DL (50-170); MAGNESIUM LEVEL 1.9 MG/DL (1.8-2.4); POTASSIUM SERUM 4.2 MMOL/L (3.5-5.1); SODIUM LEVEL 140 MMOL/L (136-145); TOTAL PROTEIN 5.9 G/DL (5.7-8.2)
[2023-08-09 17:43] LABS: FREE T4 0.77 NG/DL (0.89-1.76)
== END ==
LOC: M PLAIMG 15:07
PROVIDERS: ATTEND Student in an Organized Health Care Education/Training Program
DX: R05.3 Chronic cough (principal); D50.9 Iron deficiency anemia, unspecified; E07.9 Disorder of thyroid, unspecified

== ENCOUNTER 2023-08-12 13:36 | Emergency (ER) | payer MEDICARE, MEDICAID ==
[~2023-08-12] VITALS: Ht 170.2 cm; Wt 115.1 kg
[2023-08-12 14:35] LABS: RSV AMPLIFICATION NEGATIVE (NEGATIVE)
[2023-08-12 17:50] VITALS: BP 133/77; TEMP 96.4; O2SAT 96
[2023-08-12] MEDS ORDERED: AMOX875T2 PO (18:15)
== END 2023-08-12 18:21 | disposition home or self-care (01) ==
LOC: M ED 13:36
DX: J41.0 Simple chronic bronchitis (principal); J45.909 Unspecified asthma, uncomplicated; F41.9 Anxiety disorder, unspecified; K21.9 Gastro-esophageal reflux disease without esophagitis; E05.90 Thyrotoxicosis, unspecified without thyrotoxic crisis or storm; Z79.82 Long term (current) use of aspirin; Z79.899 Other long term (current) drug therapy; Z88.0 Allergy status to penicillin; Z98.1 Arthrodesis status; Z88.5 Allergy status to narcotic agent; Z88.8 Allergy status to other drugs, medicaments and biological substances; Z91.040 Latex allergy status

== ENCOUNTER → 2023-08-26 | Outpatient (CLI) | payer MEDICARE, MEDICAID | LOC: M PLAIMG 16:02 | PROVIDERS: ATTEND Nurse Practitioner Adult Health | DX: J45.909 Unspecified asthma, uncomplicated (principal); R05.1 Acute cough ==

== ENCOUNTER → 2023-09-03 | Outpatient (REF) | payer MEDICARE, MEDICAID | LOC: M SFHCDERM 13:57 | PROVIDERS: ATTEND Dermatology | DX: L57.0 Actinic keratosis (principal) ==

== ENCOUNTER → 2023-10-07 | Outpatient (REF) | payer MEDICARE, MEDICAID ==
[2023-10-08 11:06] LABS: BASO # 0.1 10^3/uL (0.0-0.2); EOS # 0.3 10^3/uL (0.0-0.5); EOS % 5.8 % (0.0-3.0); HEMATOCRIT 44.4 % (36.0-47.0); HEMOGLOBIN 13.9 g/dl (12.0-15.5); LYMPH # 1.5 10^3/uL (1.5-5.0); LYMPH % 29.9 % (24.0-44.0); MEAN CORPUSCULAR HEMOGLOBIN 27.5 pg (27.0-33.0); MEAN CORPUSCULAR HGB CONC 31.3 g/dl (32.0-36.5); MEAN CORPUSCULAR VOLUME 87.7 fl (80.0-96.0); MONO # 0.4 10^3/uL (0.0-0.8); MONO % 8.2 % (2.0-8.0); NEUTROPHILS # 2.8 10^3/uL (1.5-8.5); NEUTROPHILS % 54.9 % (36.0-66.0); PLATELET COUNT, AUTOMATED 246 10^3/uL (150-450); RED BLOOD COUNT 5.06 10^6/uL (4.00-5.40)
[2023-10-08 11:14] LABS: ERYTHROCYTE SEDIMENTATION RATE 24 mm/hr (0-30)
[2023-10-08 11:43] LABS: C REACTIVE PROTEIN QUANTITATIV < 0.40 MG/DL (<1.0)
[2023-10-08 11:45] LABS: ALBUMIN 3.7 G/DL (3.2-5.2); ALKALINE PHOSPHATASE 85 U/L (46-116); ALT/SGPT 21 U/L (7.0-40); AST/SGOT 21 U/L (<34); BILIRUBIN,TOTAL 0.4 MG/DL (0.3-1.2); BLOOD UREA NITROGEN 14 MG/DL (9-23); CARBON DIOXIDE LEVEL 28 MMOL/L (20-31); CHLORIDE LEVEL 106 MMOL/L (98-107); CREATININE FOR GFR 0.74 MG/DL (0.55-1.30); FERRITIN 12.1 NG/ML (7.3-270.7); FREE T4 0.72 NG/DL (0.89-1.76); GLOMERULAR FILTRATION RATE > 60.0 (>45); GLUCOSE, FASTING 91 MG/DL (74-106); POTASSIUM SERUM 5.7 MMOL/L (3.5-5.1); SODIUM LEVEL 138 MMOL/L (136-145); THYROID STIMULATING HORMONE 1.655 uIU/ML (0.55-4.78); TOTAL PROTEIN 6.5 G/DL (5.7-8.2); VITAMIN B12 LEVEL 483 PG/ML (211-911)
== END ==
LOC: M LABDRAWP 10:25
PROVIDERS: ATTEND Family Medicine
DX: E61.1 Iron deficiency (principal); I50.32 Chronic diastolic (congestive) heart failure; E53.8 Deficiency of other specified B group vitamins; E05.20 Thyrotoxicosis with toxic multinodular goiter without thyrotoxic crisis or storm; J45.30 Mild persistent asthma, uncomplicated; M05.79 Rheumatoid arthritis with rheumatoid factor of multiple sites without organ or systems involvement

== ENCOUNTER → 2023-10-16 | Outpatient (CLI) | payer MEDICARE, MEDICAID | LOC: M WHC 13:41 | PROVIDERS: ATTEND Family Medicine | DX: Z12.31 Encounter for screening mammogram for malignant neoplasm of breast (principal) ==

== ENCOUNTER 2023-10-21 11:44 | Emergency (ER) | payer MEDICARE, MEDICAID ==
[~2023-10-21] VITALS: Ht 170.2 cm; Wt 109.1 kg
[2023-10-21 18:13] LABS: BASO # 0.1 10^3/uL (0.0-0.2); BASO % 1.2 % (0.0-1.0); EOS # 0.2 10^3/uL (0.0-0.5); EOS % 4.6 % (0.0-3.0); HEMATOCRIT 40.7 % (36.0-47.0); LYMPH # 1.1 10^3/uL (1.5-5.0); LYMPH % 27.3 % (24.0-44.0); MEAN CORPUSCULAR HEMOGLOBIN 27.5 pg (27.0-33.0); MEAN CORPUSCULAR HGB CONC 31.9 g/dl (32.0-36.5); MONO # 0.3 10^3/uL (0.0-0.8); MONO % 7.4 % (2.0-8.0); NEUTROPHILS # 2.5 10^3/uL (1.5-8.5); NEUTROPHILS % 59.3 % (36.0-66.0); PLATELET COUNT, AUTOMATED 246 10^3/uL (150-450); RED BLOOD COUNT 4.73 10^6/uL (4.00-5.40); WHITE BLOOD COUNT 4.2 10^3/uL (4.0-10.0)
[2023-10-21 18:19] LABS: C REACTIVE PROTEIN QUANTITATIV < 0.40 MG/DL (<1.0)
[2023-10-21 18:22] LABS: BLOOD UREA NITROGEN 16 MG/DL (9-23); CALCIUM LEVEL 8.9 MG/DL (8.3-10.6); CARBON DIOXIDE LEVEL 28 MMOL/L (20-31); CHLORIDE LEVEL 108 MMOL/L (98-107); CREATININE FOR GFR 0.73 MG/DL (0.55-1.30); GLOMERULAR FILTRATION RATE > 60.0 (>45); GLUCOSE, FASTING 90 MG/DL (74-106); SODIUM LEVEL 142 MMOL/L (136-145)
[2023-10-21] MEDS ORDERED: AMOX875T2 PO (19:17)
[2023-10-21 19:19] VITALS: BP 173/93; TEMP 96.7; O2SAT 96
[2023-10-21] MEDS: AUGMENTIN 875 MG TAB PO ONE (19:19)
== END 2023-10-21 19:30 | disposition home or self-care (01) ==
LOC: M ED 11:44
DX: L03.116 Cellulitis of left lower limb (principal); I89.0 Lymphedema, not elsewhere classified; E78.5 Hyperlipidemia, unspecified; J45.909 Unspecified asthma, uncomplicated; K21.9 Gastro-esophageal reflux disease without esophagitis; E03.9 Hypothyroidism, unspecified; F41.9 Anxiety disorder, unspecified; M85.80 Other specified disorders of bone density and structure, unspecified site; Z79.82 Long term (current) use of aspirin; Z79.899 Other long term (current) drug therapy; Z88.0 Allergy status to penicillin; Z88.1 Allergy status to other antibiotic agents; Z88.5 Allergy status to narcotic agent; Z88.8 Allergy status to other drugs, medicaments and biological substances; Z91.040 Latex allergy status

== ENCOUNTER 2023-11-14 17:22 | Emergency (ER) | payer MEDICARE, MEDICAID ==
[~2023-11-14] VITALS: Ht 170.2 cm; Wt 116.8 kg
[2023-11-14] MEDS: NORCO, ANEXSIA 5/325MG TABLET (HYDROcodone/ACETAMINOPHEN) PO ONE (18:10)
[2023-11-14] MEDS: KETOROLAC 30 MG/ML 1ML VIAL IV ONE (18:14)
[2023-11-14 18:22] LABS: BASO # 0.1 10^3/uL (0.0-0.2); BASO % 0.9 % (0.0-1.0); EOS # 0.2 10^3/uL (0.0-0.5); EOS % 3.4 % (0.0-3.0); HEMATOCRIT 40.4 % (36.0-47.0); HEMOGLOBIN 13.1 g/dl (12.0-15.5); LYMPH # 1.3 10^3/uL (1.5-5.0); LYMPH % 23.4 % (24.0-44.0); MEAN CORPUSCULAR HEMOGLOBIN 27.7 pg (27.0-33.0); MEAN CORPUSCULAR HGB CONC 32.4 g/dl (32.0-36.5); MEAN CORPUSCULAR VOLUME 85.4 fl (80.0-96.0); MONO # 0.5 10^3/uL (0.0-0.8); MONO % 8.7 % (2.0-8.0); NEUTROPHILS # 3.6 10^3/uL (1.5-8.5); NEUTROPHILS % 63.4 % (36.0-66.0); PLATELET COUNT, AUTOMATED 246 10^3/uL (150-450); RED BLOOD COUNT 4.73 10^6/uL (4.00-5.40); WHITE BLOOD COUNT 5.6 10^3/uL (4.0-10.0)
[2023-11-14 18:48] LABS: LIPASE 41 U/L (12-53)
[2023-11-14 18:51] LABS: ALBUMIN 3.6 G/DL (3.2-5.2); ALKALINE PHOSPHATASE 85 U/L (46-116); ALT/SGPT 23 U/L (7.0-40); AST/SGOT 19 U/L (<34); BILIRUBIN,DIRECT 0.1 MG/DL (<0.4); BILIRUBIN,TOTAL 0.4 MG/DL (0.3-1.2); BLOOD UREA NITROGEN 22 MG/DL (9-23); CALCIUM LEVEL 9.5 MG/DL (8.3-10.6); CARBON DIOXIDE LEVEL 25 MMOL/L (20-31); CHLORIDE LEVEL 109 MMOL/L (98-107); CREATININE FOR GFR 0.75 MG/DL (0.55-1.30); GLOMERULAR FILTRATION RATE > 60.0 (>45); GLUCOSE, FASTING 93 MG/DL (74-106); POTASSIUM SERUM 4.2 MMOL/L (3.5-5.1); SODIUM LEVEL 142 MMOL/L (136-145); TOTAL PROTEIN 6.5 G/DL (5.7-8.2)
[2023-11-14] MEDS ORDERED: ISOVUE-370 76% 100ML VIAL As Ordered ONE (19:00)
[2023-11-14] MEDS ORDERED: KETO10TAB PO (20:55)
[2023-11-14] MEDS ORDERED: CYCL5TAB PO (20:55)
[2023-11-14 21:00] VITALS: BP 153/68; TEMP 97.9; O2SAT 96
[2023-11-14] MEDS: NORCO 5/325MG TABLET (HOME DOSE PACK) PO ONE (21:02)
== END 2023-11-14 21:12 | disposition home or self-care (01) ==
LOC: M ED 17:22
DX: S39.011A Strain of muscle, fascia and tendon of abdomen, initial encounter (principal); X50.0XXA Overexertion from strenuous movement or load, initial encounter; K21.9 Gastro-esophageal reflux disease without esophagitis; E78.5 Hyperlipidemia, unspecified; F41.9 Anxiety disorder, unspecified; Z88.0 Allergy status to penicillin; Z88.1 Allergy status to other antibiotic agents; Z88.5 Allergy status to narcotic agent; Z88.8 Allergy status to other drugs, medicaments and biological substances; Z91.040 Latex allergy status; Z79.52 Long term (current) use of systemic steroids; Z79.2 Long term (current) use of antibiotics; Z79.811 Long term (current) use of aromatase inhibitors; Z79.899 Other long term (current) drug therapy; Y92.9 Unspecified place or not applicable; Y93.9 Activity, unspecified; Y99.9 Unspecified external cause status
CPT/HCPCS: 74177; 80048; 80076; 81001; 83690; 85025; 93041; 96374; 99284; J1885; Q9967

== ENCOUNTER → 2023-11-19 | Outpatient (CLI) | payer MEDICARE, MEDICAID ==
[~2023-11-19] MED LIST changes: +KETO10TAB PO
== END ==
LOC: M WHC 11:44
PROVIDERS: ATTEND Family Medicine
DX: Z12.39 Encounter for other screening for malignant neoplasm of breast (principal); E05.20 Thyrotoxicosis with toxic multinodular goiter without thyrotoxic crisis or storm; M47.816 Spondylosis without myelopathy or radiculopathy, lumbar region

== ENCOUNTER → 2023-11-20 | Outpatient (CLI) | payer MEDICARE, MEDICAID | LOC: M PLAIMG 12:32 | PROVIDERS: ATTEND Family Medicine | DX: M47.816 Spondylosis without myelopathy or radiculopathy, lumbar region (principal); M85.88 Other specified disorders of bone density and structure, other site; M51.36 Other intervertebral disc degeneration, lumbar region ==

== ENCOUNTER → 2023-12-27 | Outpatient (CLI) | payer MEDICARE, MEDICAID | LOC: M PLAIMG 15:29 | PROVIDERS: ATTEND Family Medicine | DX: M53.3 Sacrococcygeal disorders, not elsewhere classified (principal); Z91.81 History of falling ==

== ENCOUNTER → 2024-01-02 | Outpatient (CLI) | payer MEDICARE, MEDICAID | LOC: M RAD 13:49 | PROVIDERS: ATTEND Family Medicine | DX: E05.20 Thyrotoxicosis with toxic multinodular goiter without thyrotoxic crisis or storm (principal) ==

== ENCOUNTER → 2024-01-03 | Outpatient (CLI) | payer MEDICARE, MEDICAID | LOC: M SOG 13:02 | PROVIDERS: ATTEND Orthopaedic Surgery | DX: M21.42 Flat foot [pes planus] (acquired), left foot (principal); M25.572 Pain in left ankle and joints of left foot ==

== ENCOUNTER → 2024-01-14 | Outpatient (REF) | payer MEDICARE, MEDICAID | LOC: M SFHCPLAZ 10:10 | PROVIDERS: ATTEND Physician Assistant Medical | DX: J40 Bronchitis, not specified as acute or chronic (principal) ==

== ENCOUNTER → 2024-02-04 | Outpatient (CLI) | payer MEDICARE, MEDICAID ==
[~2024-02-04] MED LIST changes: +MUCI600T31 PO
== END ==
LOC: M PLAIMG 16:08
PROVIDERS: ATTEND Nurse Practitioner Adult Health
DX: J45.41 Moderate persistent asthma with (acute) exacerbation (principal); R05.9 Cough, unspecified

== ENCOUNTER 2024-02-05 16:01 | Emergency (ER) | payer MEDICARE, MEDICAID ==
[~2024-02-05] VITALS: Ht 170.2 cm; Wt 112.2 kg
[~2024-02-05 16:01] MED LIST changes: -MUCI600T31 PO
[2024-02-05] MEDS: predniSONE 20 MG TAB PO ONE (18:39)
[2024-02-05 19:04] LABS: BASO % 0.9 % (0.0-1.0); EOS # 0.2 10^3/uL (0.0-0.5); EOS % 4.4 % (0.0-3.0); HEMATOCRIT 40.2 % (36.0-47.0); HEMOGLOBIN 12.8 g/dl (12.0-15.5); LYMPH % 22.8 % (24.0-44.0); MEAN CORPUSCULAR HEMOGLOBIN 27.6 pg (27.0-33.0); MEAN CORPUSCULAR HGB CONC 31.8 g/dl (32.0-36.5); MEAN CORPUSCULAR VOLUME 86.6 fl (80.0-96.0); MONO # 0.3 10^3/uL (0.0-0.8); MONO % 6.6 % (2.0-8.0); NEUTROPHILS % 65.3 % (36.0-66.0); PLATELET COUNT, AUTOMATED 242 10^3/uL (150-450); RED BLOOD COUNT 4.64 10^6/uL (4.00-5.40); WHITE BLOOD COUNT 4.5 10^3/uL (4.0-10.0)
[2024-02-05 19:30] LABS: BLOOD UREA NITROGEN 15 MG/DL (9-23); CALCIUM LEVEL 9.2 MG/DL (8.3-10.6); CARBON DIOXIDE LEVEL 26 MMOL/L (20-31); CHLORIDE LEVEL 108 MMOL/L (98-107); CREATININE FOR GFR 0.74 MG/DL (0.55-1.30); GLOMERULAR FILTRATION RATE > 60.0 (>45); GLUCOSE, FASTING 91 MG/DL (74-106); POTASSIUM SERUM 3.7 MMOL/L (3.5-5.1); SODIUM LEVEL 139 MMOL/L (136-145)
[2024-02-05] MEDS: IPRATROPIUM 0.5MG/ALBUTEROL 2.5MG INH SOL UD 3ML (DUONEB) NEB ONE (19:46)
[2024-02-05] MEDS ORDERED: MUCI600T31 PO (20:44)
[2024-02-05] MEDS: ACETAMINOPHEN TAB 650MG DOSE (2X325MG) PO ONE (20:52)
[2024-02-05 20:54] VITALS: BP 150/85; TEMP 96.8; O2SAT 97
== END 2024-02-05 20:58 | disposition home or self-care (01) ==
LOC: M ED 16:01
DX: J45.901 Unspecified asthma with (acute) exacerbation (principal); J20.9 Acute bronchitis, unspecified; Z88.0 Allergy status to penicillin; Z88.1 Allergy status to other antibiotic agents; Z88.5 Allergy status to narcotic agent; Z88.8 Allergy status to other drugs, medicaments and biological substances; Z91.040 Latex allergy status; Z79.51 Long term (current) use of inhaled steroids; Z79.1 Long term (current) use of non-steroidal anti-inflammatories (NSAID); Z79.2 Long term (current) use of antibiotics; Z79.899 Other long term (current) drug therapy
CPT/HCPCS: 36415; 80048; 85025; 87486; 87581; 87633; 87798; 94640; 99283; J7512

== ENCOUNTER → 2024-02-11 | Outpatient (REF) | payer MEDICARE, MEDICAID ==
[~2024-02-11] MED LIST changes: +MUCI600T31 PO
== END ==
LOC: M SFHCPLAZ 16:32
PROVIDERS: ATTEND Family Medicine
DX: E61.1 Iron deficiency (principal); I50.32 Chronic diastolic (congestive) heart failure; E05.20 Thyrotoxicosis with toxic multinodular goiter without thyrotoxic crisis or storm; M05.79 Rheumatoid arthritis with rheumatoid factor of multiple sites without organ or systems involvement; J45.30 Mild persistent asthma, uncomplicated; E78.2 Mixed hyperlipidemia

== ENCOUNTER → 2024-02-18 | Outpatient (CLI) | payer MEDICARE, MEDICAID ==
[~2024-02-18] MED LIST changes: +GABA-1490 PO; -GABA600T4 PO
== END ==
LOC: M SOG 08:11
PROVIDERS: ATTEND Orthopaedic Surgery
DX: M25.511 Pain in right shoulder (principal); Z96.611 Presence of right artificial shoulder joint

== ENCOUNTER → 2024-02-19 | Outpatient (REF) | payer MEDICARE, MEDICAID | LOC: M SFHCPLAZ 10:00 | PROVIDERS: ATTEND Physician Assistant | DX: R05.3 Chronic cough (principal) ==

== ENCOUNTER → 2024-02-20 | Outpatient (CLI) | payer MEDICARE, MEDICAID ==
[~2024-02-20] MED LIST changes: +ISOVUE-370 76% 100ML VIAL ONE
== END ==
LOC: M PLAIMG 07:49
PROVIDERS: ATTEND Physician Assistant
DX: R05.3 Chronic cough (principal); E04.9 Nontoxic goiter, unspecified; J98.11 Atelectasis; K80.20 Calculus of gallbladder without cholecystitis without obstruction
CPT/HCPCS: 71260; Q9967

== ENCOUNTER → 2024-02-21 | Outpatient (CLI) | payer MEDICARE, MEDICAID ==
[~2024-02-21] MED LIST changes: -ISOVUE-370 76% 100ML VIAL ONE
== END ==
LOC: M RAD 12:44
PROVIDERS: ATTEND Physician Assistant
DX: R60.0 Localized edema (principal)

== ENCOUNTER → 2024-03-06 | Outpatient (CLI) | payer MEDICARE, MEDICAID ==
[2024-03-06 15:08] LABS: HEMATOCRIT 41.2 % (36.0-47.0); HEMOGLOBIN 13.1 g/dl (12.0-15.5); MEAN CORPUSCULAR HEMOGLOBIN 27.7 pg (27.0-33.0); MEAN CORPUSCULAR HGB CONC 31.8 g/dl (32.0-36.5); MEAN CORPUSCULAR VOLUME 87.1 fl (80.0-96.0); PLATELET COUNT, AUTOMATED 250 10^3/uL (150-450); RED BLOOD COUNT 4.73 10^6/uL (4.00-5.40); WHITE BLOOD COUNT 4.6 10^3/uL (4.0-10.0)
[2024-03-06 15:20] LABS: ERYTHROCYTE SEDIMENTATION RATE 26 mm/hr (0-30)
[2024-03-06 15:37] LABS: C REACTIVE PROTEIN QUANTITATIV < 0.40 MG/DL (<1.0)
[2024-03-06 15:40] LABS: FERRITIN 14.2 NG/ML (7.3-270.7); THYROID STIMULATING HORMONE 4.303 uIU/ML (0.55-4.78)
[2024-03-06 15:52] LABS: ALBUMIN 3.4 G/DL (3.2-5.2); ALKALINE PHOSPHATASE 82 U/L (46-116); ALT/SGPT 20 U/L (7.0-40); AST/SGOT 15 U/L (<34); BILIRUBIN,TOTAL 0.3 MG/DL (0.3-1.2); BLOOD UREA NITROGEN 19 MG/DL (9-23); CALCIUM LEVEL 9.6 MG/DL (8.3-10.6); CARBON DIOXIDE LEVEL 27 MMOL/L (20-31); CHLORIDE LEVEL 113 MMOL/L (98-107); CHOLESTEROL LEVEL 195 MG/DL (<200); CHOLESTEROL RISK RATIO 2.73 (<5); CREATININE FOR GFR 0.83 MG/DL (0.55-1.30); GLOMERULAR FILTRATION RATE > 60.0 (>45); GLUCOSE, FASTING 92 MG/DL (74-106); HDL CHOLESTEROL 71.3 MG/DL (>40); LDL CHOLESTEROL 104.3 MG/DL (<100); NON-HDL-C 123.7 MG/DL; POTASSIUM SERUM 4.3 MMOL/L (3.5-5.1); SODIUM LEVEL 141 MMOL/L (136-145); TOTAL PROTEIN 6.3 G/DL (5.7-8.2); TRIGLYCERIDES LEVEL 97 MG/DL (<150)
== END ==
LOC: M LAB 14:31
PROVIDERS: ATTEND Family Medicine
DX: E61.1 Iron deficiency (principal); I50.32 Chronic diastolic (congestive) heart failure; M05.79 Rheumatoid arthritis with rheumatoid factor of multiple sites without organ or systems involvement; J45.30 Mild persistent asthma, uncomplicated; E05.20 Thyrotoxicosis with toxic multinodular goiter without thyrotoxic crisis or storm; E78.2 Mixed hyperlipidemia

== ENCOUNTER → 2024-03-26 | Outpatient (CLI) | payer MEDICARE, MEDICAID ==
[~2024-03-26] MED LIST changes: +GABA-1172 PO; -GABA-282 PO; -ROSU20TA61; +ROSU20TA86
[2024-03-26 13:57] LABS: APPEARANCE, URINE CLEAR (CLEAR); BACTERIA, URINE AUTO NEGATIVE (NEGATIVE); BILIRUBIN, URINE AUTO NEGATIVE (NEGATIVE); BLOOD, URINE BLOOD NEGATIVE (NEGATIVE); COLOR, URINE YELLOW (YELLOW); GLUCOSE, URINE (UA) AUTO NEGATIVE (NEGATIVE); KETONE, URINE AUTO NEGATIVE (NEGATIVE); LEUKOCYTE ESTERASE, URINE AUTO NEGATIVE (NEGATIVE); NITRITE, URINE AUTO NEGATIVE (NEGATIVE); PROTEIN, URINE AUTO NEGATIVE (NEGATIVE); RBC, URINE AUTO 0 /HPF (0-3); SPECIFIC GRAVITY URINE AUTO 1.013 (1.002-1.035); SQUAMOUS EPITHELIAL CELL UR AU 0 /HPF (0-6); UROBILINOGEN, URINE AUTO 0.2 mg/dL (0.0-2.0); WBC, URINE AUTO 0 /HPF (0-3)
== END ==
LOC: M PLALAB 10:32 → M PLAIMG 10:32
PROVIDERS: ATTEND Physician Assistant Medical
DX: M54.16 Radiculopathy, lumbar region (principal); M79.672 Pain in left foot; R32 Unspecified urinary incontinence

== ENCOUNTER → 2024-03-30 | Outpatient (CLI) | payer MEDICARE, MEDICAID ==
[~2024-03-30] MED LIST changes: +PROHANCE 279.3MG/ML 15ML VIAL As Ordered ONE; +PROHANCE 279.3MG/ML 5ML VIAL As Ordered ONE
== END ==
LOC: M RAD 12:28
PROVIDERS: ATTEND Physician Assistant Medical
DX: M54.16 Radiculopathy, lumbar region (principal); M79.672 Pain in left foot; M47.816 Spondylosis without myelopathy or radiculopathy, lumbar region; M47.817 Spondylosis without myelopathy or radiculopathy, lumbosacral region; M48.061 Spinal stenosis, lumbar region without neurogenic claudication; M47.815 Spondylosis without myelopathy or radiculopathy, thoracolumbar region
CPT/HCPCS: 72158; A9576

== ENCOUNTER 2024-04-16 14:33 | Emergency (ER) | payer MEDICARE, MEDICAID ==
[~2024-04-16] VITALS: Ht 170.2 cm; Wt 109.1 kg
[~2024-04-16 14:33] MED LIST changes: +CELE0.09 PO; +CITA40TA7 PO; +FLUTISP; +MIRT-10 PO; -PENT400T22; +PENT400T22 PO; -PROHANCE 279.3MG/ML 15ML VIAL As Ordered ONE; -PROHANCE 279.3MG/ML 5ML VIAL As Ordered ONE; -ROPI0.5T33; +ROPI0.5T33 PO; -ROSU20TA86; +ROSU20TA86 PO; +TOPI-21 PO
[2024-04-16] MEDS ORDERED: CELE0.09 (14:47)
[2024-04-16] MEDS ORDERED: METH25TAB (14:47)
[2024-04-16] MEDS ORDERED: SUCR1TAB56 (14:47)
[2024-04-16] MEDS: LIDOCAINE 1% MDV 20ML VIAL SC ONE (15:49)
[2024-04-16] MEDS: BOOSTRIX VACCINE (TETANUS/DIPHTH/ACEL. PERTUSSIS) 0.5ML SYR IM.IMMUN ONE (17:17)
[2024-04-16 17:33] VITALS: BP 173/96; TEMP 96.8; O2SAT 95
[2024-04-16] MEDS ORDERED: BACT800T5 PO (17:46)
== END 2024-04-16 18:15 | disposition home or self-care (01) ==
LOC: M ED 14:33
DX: S81.811A Laceration without foreign body, right lower leg, initial encounter (principal); Y92.019 Unspecified place in single-family (private) house as the place of occurrence of the external cause; Y93.9 Activity, unspecified; Y99.9 Unspecified external cause status; E03.9 Hypothyroidism, unspecified; Z23 Encounter for immunization; Z88.0 Allergy status to penicillin; Z88.1 Allergy status to other antibiotic agents; Z88.5 Allergy status to narcotic agent; Z88.8 Allergy status to other drugs, medicaments and biological substances; Z79.51 Long term (current) use of inhaled steroids; Z79.899 Other long term (current) drug therapy

== ENCOUNTER 2024-04-19 19:01 | Emergency (ER) | payer MEDICARE, MEDICAID ==
[~2024-04-19] VITALS: Ht 170.2 cm; Wt 109.1 kg
[~2024-04-19 19:01] MED LIST changes: +CELE0.09; +SUCR1TAB56
[2024-04-19 19:03] VITALS: BP 160/87; TEMP 97.1; O2SAT 97
== END 2024-04-19 20:20 | disposition home or self-care (01) ==
LOC: M ED 19:01
DX: S81.811D Laceration without foreign body, right lower leg, subsequent encounter (principal); I89.0 Lymphedema, not elsewhere classified; K21.9 Gastro-esophageal reflux disease without esophagitis; E78.5 Hyperlipidemia, unspecified; E03.9 Hypothyroidism, unspecified; Z88.0 Allergy status to penicillin; Z88.1 Allergy status to other antibiotic agents; Z88.5 Allergy status to narcotic agent; Z88.8 Allergy status to other drugs, medicaments and biological substances; Z79.51 Long term (current) use of inhaled steroids; Z79.899 Other long term (current) drug therapy

== ENCOUNTER 2024-06-12 16:02 | Emergency (ER) | payer MEDICARE, MEDICAID ==
[~2024-06-12] VITALS: Ht 170.2 cm; Wt 111.4 kg
[~2024-06-12 16:02] MED LIST changes: +BENA2CRE3 TOP; -CELE0.09; -CYCL5TAB; -CYCL5TAB PO; +CYCL5TAB4; +CYCL5TAB4 PO; +EXCETAB32 PO; -FLUTISP; +FLUTISP NARES; +HYDR-3363 PO; +METH-1386; +METH-1386 PO; -METH25TAB; +MONT10TA97 PO; +MULT-40 PO; -SUCR1TAB56; +SUCR1TAB56 PO; +VITA200030 PO
[2024-06-12 16:06] VITALS: TEMP 97.5
[2024-06-12 18:33] VITALS: BP 134/82; O2SAT 99
[2024-06-12] MEDS: KETOROLAC 30 MG/ML 1ML VIAL IM ONE (19:15)
[2024-06-12] MEDS ORDERED: MEDR4PAK PO (20:05)
[2024-06-12] MEDS: NORCO 5/325MG TABLET (HOME DOSE PACK) PO ONE (20:18)
== END 2024-06-12 20:23 | disposition home or self-care (01) ==
LOC: M ED 16:02
DX: M75.21 Bicipital tendinitis, right shoulder (principal); J45.909 Unspecified asthma, uncomplicated; K21.9 Gastro-esophageal reflux disease without esophagitis; Z88.0 Allergy status to penicillin; Z88.1 Allergy status to other antibiotic agents; Z88.5 Allergy status to narcotic agent; Z88.8 Allergy status to other drugs, medicaments and biological substances; Z91.040 Latex allergy status; Z79.51 Long term (current) use of inhaled steroids; Z79.2 Long term (current) use of antibiotics; Z79.1 Long term (current) use of non-steroidal anti-inflammatories (NSAID); Z79.810 Long term (current) use of selective estrogen receptor modulators (SERMs); Z79.899 Other long term (current) drug therapy
CPT/HCPCS: 73030; 73200; 96372; 99283; J1885

== ENCOUNTER → 2024-07-13 | Outpatient (CLI) | payer MEDICARE, MEDICAID ==
[~2024-07-13] MED LIST changes: +MEDR4PAK PO
[2024-07-13 17:55] LABS: BASO % 1.1 % (0.0-1.0); EOS # 0.1 10^3/uL (0.0-0.5); EOS % 1.7 % (0.0-3.0); HEMATOCRIT 40.9 % (36.0-47.0); HEMOGLOBIN 12.5 g/dl (12.0-15.5); LYMPH # 0.9 10^3/uL (1.5-5.0); LYMPH % 24.3 % (24.0-44.0); MEAN CORPUSCULAR HGB CONC 30.6 g/dl (32.0-36.5); MEAN CORPUSCULAR VOLUME 85.2 fl (80.0-96.0); MONO # 0.4 10^3/uL (0.0-0.8); MONO % 10.9 % (2.0-8.0); NEUTROPHILS # 2.2 10^3/uL (1.5-8.5); NEUTROPHILS % 61.7 % (36.0-66.0); PLATELET COUNT, AUTOMATED 342 10^3/uL (150-450); WHITE BLOOD COUNT 3.6 10^3/uL (4.0-10.0)
[2024-07-13 18:04] LABS: ERYTHROCYTE SEDIMENTATION RATE 63 mm/hr (0-30)
[2024-07-13 18:08] LABS: ALKALINE PHOSPHATASE 75 U/L (35-104); ALT/SGPT 21 U/L (7.0-40); AST/SGOT 16 U/L (<34); BILIRUBIN,TOTAL 0.6 MG/DL (0.3-1.2); BLOOD UREA NITROGEN 9 MG/DL (9-23); CALCIUM LEVEL 9.5 MG/DL (8.3-10.6); CARBON DIOXIDE LEVEL 28 MMOL/L (20-31); CHLORIDE LEVEL 103 MMOL/L (98-107); CREATININE FOR GFR 0.62 MG/DL (0.55-1.30); FERRITIN 40.2 NG/ML (7.3-270.7); GLOMERULAR FILTRATION RATE > 60.0 (>45); GLUCOSE, FASTING 99 MG/DL (74-106); POTASSIUM SERUM 4.2 MMOL/L (3.5-5.1); SODIUM LEVEL 142 MMOL/L (136-145); TOTAL PROTEIN 6.7 G/DL (5.7-8.2)
[2024-07-13 18:09] LABS: THYROID STIMULATING HORMONE < 0.010 uIU/ML (0.55-4.78)
[2024-07-13 18:10] LABS: FREE T4 1.52 NG/DL (0.89-1.76)
== END ==
LOC: M PLALAB 14:01
PROVIDERS: ATTEND Family Medicine
DX: E61.1 Iron deficiency (principal); J45.30 Mild persistent asthma, uncomplicated; M05.79 Rheumatoid arthritis with rheumatoid factor of multiple sites without organ or systems involvement; E05.20 Thyrotoxicosis with toxic multinodular goiter without thyrotoxic crisis or storm; I50.32 Chronic diastolic (congestive) heart failure

== ENCOUNTER → 2024-07-13 | Outpatient (CLI) | payer MEDICARE, MEDICAID | LOC: M PLAIMG 13:58 | PROVIDERS: ATTEND Physician Assistant Medical | DX: R04.2 Hemoptysis (principal) ==

== ENCOUNTER → 2024-09-14 | Outpatient (CLI) | payer MEDICARE, MEDICAID ==
[~2024-09-14] MED LIST changes: +ADVA1AER9 INH
[2024-09-14 17:46] LABS: ALBUMIN 3.7 G/DL (3.2-5.2); ALKALINE PHOSPHATASE 75 U/L (35-104); ALT/SGPT 21 U/L (7.0-40); AST/SGOT 18 U/L (<34); BILIRUBIN,TOTAL 0.5 MG/DL (0.3-1.2); BLOOD UREA NITROGEN 15 MG/DL (9-23); CALCIUM LEVEL 9.5 MG/DL (8.3-10.6); CARBON DIOXIDE LEVEL 29 MMOL/L (20-31); CHLORIDE LEVEL 104 MMOL/L (98-107); GLOMERULAR FILTRATION RATE > 60.0 (>45); GLUCOSE, FASTING 94 MG/DL (74-106); MAGNESIUM LEVEL 2.1 MG/DL (1.8-2.4); POTASSIUM SERUM 4.2 MMOL/L (3.5-5.1); SODIUM LEVEL 139 MMOL/L (136-145); TOTAL PROTEIN 6.7 G/DL (5.7-8.2)
[2024-09-14 17:48] LABS: BASO % 0.9 % (0.0-1.0); EOS # 0.1 10^3/uL (0.0-0.5); EOS % 3.3 % (0.0-3.0); FERRITIN 11.2 NG/ML (7.3-270.7); HEMATOCRIT 40.9 % (36.0-47.0); HEMOGLOBIN 12.8 g/dl (12.0-15.5); LYMPH # 1.4 10^3/uL (1.5-5.0); LYMPH % 32.8 % (24.0-44.0); MEAN CORPUSCULAR HEMOGLOBIN 26.6 pg (27.0-33.0); MEAN CORPUSCULAR HGB CONC 31.3 g/dl (32.0-36.5); MONO # 0.4 10^3/uL (0.0-0.8); MONO % 9.1 % (2.0-8.0); NEUTROPHILS # 2.3 10^3/uL (1.5-8.5); NEUTROPHILS % 53.7 % (36.0-66.0); PLATELET COUNT, AUTOMATED 269 10^3/uL (150-450); RED BLOOD COUNT 4.81 10^6/uL (4.00-5.40); THYROID STIMULATING HORMONE 0.399 uIU/ML (0.55-4.78); WHITE BLOOD COUNT 4.3 10^3/uL (4.0-10.0)
[2024-09-14 17:49] LABS: FREE T4 0.92 NG/DL (0.89-1.76)
== END ==
LOC: M PLALAB 15:02
PROVIDERS: ATTEND Family Medicine
DX: E61.1 Iron deficiency (principal); I50.32 Chronic diastolic (congestive) heart failure; E05.20 Thyrotoxicosis with toxic multinodular goiter without thyrotoxic crisis or storm; Z15.89 Genetic susceptibility to other disease

== ENCOUNTER 2024-10-01 08:04 | Outpatient (CLI) | payer MEDICARE, MEDICAID ==
[~2024-10-01] VITALS: Ht 170.2 cm; Wt 113.6 kg
[~2024-10-01 08:04] MED LIST changes: +ALBUTEROL SULFATE 2.5MG/0.5ML INH CONCENTRATE NEB SOLN INH PRN; +EPINEPHrine INJ 1 MG/ML 1ML AMP IM PRN; +diphenhydrAMINE 50MG/ML VIAL IV PRN; +methylPREDNISolone 125MG 2ML VIAL IV PRN
[2024-10-01 08:50] VITALS: BP 127/88; O2SAT 100
[2024-10-01] MEDS: NS IV ONE (09:11)
[2024-10-01] MEDS: IRON SUCROSE COMPLEX IV ONE (09:11)
[2024-10-01] MEDS: IRON SUCROSE IV ONE (09:11)
[2024-10-01 10:00] VITALS: BP 130/76; O2SAT 99
[2024-10-01 11:00] VITALS: BP 133/90; O2SAT 100
[2024-10-01 12:00] VITALS: BP 139/88; O2SAT 100
[2024-10-01 13:20] VITALS: BP 141/76; O2SAT 98
== END 2024-10-01 13:45 | disposition home or self-care (01) ==
LOC: M INFU 08:04
PROVIDERS: ATTEND Family Medicine
DX: D50.9 Iron deficiency anemia, unspecified (principal); Z88.0 Allergy status to penicillin; Z88.1 Allergy status to other antibiotic agents; Z88.5 Allergy status to narcotic agent; Z88.8 Allergy status to other drugs, medicaments and biological substances
CPT/HCPCS: 96365; 96366; J1756

== ENCOUNTER → 2024-11-24 | Outpatient (CLI) | payer MEDICARE, MEDICAID ==
[~2024-11-24] MED LIST changes: -ALBUTEROL SULFATE 2.5MG/0.5ML INH CONCENTRATE NEB SOLN INH PRN; -AMBI5TAB PO; -EPINEPHrine INJ 1 MG/ML 1ML AMP IM PRN; +LIFI1DRO4; -XIID5DRO; +ZOLP-532 PO; -diphenhydrAMINE 50MG/ML VIAL IV PRN; -methylPREDNISolone 125MG 2ML VIAL IV PRN
[2024-11-24 15:27] LABS: ALKALINE PHOSPHATASE 76 U/L (35-104); ALT/SGPT 22 U/L (7.0-40); AST/SGOT 18 U/L (<34); BILIRUBIN,TOTAL 0.6 MG/DL (0.3-1.2); BLOOD UREA NITROGEN 18 MG/DL (9-23); CALCIUM LEVEL 9.9 MG/DL (8.3-10.6); CARBON DIOXIDE LEVEL 28 MMOL/L (20-31); CHLORIDE LEVEL 107 MMOL/L (98-107); CREATININE FOR GFR 0.71 MG/DL (0.55-1.30); GLOMERULAR FILTRATION RATE > 90.0 (>45); GLUCOSE, FASTING 94 MG/DL (74-106); POTASSIUM SERUM 4.2 MMOL/L (3.5-5.1); SODIUM LEVEL 145 MMOL/L (136-145); TOTAL PROTEIN 6.7 G/DL (5.7-8.2)
[2024-11-24 15:31] LABS: BASO % 0.7 % (0.0-1.0); EOS # 0.2 10^3/uL (0.0-0.5); EOS % 4.9 % (0.0-3.0); FREE T4 0.89 NG/DL (0.89-1.76); HEMATOCRIT 44.2 % (36.0-47.0); HEMOGLOBIN 13.9 g/dl (12.0-15.5); LYMPH # 1.2 10^3/uL (1.5-5.0); LYMPH % 28.2 % (24.0-44.0); MEAN CORPUSCULAR HEMOGLOBIN 27.7 pg (27.0-33.0); MEAN CORPUSCULAR HGB CONC 31.4 g/dl (32.0-36.5); MONO # 0.4 10^3/uL (0.0-0.8); MONO % 8.2 % (2.0-8.0); NEUTROPHILS # 2.5 10^3/uL (1.5-8.5); NEUTROPHILS % 57.8 % (36.0-66.0); PLATELET COUNT, AUTOMATED 232 10^3/uL (150-450); RED BLOOD COUNT 5.02 10^6/uL (4.00-5.40); THYROID STIMULATING HORMONE 1.645 uIU/ML (0.55-4.78); WHITE BLOOD COUNT 4.3 10^3/uL (4.0-10.0)
== END ==
LOC: M PLALAB 11:36
PROVIDERS: ATTEND Student in an Organized Health Care Education/Training Program
DX: R06.00 Dyspnea, unspecified (principal); E05.20 Thyrotoxicosis with toxic multinodular goiter without thyrotoxic crisis or storm

== ENCOUNTER 2025-02-15 14:49 | Emergency (ER) | payer MEDICARE, MEDICAID ==
[~2025-02-15] VITALS: Ht 170.2 cm; Wt 121.9 kg
[~2025-02-15 14:49] MED LIST changes: -IBUP-1022 PO; +IBUP600T42 PO
[2025-02-15] MEDS: DALBAVANCIN 1,500 MG in D5W 250 ML IV ONE (17:20)
[2025-02-15] MEDS: KETOROLAC 30 MG/ML 1 ML VIAL IV ONE (17:44)
[2025-02-15 17:50] LABS: BASO # 0.0 10^3/uL (0.0-0.2); BASO % 0.9 % (0.0-1.0); EOS # 0.2 10^3/uL (0.0-0.5); EOS % 4.4 % (0.0-3.0); LYMPH # 1.4 10^3/uL (1.5-5.0); LYMPH % 29.6 % (24.0-44.0); MONO # 0.4 10^3/uL (0.0-0.8); MONO % 8.8 % (2.0-8.0); NEUTROPHILS # 2.6 10^3/uL (1.5-8.5); NEUTROPHILS % 56.1 % (36.0-66.0); PLATELET COUNT, AUTOMATED 222 10^3/uL (150-450)
[2025-02-15 18:19] LABS: CALCIUM LEVEL 10.0 MG/DL (8.3-10.6); CARBON DIOXIDE LEVEL 29 MMOL/L (20-31); CHLORIDE LEVEL 103 MMOL/L (98-107); CREATININE FOR GFR 0.68 MG/DL (0.55-1.30); GLOMERULAR FILTRATION RATE > 90.0 (>45); POTASSIUM SERUM 4.0 MMOL/L (3.5-5.1); SODIUM LEVEL 142 MMOL/L (136-145)
[2025-02-15 20:43] LABS: CK-MB VALUE MASS 4.6 NG/ML (<3.6); MAGNESIUM LEVEL 2.3 MG/DL (1.8-2.4)
[2025-02-15 20:45] LABS: CPK CREATINE PHOSPHOKINASE 136 U/L (34-145); MB/CK RELATIVE INDEX 3.38 (< OR =4)
[2025-02-15 20:47] LABS: FREE T4 1.03 NG/DL (0.89-1.76)
[2025-02-15] MEDS ORDERED: MEDR4PAK PO (21:42)
[2025-02-15 21:45] VITALS: BP 154/87; TEMP 96.7; O2SAT 97
== END 2025-02-15 21:59 | disposition home or self-care (01) ==
LOC: M ED 14:49
DX: L03.115 Cellulitis of right lower limb (principal); I89.0 Lymphedema, not elsewhere classified; G47.33 Obstructive sleep apnea (adult) (pediatric); J45.909 Unspecified asthma, uncomplicated; Z88.0 Allergy status to penicillin; Z88.1 Allergy status to other antibiotic agents; Z88.5 Allergy status to narcotic agent; Z88.8 Allergy status to other drugs, medicaments and biological substances; Z91.040 Latex allergy status; Z79.51 Long term (current) use of inhaled steroids; Z79.1 Long term (current) use of non-steroidal anti-inflammatories (NSAID); Z79.899 Other long term (current) drug therapy; Z79.810 Long term (current) use of selective estrogen receptor modulators (SERMs)
CPT/HCPCS: 71045; 80048; 82550; 82553; 83735; 83880; 84439; 84443; 84484; 85025; 87040; 93005; 93041; 96365; 96366; 96375; 99284; J0875; J1885

== ENCOUNTER → 2025-03-05 | Outpatient (REF) | payer MEDICARE | LOC: M SFHCPLAZ 14:00 | PROVIDERS: ATTEND Family Medicine | DX: Z53.9 Procedure and treatment not carried out, unspecified reason (principal) ==

== ENCOUNTER → 2025-03-05 | Outpatient (CLI) | payer MEDICARE ==
[2025-03-05 17:19] LABS: BASO # 0.0 10^3/uL (0.0-0.2); BASO % 0.9 % (0.0-1.0); EOS # 0.2 10^3/uL (0.0-0.5); EOS % 3.2 % (0.0-3.0); LYMPH # 1.2 10^3/uL (1.5-5.0); LYMPH % 26.7 % (24.0-44.0); MONO # 0.4 10^3/uL (0.0-0.8); MONO % 8.2 % (2.0-8.0); NEUTROPHILS # 2.8 10^3/uL (1.5-8.5); NEUTROPHILS % 60.8 % (36.0-66.0); PLATELET COUNT, AUTOMATED 235 10^3/uL (150-450)
== END ==
LOC: M PLALAB 14:22
PROVIDERS: ATTEND Family Medicine
DX: R07.89 Other chest pain (principal); I50.32 Chronic diastolic (congestive) heart failure

== ENCOUNTER → 2025-03-09 | Outpatient (CLI) | payer MEDICARE ==
[2025-03-09 18:04] LABS: C REACTIVE PROTEIN QUANTITATIV < 0.50 MG/DL (<1.0)
[2025-03-09 18:05] LABS: ALT/SGPT 24 U/L (7.0-40); AST/SGOT 21 U/L (<34); CALCIUM LEVEL 9.2 MG/DL (8.3-10.6); CARBON DIOXIDE LEVEL 31 MMOL/L (20-31); CHLORIDE LEVEL 105 MMOL/L (98-107); CREATININE FOR GFR 0.79 MG/DL (0.55-1.30); GLOMERULAR FILTRATION RATE 81.9 (>45); MAGNESIUM LEVEL 2.2 MG/DL (1.8-2.4); POTASSIUM SERUM 4.1 MMOL/L (3.5-5.1); SODIUM LEVEL 142 MMOL/L (136-145)
[2025-03-09 18:07] LABS: VITAMIN B12 LEVEL 403 PG/ML (211-911)
[2025-03-09 18:13] LABS: BASO # 0.0 10^3/uL (0.0-0.2); BASO % 0.8 % (0.0-1.0); EOS # 0.2 10^3/uL (0.0-0.5); EOS % 5.5 % (0.0-3.0); LYMPH # 1.0 10^3/uL (1.5-5.0); LYMPH % 28.3 % (24.0-44.0); MONO # 0.4 10^3/uL (0.0-0.8); MONO % 10.2 % (2.0-8.0); NEUTROPHILS # 2.0 10^3/uL (1.5-8.5); NEUTROPHILS % 54.9 % (36.0-66.0); PLATELET COUNT, AUTOMATED 229 10^3/uL (150-450)
[2025-03-09 18:34] LABS: ERYTHROCYTE SEDIMENTATION RATE 25 mm/hr (0-30)
[2025-03-09 18:45] LABS: ESTIMATED AVERAGE GLUCOSE 114.0 MG/DL (60-110)
== END ==
LOC: M PLALAB 14:20
PROVIDERS: ATTEND Family Medicine
DX: J45.30 Mild persistent asthma, uncomplicated (principal); M05.79 Rheumatoid arthritis with rheumatoid factor of multiple sites without organ or systems involvement; I50.32 Chronic diastolic (congestive) heart failure; E61.1 Iron deficiency; R73.01 Impaired fasting glucose; E53.8 Deficiency of other specified B group vitamins

== ENCOUNTER → 2025-03-11 | Outpatient (CLI) | payer MEDICARE, MEDICAID | LOC: M WHC 14:00 | PROVIDERS: ATTEND Family Medicine | DX: Z12.31 Encounter for screening mammogram for malignant neoplasm of breast (principal); R92.313 Mammographic fatty tissue density, bilateral breasts ==